=== PATIENT | male | born 1970 | race Caucasian/White ===

== ENCOUNTER 2020-08-01 18:49 | Inpatient (IN) | payer MEDICARE, MEDICAID ==
[~2020-08-01] VITALS: Ht 175.3 cm; Wt 72.1 kg
[2020-08-01 18:50] VITALS: BP 136/90
[2020-08-01 19:57] LABS: BILIRUBIN Negative (Negative); BLOOD 1+ (Negative); CLARITY Clear (Clear); COLOR Yellow (Yellow); GLUCOSE 3+ (Negative); KETONE 1+ (Negative); LEUKO ESTERASE Negative (Negative); NITRITE Negative (Negative); SPECIFIC GRAVITY >= 1.030 (1.001-1.030); UROBILINOGEN 0.2 E.U./dl (0.0-1.0)
[2020-08-01 20:04] LABS: HEMATOCRIT 58.3 % (42.0-52.0); MEAN CELL VOLUME 93.9 fl (80.0-94.0); MEAN CORPUSCULAR HGB 28.3 pg (27.0-31.0); MEAN CORPUSCULAR HGB CONC 30.2 g/dl (33.0-37.0); MEAN PLATELET VOLUME 10.7 fl (9.6-12.3); PLATELET COUNT AUTOMATED 600 10*3/uL (130-400); RED BLOOD COUNT 6.21 10*6/uL (4.50-5.90); RED CELL DISTRI WIDTH 12.7 % (0-14.5); WHITE BLOOD COUNT 27.9 10*3/uL (4.8-10.8)
[2020-08-01 20:06] LABS: URINE AMPHETAMINES < 1000 (1000ng/ml); URINE BARBITURATES < 200 (200ng/ml); URINE BENZODIAZEPINES < 200 (200ng/ml); URINE CANNABINOIDS (THC) < 50 (50ng/ml); URINE COCAINE < 300 (300ng/ml); URINE METHADONE < 300 (300ng/ml); URINE OPIATES < 300 (300ng/ml)
[2020-08-01 20:12] LABS: INTERNATIONAL NORM RATIO 1.1 (2.0-3.5)
[2020-08-01 20:16] LABS: BACTERIA TRACE
[2020-08-01 20:16] LABS: ALKALINE PHOSPHATASE 225 U/L (45-117); BUN 78 mg/dl (7-24); CHLORIDE 113 mmol/L (98-107); CREATININE 2.38 mg/dL (0.70-1.30); POTASSIUM 4.2 mmol/L (3.5-5.1); SGOT/AST 12 IU/L (3-35); SGPT/ALT 22 U/L (12-78); SODIUM 152 mmol/L (136-145); TOTAL PROTEIN 9.5 gm/dL (6.4-8.2)
[2020-08-01 20:19] LABS: TROPONIN I < 0.015 ng/ml (<0.045)
[2020-08-01 20:19] LABS: URINE PHENCYCLIDINE < 25 (25ng/ml)
[2020-08-01 20:22] LABS: ALBUMIN 2.9 gm/dl (3.1-4.5)
[2020-08-01 20:31] LABS: PLATELET SUFFICIENCY HIGH (NORMAL); TOTAL CELLS COUNTED 100 #CELLS
[2020-08-01 21:53] LABS: URINE CHLORIDE, RANDOM < 10 mmol/L
--- NOTE | 2020-08-01 22:00 | NUR ---
Rosalva in to see pt and orders to give pt 250 cc of fluid at this time.
[2020-08-01 22:01] LABS: CREATININE 2.29 mg/dL (0.70-1.30); POTASSIUM 3.8 mmol/L (3.5-5.1)
--- NOTE | 2020-08-01 23:42 | NUR ---
INSULIN ON HOLD PER DR HOLLINGSWORTH. IV POTASSIUM BEING STARTED. WILL CONTINUE TO MONITOR.
[2020-08-02] VITALS (18 sets, daily range): BP systolic 109–150; BP diastolic 38–90
--- NOTE | 2020-08-02 00:05 | NUR ---
THIS RN CONTACTED DR. HOLLINGSWORTH ABOUT KCL RATE. RATE SET AT 10 MEQ/HR PER DR HOLLINGSWORTH REQUEST
[2020-08-02 00:20] LABS: ABG BASE EXCESS -4.2 mmol/L (-2.0-2.0); ARTERIAL BLOOD GAS PH 7.338 (7.35-7.45)
--- NOTE | 2020-08-02 01:03 | NUR ---
PT LAYING ON COT AT THIS TIME. BREATHING TACHY AT 37. HR TACHY AT 138. VISIBLE FROM NURSING STATION. BEDRAILS X2. WILL CONTINUE TO MONITOR.
[2020-08-02 01:37] LABS: CREATININE 2.35 mg/dL (0.70-1.30); POTASSIUM 3.9 mmol/L (3.5-5.1)
--- NOTE | 2020-08-02 02:24 | NUR ---
DR HOLLINGSWORTH MADE AWARE OF PTS RECTAL TEMP OF 102.5 WELL PTS HR AND RESPS. STATES HE WILL PUT IN FOR RECTAL TYLENOL AND WILL COME REASSESS PT SOON.
--- NOTE | 2020-08-02 02:34 | NUR ---
INSULIN DRIP WOULD NOT SCAN. SYBIL REEVES WITNESSED ME ADDING THE 100U OF INSULIN AND ADDING IT TO A 100ML BAG. LYUBOV ROD FROM PHARMACY WAS ALSO EMAILED ABOUT THIS INCIDENCE.
--- NOTE | 2020-08-02 04:12 | NUR ---
BEDSIDE GLUCOSE 582. DR HOLLINGSWORTH AWARE. WILL CONTINUE TO MONITOR.
--- NOTE | 2020-08-02 05:59 | NUR ---
PT LAYING ON COT AT THIS TIME. NO DISTRESS NOTED. LAB AT BEDSIDE. WILL CONTINUE TO MONITOR.
--- NOTE | 2020-08-02 06:15 | NUR ---
THIS RN CONTACTED LOCUST GROVE ABOUT ZOSYN BEING UNVERIFIED. TO CORRECT PROBLEM. WILL CONTINUE TO MONITOR.
--- NOTE | 2020-08-02 06:28 | NUR ---
KUMARSYN STILL PENDING AT THIS TIME.
[2020-08-02 06:39] LABS: CREATININE 2.39 mg/dL (0.70-1.30)
[2020-08-02 06:49] LABS: HEMATOCRIT 59.2 % (42.0-52.0); MEAN CORPUSCULAR HGB 28.2 pg (27.0-31.0); MEAN CORPUSCULAR HGB CONC 31.1 g/dl (33.0-37.0); PLATELET COUNT AUTOMATED 522 10*3/uL (130-400); RED BLOOD COUNT 6.52 10*6/uL (4.50-5.90); RED CELL DISTRI WIDTH 13.3 % (0-14.5); WHITE BLOOD COUNT 26.6 10*3/uL (4.8-10.8)
[2020-08-02 06:54] LABS: MEAN CELL VOLUME 90.8 fl (80.0-94.0)
--- NOTE | 2020-08-02 07:10 | NUR ---
REPORT FROM BAYRON MITCHELL AT THIS TIME. PATIENT RESTING PEACEFULLY AT THIS TIME. APPEARS IN NO DISTRESS. WILL CONTINUE TO MONITOR.
--- NOTE | 2020-08-02 08:30 | NUR ---
HANNA CHILD RN TAKING CARE OF ALL ADMISSION ORDERS FOR PATIENT.
[2020-08-02 08:37] LABS: ATYPICAL LYMPHS 2 % (0-0); PLATELET SUFFICIENCY HIGH (NORMAL); TOTAL CELLS COUNTED 100 #CELLS
[2020-08-02 08:43] LABS: VITAMIN D, 25-HYDROXY 22.5 ng/mL (30-100)
--- NOTE | 2020-08-02 09:10 | NUR ---
PT UNRESPONSIVE AT THIS TIME. UNABLE TO COMPLETE MED REC PER PT CURRENT STATE. THERE IS NOT A CLAIM HISTORY.
--- NOTE | 2020-08-02 09:32 | NUR ---
LEFT MESSAGE FOR ANSWERING SERVICE. REQUESTED CALL BACK.
--- NOTE | 2020-08-02 09:50 | NUR ---
PODIATRY RESIDENT INFORMED OF NEW CONSULT. SAID SHE WAS ROUNDING WITH ATTENDING AND WILL BE DOWN TO ED TO SEE PT SOON.
[2020-08-02 10:12] LABS: CREATININE 2.23 mg/dL (0.70-1.30)
--- NOTE | 2020-08-02 10:16 | NUR ---
NOTIFIED OF CRITICAL SODIUM 166 AND CHLORIDE 135. ORDERS FOR 1/2NS @150CC/HR ORDERED AND TO PAGE AGAIN.
--- NOTE | 2020-08-02 10:19 | NUR ---
ALISON BROOKS PAGED AGAIN PER ORDERS. AWAITING CALL BACK.
--- NOTE | 2020-08-02 10:43 | NUR ---
PODIATRY IN TO SEE PT.
--- NOTE | 2020-08-02 11:18 | NUR ---
NEIGHBOR CALLED IN TO CHECK ON PT. PROVIDED NUMBER FOR PTS BROTHER IN [place]. SEE BULLETIN BOARD.
--- NOTE | 2020-08-02 11:30 | NUR ---
CONCERNS FOR TACHYCARDIA VOICED TO . ASH BROOKS CONSULTED PER ORDERS. CAROLYN IN CARDIO NOTIFIED. SAID SHE WOULD LET HIM KNOW.
--- NOTE | 2020-08-02 12:23 | NUR ---
DR BELLAMY IS IN ROOM WITH PATIENT AT THIS TIME WITH RESIDENTS.
--- NOTE | 2020-08-02 12:41 | NUR ---
Nursing screen received and chart reviewed. Patient was found unresponsive at home and brought to ED with blood glucose> 600. Patient is not responsive and not appropriate for OT at this time. If patient should have a significant decline in ADLs and safety then refer to OT. Thank you. Silvia Hawkins OTR/kerry
--- NOTE | 2020-08-02 12:58 | NUR ---
DVT TO LEFT LEG VEINS PER FR, NOTIFIED.
--- NOTE | 2020-08-02 13:28 | NUR ---
CALLED PHARMACY FOR D5W IT WAS STILL NOT SENT TO ER. STATED NEEDED IT STAT. DELIVERED ABOUT 5 MINUTES AFTER CALLING FOR MED.
--- NOTE | 2020-08-02 14:11 | NUR ---
CALLED PHARMACY FOR NEW INSULIN DRIP TO BE MIXED. PATIENT ON CONTINUOUS INSULIN DRIP AT 7 UNITS/HR.
--- NOTE | 2020-08-02 14:49 | NUR ---
PATIENT BGL AT 65. INSULING DRIP DONE INFUSING. NEW BAG WAS CALLED FOR AT THE PHARMACY. INSULIN DRIP HELD AT THIS TIME.
[2020-08-02 15:07] LABS: CREATININE 2.25 mg/dL (0.70-1.30); POTASSIUM 4.7 mmol/L (3.5-5.1)
--- NOTE | 2020-08-02 15:13 | NUR ---
CRITICAL SODIUM 170 AND CHLORIDE 139 CALLED TO .
--- NOTE | 2020-08-02 15:42 | NUR ---
CALLED DR LASSITER OFFICE REGARDING PATIENT LAB VALUES.
[2020-08-02 15:43] LABS: CSF TOTAL PROTEIN 83.1 mg/dL (15-45)
--- NOTE | 2020-08-02 15:48 | NUR ---
DR CAMILO RETURNED CALL. STATES TO RESTART INSULIN DRIP AT 5 UNITS/HR AND ALSO TO GIVE A BOLUS OF THE D5W OF 250ML THEN TITRATE THE D5W TO 250 ML/HR.
--- NOTE | 2020-08-02 15:59 | NUR ---
DR CAMILO LOST SERVICE AND CALLED THIS NURSE BACK. STATES TO RUN 1000ML OF D5W WIDE OPEN. AFTER THAT BAG IS FINISHED HE WANTS THE INSULIN DRIP RESTARTED AT 5UNITS/HR AND ALSO A BNP ORDERED. STATES TO THEN AFTER THAT START A SECOND BAG OF 1000ML OF D5W AT 250ML/HR. SECOND D5W BAG HAS BEEN ORDERED A TELEPHONE ORDER.
[2020-08-02 16:02] LABS: CSF RBC 1000 /uL; CSF WBC 18 /uL
--- NOTE | 2020-08-02 16:19 | NUR ---
PATIENT PASSCODE IS "CRYSTAL" AND HIS BEST FRIEND IS MARY JANE.
[2020-08-02 16:35] LABS: CSF LYMPHOCYTES 88 % (40-80); CSF MONOCYTES 10 % (15-45)
[2020-08-02 16:38] LABS: CLARITY CLEAR; COLOR COLORLESS
[2020-08-02 18:39] LABS: CREATININE 2.25 mg/dL (0.70-1.30); POTASSIUM 4.9 mmol/L (3.5-5.1)
--- NOTE | 2020-08-02 19:30 | NUR ---
REPORT GIVEN TO BAYRON MITCHELL.
--- NOTE | 2020-08-02 20:15 | NUR ---
[facility] 20 MIN ETA FOR PATIENT. REPORT HAS BEEN GIVEN TO ALTON MITCHELL AT [facility].
--- NOTE | 2020-08-02 20:38 | NUR ---
[facility] AT BEDSIDE AT THIS TIME. KATIE MITCHELL AND THIS RN GAVE BEDSIDE REPORT AT THIS TIME.
--- NOTE | 2020-08-02 20:58 | NUR ---
500 ML NS BAG PULLED FOR STAT AT THIS TIME. WILL ACQUIRE ORDER FROM .
--- NOTE | 2020-08-02 22:54 | NUR ---
ALTON MITCHELL FROM [facility] CALLED AND REQUESTED LAB RESULTS FROM SCAN AT THIS TIME. LABS WERE FAXED TO NUMBER PROVIDED.
--- NOTE | 2020-08-03 09:28 | NUR ---
CHART ACCESSED AFTER CALL FROM [facility] LOOKING FOR NOK INFORMATION
[2020-08-04 16:11] LABS: HSV-2 DNA Negative (Negative)
== END 2020-08-02 21:00 | disposition short-term general hospital (02) | DRG 871 ==
LOC: ED 18:49 → EDHOLD 22:23
PROVIDERS: Emergency Medicine; Internal Medicine; Internal Medicine Nephrology; Student in an Organized Health Care Education/Training Program; ADMIT Student in an Organized Health Care Education/Training Program; ATTEND Student in an Organized Health Care Education/Training Program
PROC: 009U3ZX Drainage of Spinal Canal, Percutaneous Approach, Diagnostic (ICD-10-PCS; principal; 2020-08-02)
DX: A41.9 Sepsis, unspecified organism (principal); E11.00 Type 2 diabetes mellitus with hyperosmolarity without nonketotic hyperglycemic-hyperosmolar coma (NKHHC); J18.9 Pneumonia, unspecified organism; N17.0 Acute kidney failure with tubular necrosis; G93.41 Metabolic encephalopathy; L03.115 Cellulitis of right lower limb; E87.2 Acidosis; E87.0 Hyperosmolality and hypernatremia; I82.402 Acute embolism and thrombosis of unspecified deep veins of left lower extremity; I69.351 Hemiplegia and hemiparesis following cerebral infarction affecting right dominant side; E11.9 Type 2 diabetes mellitus without complications; E11.65 Type 2 diabetes mellitus with hyperglycemia; E87.8 Other disorders of electrolyte and fluid balance, not elsewhere classified; D47.3 Essential (hemorrhagic) thrombocythemia; E83.41 Hypermagnesemia; I48.0 Paroxysmal atrial fibrillation; G30.9 Alzheimer's disease, unspecified; E86.0 Dehydration; D75.1 Secondary polycythemia; R65.20 Severe sepsis without septic shock; Z87.891 Personal history of nicotine dependence

== ENCOUNTER 2020-08-24 19:09 | Emergency (ER) | payer MEDICARE, MEDICAID ==
[~2020-08-24] VITALS: Ht 180.3 cm; Wt 101.6 kg
[2020-08-24 19:33] LABS: HEMATOCRIT 36.5 % (42.0-52.0); MEAN CELL VOLUME 83.7 fl (80.0-94.0); MEAN CORPUSCULAR HGB 27.1 pg (27.0-31.0); MEAN CORPUSCULAR HGB CONC 32.3 g/dl (33.0-37.0); MEAN PLATELET VOLUME 9.2 fl (9.6-12.3); PLATELET COUNT AUTOMATED 461 10*3/uL (130-400); RED BLOOD COUNT 4.36 10*6/uL (4.50-5.90); RED CELL DISTRI WIDTH 12.5 % (0-14.5); WHITE BLOOD COUNT 15.8 10*3/uL (4.8-10.8)
[2020-08-24 19:44] LABS: INTERNATIONAL NORM RATIO 1.4 (2.0-3.5)
[2020-08-24 19:49] LABS: ALBUMIN 2.3 gm/dl (3.1-4.5); ALKALINE PHOSPHATASE 123 U/L (45-117); BUN 20 mg/dl (7-24); CHLORIDE 104 mmol/L (98-107); CREATININE 1.03 mg/dL (0.70-1.30); POTASSIUM 4.4 mmol/L (3.5-5.1); SGOT/AST 15 IU/L (3-35); SGPT/ALT 27 U/L (12-78); SODIUM 135 mmol/L (136-145); TOTAL PROTEIN 7.6 gm/dL (6.4-8.2)
[2020-08-24 20:28] LABS: PLATELET SUFFICIENCY NORMAL (NORMAL); TOTAL CELLS COUNTED 100 #CELLS
== END 2020-08-24 22:35 | disposition short-term general hospital (02) ==
LOC: ED 19:09
PROVIDERS: Internal Medicine
DX: T83.098A Other mechanical complication of other urinary catheter, initial encounter (principal); N48.89 Other specified disorders of penis; Y92.89 Other specified places as the place of occurrence of the external cause

== ENCOUNTER 2020-10-07 22:16 | Emergency (ER) | payer MEDICARE, MEDICAID ==
[~2020-10-07] VITALS: Ht 172.7 cm; Wt 68.5 kg
[2020-10-07 23:37] LABS: BASO % 0.1 % (0.0-1.0); EOS # 0.1 10*3/uL (0.0-0.4); EOS % 0.4 % (1.0-4.0); HEMATOCRIT 37.9 % (42.0-52.0); LYMPH # 2.1 10*3/uL (1.3-4.4); LYMPH % 13.5 % (27.0-41.0); MEAN CELL VOLUME 79.3 fl (80.0-94.0); MEAN CORPUSCULAR HGB 25.3 pg (27.0-31.0); MEAN CORPUSCULAR HGB CONC 31.9 g/dl (33.0-37.0); MONO % 6.6 % (3.0-9.0); NEUT # 12.2 10*3/uL (2.3-7.9); NEUT % 77.8 % (47.0-73.0); PLATELET COUNT AUTOMATED 380 10*3/uL (130-400); RED BLOOD COUNT 4.78 10*6/uL (4.50-5.90); RED CELL DISTRI WIDTH 15.1 % (0-14.5); WHITE BLOOD COUNT 15.7 10*3/uL (4.8-10.8)
[2020-10-07 23:54] LABS: ALBUMIN 2.6 gm/dl (3.1-4.5); ALKALINE PHOSPHATASE 87 U/L (45-117); BUN 24 mg/dl (7-24); CHLORIDE 102 mmol/L (98-107); CREATININE 0.72 mg/dL (0.70-1.30); POTASSIUM 4.5 mmol/L (3.5-5.1); SGOT/AST 5 IU/L (3-35); SGPT/ALT 20 U/L (12-78); SODIUM 132 mmol/L (136-145); TOTAL PROTEIN 6.7 gm/dL (6.4-8.2)
== END 2020-10-08 01:00 | disposition short-term general hospital (02) ==
LOC: ED 22:16
PROVIDERS: Emergency Medicine
DX: N36.0 Urethral fistula (principal); E78.00 Pure hypercholesterolemia, unspecified; Z86.718 Personal history of other venous thrombosis and embolism

== ENCOUNTER → 2021-08-02 | Outpatient (CLI) | payer MEDICARE, MEDICAID ==
[2021-08-02 10:16] LABS: ALBUMIN 3.8 gm/dl (3.1-4.5); ALKALINE PHOSPHATASE 73 U/L (45-117); BUN 13 mg/dl (7-24); CHLORIDE 105 mmol/L (98-107); CREATININE 0.72 mg/dL (0.70-1.30); POTASSIUM 5.1 mmol/L (3.5-5.1); SGOT/AST 20 IU/L (3-35); SGPT/ALT 43 U/L (12-78); SODIUM 138 mmol/L (136-145); TOTAL PROTEIN 7.6 gm/dL (6.4-8.2)
[2021-08-02 10:53] LABS: BASO % 0.4 % (0.0-1.0); EOS # 0.3 10*3/uL (0.0-0.4); EOS % 2.8 % (1.0-4.0); HEMATOCRIT 42.9 % (42.0-52.0); LYMPH % 21.2 % (27.0-41.0); MEAN CELL VOLUME 86.3 fl (80.0-94.0); MEAN CORPUSCULAR HGB 29.4 pg (27.0-31.0); MEAN PLATELET VOLUME 10.1 fl (9.6-12.3); MONO # 0.7 10*3/uL (0.1-1.0); MONO % 7.3 % (3.0-9.0); NEUT # 6.3 10*3/uL (2.3-7.9); PLATELET COUNT AUTOMATED 276 10*3/uL (130-400); RED BLOOD COUNT 4.97 10*6/uL (4.50-5.90); RED CELL DISTRI WIDTH 12.6 % (0-14.5); WHITE BLOOD COUNT 9.3 10*3/uL (4.8-10.8)
[2021-08-02 11:03] LABS: BILIRUBIN Negative (Negative); BLOOD Negative (Negative); CLARITY Clear (Clear); COLOR Yellow (Yellow); GLUCOSE Negative (Negative); KETONE Negative (Negative); LEUKO ESTERASE Negative (Negative); NITRITE Negative (Negative); SPECIFIC GRAVITY >= 1.030 (1.001-1.030); UROBILINOGEN 0.2 E.U./dl (0.0-1.0)
[2021-08-02 11:33] LABS: RBC 0-2 rbc/hpf (0-2); WBC 0-2 wbc/hpf (0-5)
[2021-08-04 07:13] LABS: TESTOSTERONE FREE, (DIRECT) 9.4 pg/mL (7.2-24.0)
== END | disposition home or self-care (01) ==
LOC: LAB 09:29 → CT 10:00
PROVIDERS: ATTEND Urology
DX: Z12.5 Encounter for screening for malignant neoplasm of prostate (principal); R31.9 Hematuria, unspecified; D40.0 Neoplasm of uncertain behavior of prostate

== ENCOUNTER → 2021-08-29 | Outpatient (CLI) | payer MEDICARE, MEDICAID ==
[2021-08-29 11:05] LABS: BASO # 0.1 10*3/uL (0.0-0.1); BASO % 0.7 % (0.0-1.0); EOS % 0.3 % (1.0-4.0); LYMPH # 0.6 10*3/uL (1.3-4.4); MEAN CELL VOLUME 86.7 fl (80.0-94.0); MEAN CORPUSCULAR HGB 29.3 pg (27.0-31.0); MEAN CORPUSCULAR HGB CONC 33.8 g/dl (33.0-37.0); MEAN PLATELET VOLUME 9.6 fl (9.6-12.3); MONO # 0.8 10*3/uL (0.1-1.0); MONO % 7.4 % (3.0-9.0); NEUT % 85.3 % (47.0-73.0); PLATELET COUNT AUTOMATED 240 10*3/uL (130-400); RED BLOOD COUNT 5.19 10*6/uL (4.50-5.90); RED CELL DISTRI WIDTH 12.3 % (0-14.5); WHITE BLOOD COUNT 10.5 10*3/uL (4.8-10.8)
[2021-08-29 11:33] LABS: ALBUMIN 3.8 gm/dl (3.1-4.5); BUN 20 mg/dl (7-24); CHLORIDE 102 mmol/L (98-107); CREATININE 0.83 mg/dL (0.70-1.30); POTASSIUM 4.6 mmol/L (3.5-5.1); PREALBUMIN 22 mg/dl (20-40); SODIUM 135 mmol/L (136-145)
== END | disposition home or self-care (01) ==
LOC: LAB 00:11 → WOUNDCARE 00:11
PROVIDERS: ATTEND Nurse Practitioner Family
DX: E11.621 Type 2 diabetes mellitus with foot ulcer (principal); L97.512 Non-pressure chronic ulcer of other part of right foot with fat layer exposed; L84 Corns and callosities; I10 Essential (primary) hypertension; E78.5 Hyperlipidemia, unspecified; Z71.89 Other specified counseling; Z79.84 Long term (current) use of oral hypoglycemic drugs; Z79.899 Other long term (current) drug therapy

== ENCOUNTER → 2021-09-05 | Outpatient (CLI) | payer MEDICARE, MEDICAID | LOC: WOUNDCARE 03:57 | PROVIDERS: ATTEND Nurse Practitioner Family | DX: E11.621 Type 2 diabetes mellitus with foot ulcer (principal); L97.512 Non-pressure chronic ulcer of other part of right foot with fat layer exposed; L84 Corns and callosities; I10 Essential (primary) hypertension; E78.5 Hyperlipidemia, unspecified; Z71.89 Other specified counseling ==

== ENCOUNTER → 2021-09-12 | Outpatient (CLI) | payer MEDICARE, MEDICAID | LOC: WOUNDCARE 01:25 | PROVIDERS: ATTEND Nurse Practitioner Family | DX: E11.621 Type 2 diabetes mellitus with foot ulcer (principal); L97.512 Non-pressure chronic ulcer of other part of right foot with fat layer exposed; L84 Corns and callosities; I10 Essential (primary) hypertension; E78.5 Hyperlipidemia, unspecified; Z71.89 Other specified counseling ==

== ENCOUNTER → 2021-09-17 | Outpatient (CLI) | payer MEDICARE, MEDICAID | LOC: WOUNDCARE 02:42 | PROVIDERS: ATTEND Nurse Practitioner Family | DX: E11.621 Type 2 diabetes mellitus with foot ulcer (principal); L97.512 Non-pressure chronic ulcer of other part of right foot with fat layer exposed; L84 Corns and callosities; I10 Essential (primary) hypertension; E78.5 Hyperlipidemia, unspecified; Z71.89 Other specified counseling ==

== ENCOUNTER → 2021-09-24 | Outpatient (CLI) | payer MEDICARE, MEDICAID | LOC: WOUNDCARE 01:36 | PROVIDERS: ATTEND Nurse Practitioner Family | DX: E11.621 Type 2 diabetes mellitus with foot ulcer (principal); L97.512 Non-pressure chronic ulcer of other part of right foot with fat layer exposed; L84 Corns and callosities; I10 Essential (primary) hypertension; E78.5 Hyperlipidemia, unspecified; Z71.89 Other specified counseling ==

== ENCOUNTER → 2021-10-03 | Outpatient (CLI) | payer MEDICARE, MEDICAID | LOC: WOUNDCARE 10-01 01:32 | PROVIDERS: ATTEND Nurse Practitioner Family | DX: E11.621 Type 2 diabetes mellitus with foot ulcer (principal); L97.512 Non-pressure chronic ulcer of other part of right foot with fat layer exposed; L84 Corns and callosities; I10 Essential (primary) hypertension; E78.5 Hyperlipidemia, unspecified; Z71.89 Other specified counseling ==

== ENCOUNTER → 2021-10-10 | Outpatient (CLI) | payer MEDICARE, MEDICAID | LOC: WOUNDCARE 10-08 02:28 | PROVIDERS: ATTEND Nurse Practitioner Family | DX: T86.828 Other complications of skin graft (allograft) (autograft) (principal); E11.621 Type 2 diabetes mellitus with foot ulcer; L97.522 Non-pressure chronic ulcer of other part of left foot with fat layer exposed; L84 Corns and callosities; I10 Essential (primary) hypertension; E78.5 Hyperlipidemia, unspecified; Z71.89 Other specified counseling; Y83.2 Surgical operation with anastomosis, bypass or graft as the cause of abnormal reaction of the patient, or of later complication, without mention of misadventure at the time of the procedure; Y92.238 Other place in hospital as the place of occurrence of the external cause ==

== ENCOUNTER → 2021-10-15 | Outpatient (CLI) | payer MEDICARE, MEDICAID | LOC: WOUNDCARE 01:04 | PROVIDERS: ATTEND Nurse Practitioner Family | DX: E11.621 Type 2 diabetes mellitus with foot ulcer (principal); L97.522 Non-pressure chronic ulcer of other part of left foot with fat layer exposed; L84 Corns and callosities; I10 Essential (primary) hypertension; E78.5 Hyperlipidemia, unspecified; Z71.89 Other specified counseling; Y83.2 Surgical operation with anastomosis, bypass or graft as the cause of abnormal reaction of the patient, or of later complication, without mention of misadventure at the time of the procedure ==

== ENCOUNTER → 2021-10-22 | Outpatient (CLI) | payer MEDICARE, MEDICAID | LOC: WOUNDCARE 00:35 | PROVIDERS: ATTEND Nurse Practitioner Family | DX: T86.828 Other complications of skin graft (allograft) (autograft) (principal); E11.621 Type 2 diabetes mellitus with foot ulcer; L97.522 Non-pressure chronic ulcer of other part of left foot with fat layer exposed; L84 Corns and callosities; I10 Essential (primary) hypertension; E78.5 Hyperlipidemia, unspecified; Z71.89 Other specified counseling; Y83.2 Surgical operation with anastomosis, bypass or graft as the cause of abnormal reaction of the patient, or of later complication, without mention of misadventure at the time of the procedure ==

== ENCOUNTER → 2021-10-29 | Outpatient (CLI) | payer MEDICARE, MEDICAID | LOC: WOUNDCARE 01:35 | PROVIDERS: ATTEND Nurse Practitioner Family | DX: T86.828 Other complications of skin graft (allograft) (autograft) (principal); E11.621 Type 2 diabetes mellitus with foot ulcer; L97.522 Non-pressure chronic ulcer of other part of left foot with fat layer exposed; L84 Corns and callosities; I10 Essential (primary) hypertension; E78.5 Hyperlipidemia, unspecified; Z71.89 Other specified counseling; Y83.2 Surgical operation with anastomosis, bypass or graft as the cause of abnormal reaction of the patient, or of later complication, without mention of misadventure at the time of the procedure ==

== ENCOUNTER → 2021-11-05 | Outpatient (CLI) | payer MEDICARE, MEDICAID | LOC: WOUNDCARE 00:48 | PROVIDERS: ATTEND Nurse Practitioner Family | DX: T86.828 Other complications of skin graft (allograft) (autograft) (principal); E11.621 Type 2 diabetes mellitus with foot ulcer; L97.522 Non-pressure chronic ulcer of other part of left foot with fat layer exposed; L84 Corns and callosities; I10 Essential (primary) hypertension; E78.5 Hyperlipidemia, unspecified; Z71.89 Other specified counseling; Y83.2 Surgical operation with anastomosis, bypass or graft as the cause of abnormal reaction of the patient, or of later complication, without mention of misadventure at the time of the procedure ==

== ENCOUNTER → 2021-11-12 | Outpatient (CLI) | payer MEDICARE, MEDICAID | LOC: WOUNDCARE 09:11 | PROVIDERS: ATTEND Nurse Practitioner Family | DX: E11.621 Type 2 diabetes mellitus with foot ulcer (principal); L97.512 Non-pressure chronic ulcer of other part of right foot with fat layer exposed; L84 Corns and callosities; I10 Essential (primary) hypertension; E78.5 Hyperlipidemia, unspecified; Z71.89 Other specified counseling ==

== ENCOUNTER → 2021-11-19 | Outpatient (CLI) | payer MEDICARE, MEDICAID | LOC: WOUNDCARE 00:55 | PROVIDERS: ATTEND Nurse Practitioner Family | DX: E11.621 Type 2 diabetes mellitus with foot ulcer (principal); L97.512 Non-pressure chronic ulcer of other part of right foot with fat layer exposed; L84 Corns and callosities; I10 Essential (primary) hypertension; E78.5 Hyperlipidemia, unspecified; Z71.89 Other specified counseling ==

== ENCOUNTER → 2021-11-26 | Outpatient (CLI) | payer MEDICARE, MEDICAID | LOC: WOUNDCARE 00:36 | PROVIDERS: ATTEND Nurse Practitioner Family | DX: E11.621 Type 2 diabetes mellitus with foot ulcer (principal); L97.512 Non-pressure chronic ulcer of other part of right foot with fat layer exposed; L84 Corns and callosities; I10 Essential (primary) hypertension; E78.5 Hyperlipidemia, unspecified; Z71.89 Other specified counseling ==

== ENCOUNTER → 2021-12-10 | Outpatient (CLI) | payer MEDICARE, MEDICAID | LOC: WOUNDCARE 00:49 | PROVIDERS: ATTEND Nurse Practitioner Family | DX: E11.621 Type 2 diabetes mellitus with foot ulcer (principal); L97.512 Non-pressure chronic ulcer of other part of right foot with fat layer exposed; L84 Corns and callosities; E78.5 Hyperlipidemia, unspecified; I10 Essential (primary) hypertension; Z71.89 Other specified counseling ==

== ENCOUNTER → 2021-12-17 | Outpatient (CLI) | payer MEDICARE, MEDICAID | END | disposition home or self-care (01) | LOC: WOUNDCARE 00:58 | PROVIDERS: ATTEND Nurse Practitioner Family | DX: E11.621 Type 2 diabetes mellitus with foot ulcer (principal); L97.512 Non-pressure chronic ulcer of other part of right foot with fat layer exposed; L84 Corns and callosities; E78.5 Hyperlipidemia, unspecified; I10 Essential (primary) hypertension; Z71.89 Other specified counseling ==

== ENCOUNTER → 2021-12-24 | Outpatient (CLI) | payer MEDICARE, MEDICAID | END | disposition home or self-care (01) | LOC: WOUNDCARE 00:39 | PROVIDERS: ATTEND Nurse Practitioner Family | DX: E11.621 Type 2 diabetes mellitus with foot ulcer (principal); L97.512 Non-pressure chronic ulcer of other part of right foot with fat layer exposed; E78.5 Hyperlipidemia, unspecified; I10 Essential (primary) hypertension; F17.200 Nicotine dependence, unspecified, uncomplicated; Z71.89 Other specified counseling ==

== ENCOUNTER → 2021-12-31 | Outpatient (CLI) | payer MEDICARE, MEDICAID | END | disposition home or self-care (01) | LOC: WOUNDCARE 01:32 | PROVIDERS: ATTEND Nurse Practitioner Family | DX: E11.621 Type 2 diabetes mellitus with foot ulcer (principal); L97.512 Non-pressure chronic ulcer of other part of right foot with fat layer exposed; L84 Corns and callosities; E78.5 Hyperlipidemia, unspecified; I10 Essential (primary) hypertension; F17.200 Nicotine dependence, unspecified, uncomplicated; Z71.89 Other specified counseling ==

== ENCOUNTER → 2022-01-10 | Outpatient (CLI) | payer MEDICARE, MEDICAID | END | disposition home or self-care (01) | LOC: WOUNDCARE 00:21 | PROVIDERS: ATTEND Nurse Practitioner Family | DX: E11.621 Type 2 diabetes mellitus with foot ulcer (principal); L97.512 Non-pressure chronic ulcer of other part of right foot with fat layer exposed; L84 Corns and callosities; E78.5 Hyperlipidemia, unspecified; I10 Essential (primary) hypertension; Z71.89 Other specified counseling ==

== ENCOUNTER → 2022-01-10 | Outpatient (CLI) | payer MEDICARE, MEDICAID | END | disposition home or self-care (01) | LOC: US 08:55 | PROVIDERS: ATTEND Nurse Practitioner Family | DX: E11.621 Type 2 diabetes mellitus with foot ulcer (principal); M79.661 Pain in right lower leg; L97.512 Non-pressure chronic ulcer of other part of right foot with fat layer exposed; L89.896 Pressure-induced deep tissue damage of other site; L97.509 Non-pressure chronic ulcer of other part of unspecified foot with unspecified severity ==

== ENCOUNTER → 2022-01-17 | Outpatient (CLI) | payer MEDICARE, MEDICAID | END | disposition home or self-care (01) | LOC: WOUNDCARE 00:13 | PROVIDERS: ATTEND Nurse Practitioner Family | DX: E11.621 Type 2 diabetes mellitus with foot ulcer (principal); L97.512 Non-pressure chronic ulcer of other part of right foot with fat layer exposed; L84 Corns and callosities; I10 Essential (primary) hypertension; E78.5 Hyperlipidemia, unspecified; Z71.89 Other specified counseling ==

== ENCOUNTER → 2022-02-13 | Outpatient (CLI) | payer OTHER, MEDICAID | END | disposition home or self-care (01) | LOC: WOUNDCARE 01:49 | PROVIDERS: ATTEND Nurse Practitioner Family | DX: E11.621 Type 2 diabetes mellitus with foot ulcer (principal); L97.512 Non-pressure chronic ulcer of other part of right foot with fat layer exposed; L84 Corns and callosities; E78.5 Hyperlipidemia, unspecified; I10 Essential (primary) hypertension; Z71.89 Other specified counseling ==

== ENCOUNTER → 2022-02-28 | Outpatient (CLI) | payer OTHER, MEDICAID | END | disposition home or self-care (01) | LOC: WOUNDCARE 01:50 → Z2ND 15:46 → WOUNDCARE 16:08 | PROVIDERS: ATTEND Nurse Practitioner Family | DX: E11.621 Type 2 diabetes mellitus with foot ulcer (principal); L97.512 Non-pressure chronic ulcer of other part of right foot with fat layer exposed; L84 Corns and callosities; E78.5 Hyperlipidemia, unspecified; I10 Essential (primary) hypertension; Z71.89 Other specified counseling ==

== ENCOUNTER → 2022-03-28 | Outpatient (CLI) | payer OTHER, MEDICAID | END | disposition home or self-care (01) | LOC: WOUNDCARE 10:36 | PROVIDERS: ATTEND Nurse Practitioner Family | DX: E11.621 Type 2 diabetes mellitus with foot ulcer (principal); L97.512 Non-pressure chronic ulcer of other part of right foot with fat layer exposed; L84 Corns and callosities; E78.5 Hyperlipidemia, unspecified; I10 Essential (primary) hypertension; Z71.89 Other specified counseling ==

== ENCOUNTER → 2022-04-18 | Outpatient (CLI) | payer OTHER, MEDICAID | END | disposition home or self-care (01) | LOC: WOUNDCARE 02:23 | PROVIDERS: ATTEND Nurse Practitioner Family | DX: E11.621 Type 2 diabetes mellitus with foot ulcer (principal); L97.512 Non-pressure chronic ulcer of other part of right foot with fat layer exposed; L84 Corns and callosities; E78.5 Hyperlipidemia, unspecified; I10 Essential (primary) hypertension; Z71.89 Other specified counseling ==

== ENCOUNTER → 2022-05-02 | Outpatient (CLI) | payer OTHER, MEDICAID | END | disposition home or self-care (01) | LOC: WOUNDCARE 01:01 | PROVIDERS: ATTEND Nurse Practitioner Family | DX: E11.621 Type 2 diabetes mellitus with foot ulcer (principal); L97.512 Non-pressure chronic ulcer of other part of right foot with fat layer exposed; L84 Corns and callosities; E78.5 Hyperlipidemia, unspecified; I10 Essential (primary) hypertension; Z71.89 Other specified counseling ==

== ENCOUNTER → 2022-05-16 | Outpatient (CLI) | payer OTHER, MEDICAID | END | disposition home or self-care (01) | LOC: WOUNDCARE 00:58 | PROVIDERS: ATTEND Nurse Practitioner Family | DX: E11.621 Type 2 diabetes mellitus with foot ulcer (principal); L97.512 Non-pressure chronic ulcer of other part of right foot with fat layer exposed; L84 Corns and callosities; E78.5 Hyperlipidemia, unspecified; I10 Essential (primary) hypertension; Z71.89 Other specified counseling ==

== ENCOUNTER → 2022-05-22 | Outpatient (CLI) | payer OTHER, MEDICAID | END | disposition home or self-care (01) | LOC: WOUNDCARE 04:47 | PROVIDERS: ATTEND Surgery | DX: E11.621 Type 2 diabetes mellitus with foot ulcer (principal); L97.512 Non-pressure chronic ulcer of other part of right foot with fat layer exposed; L84 Corns and callosities; E78.5 Hyperlipidemia, unspecified; I10 Essential (primary) hypertension; Z71.89 Other specified counseling; Z87.891 Personal history of nicotine dependence ==

== ENCOUNTER → 2022-05-31 | Outpatient (CLI) | payer OTHER, MEDICAID | LOC: WOUNDCARE 00:51 → Z2ND 18:40 | PROVIDERS: ATTEND Nurse Practitioner Family | DX: E11.621 Type 2 diabetes mellitus with foot ulcer (principal); L97.512 Non-pressure chronic ulcer of other part of right foot with fat layer exposed; L84 Corns and callosities; E78.5 Hyperlipidemia, unspecified; I10 Essential (primary) hypertension; Z71.89 Other specified counseling ==

== ENCOUNTER → 2022-06-14 | Outpatient (CLI) | payer OTHER, MEDICAID | END | disposition home or self-care (01) | LOC: WOUNDCARE 01:10 | PROVIDERS: ATTEND Nurse Practitioner Family | DX: E11.621 Type 2 diabetes mellitus with foot ulcer (principal); L97.512 Non-pressure chronic ulcer of other part of right foot with fat layer exposed; Z71.89 Other specified counseling; E78.5 Hyperlipidemia, unspecified; I10 Essential (primary) hypertension; L84 Corns and callosities ==

== ENCOUNTER → 2022-06-28 | Outpatient (CLI) | payer OTHER, MEDICAID | END | disposition home or self-care (01) | LOC: WOUNDCARE 02:16 | PROVIDERS: ATTEND Nurse Practitioner Family | DX: E11.621 Type 2 diabetes mellitus with foot ulcer (principal); L97.512 Non-pressure chronic ulcer of other part of right foot with fat layer exposed; L84 Corns and callosities; E78.5 Hyperlipidemia, unspecified; I10 Essential (primary) hypertension; Z71.89 Other specified counseling ==

== ENCOUNTER → 2022-07-18 | Outpatient (CLI) | payer OTHER, MEDICAID ==
[2022-07-18 10:53] LABS: BUN 28 mg/dl (7-24); CHLORIDE 108 mmol/L (98-107); POTASSIUM 5.4 mmol/L (3.5-5.1); SODIUM 138 mmol/L (136-145)
[2022-07-18 11:02] LABS: ALKALINE PHOSPHATASE 81 U/L (45-117); CHOLESTEROL 124 mg/dL (<200); CREATININE 0.87 mg/dL (0.70-1.30); LDL CHOLESTEROL 56 mg/dL (9-159); SGOT/AST 18 IU/L (3-35); SGPT/ALT 45 U/L (12-78); TOTAL PROTEIN 7.6 gm/dL (6.4-8.2); TRIGLYCERIDES 97 mg/dl (<150)
[2022-07-19 09:07] LABS: CREATININE,URINE 63.1 mg/dL (Not Estab.)
== END | disposition home or self-care (01) ==
LOC: LAB 09:36
PROVIDERS: ATTEND Nurse Practitioner Family
DX: E11.9 Type 2 diabetes mellitus without complications (principal); E78.2 Mixed hyperlipidemia; I10 Essential (primary) hypertension

== ENCOUNTER → 2022-07-24 | Outpatient (CLI) | payer OTHER, MEDICAID | END | disposition home or self-care (01) | LOC: WOUNDCARE 01:21 | PROVIDERS: ATTEND Nurse Practitioner Family | DX: E11.621 Type 2 diabetes mellitus with foot ulcer (principal); L97.512 Non-pressure chronic ulcer of other part of right foot with fat layer exposed; L84 Corns and callosities; E78.5 Hyperlipidemia, unspecified; I10 Essential (primary) hypertension; Z71.89 Other specified counseling ==

== ENCOUNTER → 2022-08-21 | Outpatient (CLI) | payer OTHER, MEDICAID | END | disposition home or self-care (01) | LOC: WOUNDCARE 01:10 | PROVIDERS: ATTEND Nurse Practitioner Family | DX: E11.621 Type 2 diabetes mellitus with foot ulcer (principal); L97.512 Non-pressure chronic ulcer of other part of right foot with fat layer exposed; L84 Corns and callosities; I10 Essential (primary) hypertension; E78.5 Hyperlipidemia, unspecified; Z71.89 Other specified counseling ==

== ENCOUNTER → 2022-09-12 | Outpatient (CLI) | payer OTHER, MEDICAID | END | disposition home or self-care (01) | LOC: WOUNDCARE 00:36 | PROVIDERS: ATTEND Nurse Practitioner Family | DX: E11.621 Type 2 diabetes mellitus with foot ulcer (principal); L97.512 Non-pressure chronic ulcer of other part of right foot with fat layer exposed; L84 Corns and callosities; E78.5 Hyperlipidemia, unspecified; I10 Essential (primary) hypertension; Z71.89 Other specified counseling ==

== ENCOUNTER → 2022-10-03 | Outpatient (CLI) | payer OTHER, MEDICAID | END | disposition home or self-care (01) | LOC: WOUNDCARE 02:39 | PROVIDERS: ATTEND Nurse Practitioner Family | DX: E11.621 Type 2 diabetes mellitus with foot ulcer (principal); L97.512 Non-pressure chronic ulcer of other part of right foot with fat layer exposed; L84 Corns and callosities; E78.5 Hyperlipidemia, unspecified; I10 Essential (primary) hypertension; Z71.89 Other specified counseling ==

== ENCOUNTER → 2022-10-21 | Outpatient (CLI) | payer OTHER, MEDICAID | END | disposition home or self-care (01) | LOC: WOUNDCARE 00:23 | PROVIDERS: ATTEND Podiatrist Foot & Ankle Surgery | DX: E11.621 Type 2 diabetes mellitus with foot ulcer (principal); L97.512 Non-pressure chronic ulcer of other part of right foot with fat layer exposed; L84 Corns and callosities; E78.5 Hyperlipidemia, unspecified; I10 Essential (primary) hypertension; Z71.89 Other specified counseling ==

== ENCOUNTER → 2022-10-24 | Outpatient (CLI) | payer OTHER, MEDICAID ==
[2022-10-24 10:27] LABS: BASO # 0.1 10*3/uL (0.0-0.1); BASO % 0.6 % (0.0-1.0); EOS # 0.3 10*3/uL (0.0-0.4); EOS % 2.7 % (1.0-4.0); HEMATOCRIT 45.8 % (42.0-52.0); LYMPH # 1.9 10*3/uL (1.3-4.4); LYMPH % 17.4 % (27.0-41.0); MEAN CELL VOLUME 86.7 fl (80.0-94.0); MEAN CORPUSCULAR HGB 29.5 pg (27.0-31.0); MEAN CORPUSCULAR HGB CONC 34.1 g/dl (33.0-37.0); MEAN PLATELET VOLUME 9.6 fl (9.6-12.3); MONO # 0.8 10*3/uL (0.1-1.0); MONO % 7.2 % (3.0-9.0); NEUT # 7.8 10*3/uL (2.3-7.9); NEUT % 71.5 % (47.0-73.0); PLATELET COUNT AUTOMATED 265 10*3/uL (130-400); RED BLOOD COUNT 5.28 10*6/uL (4.50-5.90); RED CELL DISTRI WIDTH 12.8 % (0-14.5); WHITE BLOOD COUNT 10.9 10*3/uL (4.8-10.8)
[2022-10-24 11:10] LABS: ALKALINE PHOSPHATASE 78 U/L (46-116); BUN 21 mg/dl (9-23); CHLORIDE 103 mmol/L (98-107); CHOLESTEROL 132 mg/dL (<200); LDL CHOLESTEROL 60 mg/dL (9-159); SGPT/ALT 48 U/L (10-49); TOTAL PROTEIN 7.4 gm/dL (6.0-8.0); TRIGLYCERIDES 108 mg/dl (<150)
[2022-10-25 09:07] LABS: CREATININE,URINE 70.8 mg/dL (Not Estab.)
== END | disposition home or self-care (01) ==
LOC: LAB 09:55
PROVIDERS: ATTEND Nurse Practitioner Family
DX: E11.621 Type 2 diabetes mellitus with foot ulcer (principal); E78.2 Mixed hyperlipidemia; I10 Essential (primary) hypertension

== ENCOUNTER → 2023-01-17 | Outpatient (CLI) | payer OTHER, MEDICAID ==
[2023-01-17 10:11] LABS: BASO # 0.1 10*3/uL (0.0-0.1); BASO % 0.8 % (0.0-1.0); EOS # 0.3 10*3/uL (0.0-0.4); EOS % 3.6 % (1.0-4.0); HEMATOCRIT 42.2 % (42.0-52.0); LYMPH # 2.1 10*3/uL (1.3-4.4); LYMPH % 22.2 % (27.0-41.0); MEAN CELL VOLUME 87.9 fl (80.0-94.0); MEAN CORPUSCULAR HGB 29.6 pg (27.0-31.0); MEAN CORPUSCULAR HGB CONC 33.6 g/dl (33.0-37.0); MEAN PLATELET VOLUME 10.2 fl (9.6-12.3); MONO # 0.7 10*3/uL (0.1-1.0); MONO % 7.5 % (3.0-9.0); NEUT # 6.1 10*3/uL (2.3-7.9); NEUT % 65.6 % (47.0-73.0); PLATELET COUNT AUTOMATED 254 10*3/uL (130-400); RED CELL DISTRI WIDTH 12.9 % (0-14.5); WHITE BLOOD COUNT 9.2 10*3/uL (4.8-10.8)
[2023-01-17 10:36] LABS: ALKALINE PHOSPHATASE 87 U/L (46-116); BUN 19 mg/dl (9-23); CHLORIDE 108 mmol/L (98-107); CHOLESTEROL 115 mg/dL (<200); LDL CHOLESTEROL 57 mg/dL (9-159); POTASSIUM 4.7 mmol/L (3.4-5.1); SGPT/ALT 33 U/L (10-49); TOTAL PROTEIN 6.9 gm/dL (6.0-8.0); TRIGLYCERIDES 101 mg/dl (<150)
== END | disposition home or self-care (01) ==
LOC: LAB 00:38
PROVIDERS: ATTEND Nurse Practitioner Family
DX: E11.621 Type 2 diabetes mellitus with foot ulcer (principal); I10 Essential (primary) hypertension; E78.2 Mixed hyperlipidemia

== ENCOUNTER → 2023-05-21 | Outpatient (CLI) | payer OTHER, MEDICAID ==
[2023-05-21 10:35] LABS: URINE CREATININE RANDOM 151.87 mg/dL
[2023-05-21 11:28] LABS: ALKALINE PHOSPHATASE 103 U/L (46-116); BUN 22 mg/dl (9-23); CHLORIDE 109 mmol/L (98-107); CHOLESTEROL 127 mg/dL (<200); LDL CHOLESTEROL 59 mg/dL (9-159); POTASSIUM 5.5 mmol/L (3.4-5.1); SGPT/ALT 54 U/L (10-49); TOTAL PROTEIN 6.8 gm/dL (6.0-8.0); TRIGLYCERIDES 142 mg/dl (<150)
== END | disposition home or self-care (01) ==
LOC: LAB 09:44
PROVIDERS: ATTEND Nurse Practitioner Family
DX: Z12.5 Encounter for screening for malignant neoplasm of prostate (principal); I10 Essential (primary) hypertension; E11.621 Type 2 diabetes mellitus with foot ulcer; E78.2 Mixed hyperlipidemia

== ENCOUNTER → 2023-08-15 | Outpatient (CLI) | payer OTHER, MEDICAID ==
[2023-08-15 11:23] LABS: URINE CREATININE RANDOM 73.07 mg/dL
[2023-08-15 11:34] LABS: ALKALINE PHOSPHATASE 110 U/L (46-116); BUN 14 mg/dl (9-23); CHLORIDE 108 mmol/L (98-107); CHOLESTEROL 127 mg/dL (<200); LDL CHOLESTEROL 68 mg/dL (9-159); POTASSIUM 4.8 mmol/L (3.4-5.1); SGPT/ALT 64 U/L (5-49); TOTAL PROTEIN 7.5 gm/dL (6.0-8.0); TRIGLYCERIDES 110 mg/dl (<150)
== END | disposition home or self-care (01) ==
LOC: LAB 10:20
PROVIDERS: ATTEND Nurse Practitioner Family
DX: E11.621 Type 2 diabetes mellitus with foot ulcer (principal); I10 Essential (primary) hypertension; E78.2 Mixed hyperlipidemia

== ENCOUNTER 2023-12-14 11:47 | Inpatient (IN) | payer OTHER, MEDICAID ==
[~2023-12-14] VITALS: Ht 172.7 cm; Wt 77.1 kg
[2023-12-14 11:55] VITALS: BP 134/75
[2023-12-14] MEDS ORDERED: Zestril,Prinivi40 MG PO (11:59)
[2023-12-14] MEDS ORDERED: METFORMIN HYD1000 MG PO (11:59)
[2023-12-14] MEDS ORDERED: AMLODIPINE BESYL5 MG PO (12:00)
[2023-12-14] MEDS ORDERED: JARDIANCE10 MG PO (12:00)
[2023-12-14] MEDS ORDERED: ATORVASTATIN CA40 M1 PO (12:00)
[2023-12-14 12:21] LABS: HEMATOCRIT 38.9 % (42.0-52.0); MANUAL DIFF REFLEX YES; MEAN CELL VOLUME 83.5 fl (80.0-94.0); MEAN CORPUSCULAR HGB 26.8 pg (27.0-31.0); MEAN CORPUSCULAR HGB CONC 32.1 g/dl (33.0-37.0); MEAN PLATELET VOLUME 10.3 fl (9.6-12.3); PLATELET COUNT AUTOMATED 250 10*3/uL (130-400); RED BLOOD COUNT 4.66 10*6/uL (4.50-5.90); RED CELL DISTRI WIDTH 14.1 % (0-14.5); WHITE BLOOD COUNT 16.7 10*3/uL (4.8-10.8)
[2023-12-14 12:40] LABS: BUN 46 mg/dl (9-23); CHLORIDE 94 mmol/L (98-107); POTASSIUM 4.6 mmol/L (3.4-5.1)
[2023-12-14 12:41] LABS: BASOPHILS 1 % (0-1); BURR CELLS MODERATE; OVALOCYTES FEW; PLATELET SUFFICIENCY NORMAL (NORMAL); TOTAL CELLS COUNTED 100 #CELLS
[2023-12-14] MEDS ORDERED: SODIUM CHLORIDE 0.9% 1,000 ML IV ONE ×2 (13:15→23:10)
[2023-12-14] MEDS ORDERED: Piperacillin Sodium/Tazobact 50 ML IV ONE (13:15)
[2023-12-14] MEDS ORDERED: INSULIN REGULAR, HUMAN 1 UNIT/0.01 ML IV ONE (13:50)
[2023-12-14 13:58] VITALS: BP 158/85
[2023-12-14 15:00] VITALS: BP 165/85
[2023-12-14] MEDS ORDERED: BISACODYL 5 MG TAB PO PRN (15:40)
[2023-12-14] MEDS ORDERED: Acetaminophen/Hydrocodone 5 MG/325 MG TABLET PO PRN (15:40)
[2023-12-14] MEDS ORDERED: MORPHINE Sulfate 2 MG/ML SYR IV PRN (15:40)
[2023-12-14] MEDS ORDERED: TEMAZEPAM 15 MG CAP PO PRN (15:40)
[2023-12-14 16:00] VITALS: BP 145/85
[2023-12-14] MEDS ORDERED: Vancomycin Hydrochloride 1,000 MG in SODIUM CHLORIDE 0.9% 250 ML IV SCH (16:00)
[2023-12-14] MEDS ORDERED: BARIUM SULFATE 2% 450 ML BOT PO SCH (16:00)
[2023-12-14] MEDS ORDERED: SODIUM CHLORIDE 0.9% 1,000 ML IV SCH (16:15)
[2023-12-14] MEDS ORDERED: DEXTROSE 10 % IN WATER 250 ML IV PRN (17:10)
[2023-12-14] MEDS ORDERED: ATORVASTATIN CALCIUM 40 MG TABLET PO SCH (18:00)
[2023-12-14] MEDS ORDERED: Cefepime Hydrochloride 2 GM in SODIUM CHLORIDE 0.9% 50 ML IV SCH ×2 (18:00→21:00)
[2023-12-14 20:00] VITALS: BP 108/53
[2023-12-14 21:51] LABS: CHLORIDE 101 mmol/L (98-107)
[2023-12-14 21:59] LABS: BUN 33 mg/dl (9-23)
[2023-12-14] MEDS ORDERED: NYSTATIN 15 GM BOT T SCH (22:00)
[2023-12-14] MEDS ORDERED: INSULIN LISPRO 1 UNIT/0.01 ML SQ SCH (22:00)
[2023-12-14 23:50] VITALS: BP 136/69
[2023-12-15] VITALS (8 sets, daily range): BP systolic 132–173; BP diastolic 70–90
[2023-12-15] MEDS ORDERED: ACETAMINOPHEN 325 MG TAB PO PRN (00:05)
[2023-12-15] MEDS ORDERED: ACETAMINOPHEN 650 MG SUPP R PRN (00:05)
[2023-12-15 00:10] LABS: BILIRUBIN Negative (Negative); BLOOD 2+ (Negative); CLARITY Cloudy (Clear); COLOR Yellow (Yellow); GLUCOSE 3+ (Negative); KETONE Trace (Negative); LEUKO ESTERASE Negative (Negative); NITRITE Negative (Negative); SPECIFIC GRAVITY 1.025 (1.001-1.030)
[2023-12-15] MEDS ORDERED: SODIUM CHLORIDE 0.9% 100 ML BAG IV ONE (00:10)
[2023-12-15] MEDS ORDERED: IOHEXOL 350 MG/ML 100 ML VIAL IV ONE (00:10)
[2023-12-15 00:11] LABS: URINE AMPHETAMINES Negative (1000ng/ml); URINE BARBITURATES Negative (200ng/ml); URINE BENZODIAZEPINES Negative (200ng/ml); URINE CANNABINOIDS (THC) Negative (50ng/ml); URINE COCAINE Negative (300ng/ml); URINE METHADONE Negative (300ng/ml); URINE OPIATES Negative (300ng/ml); URINE PHENCYCLIDINE Negative (25ng/ml)
[2023-12-15 00:17] LABS: BACTERIA 1+; RBC 16-20 rbc/hpf (0-2)
[2023-12-15] MEDS ORDERED: Pantoprazole Sodium 40 MG TAB PO SCH (06:00)
[2023-12-15 06:34] LABS: ACT PARTIAL THROMBO TIME 37.2 SECONDS (20.0-32.1); BASO % 0.3 % (0.0-1.0); EOS # 0.1 10*3/uL (0.0-0.4); EOS % 0.4 % (1.0-4.0); HEMATOCRIT 35.2 % (42.0-52.0); LYMPH # 0.9 10*3/uL (1.3-4.4); LYMPH % 6.8 % (27.0-41.0); MEAN CELL VOLUME 83.8 fl (80.0-94.0); MEAN CORPUSCULAR HGB 27.1 pg (27.0-31.0); MEAN CORPUSCULAR HGB CONC 32.4 g/dl (33.0-37.0); MEAN PLATELET VOLUME 10.7 fl (9.6-12.3); MONO # 1.3 10*3/uL (0.1-1.0); MONO % 9.7 % (3.0-9.0); NEUT # 11.2 10*3/uL (2.3-7.9); NEUT % 81.1 % (47.0-73.0); PLATELET COUNT AUTOMATED 261 10*3/uL (130-400); RED CELL DISTRI WIDTH 14.5 % (0-14.5); WHITE BLOOD COUNT 13.7 10*3/uL (4.8-10.8)
[2023-12-15 07:01] LABS: ALKALINE PHOSPHATASE 111 U/L (46-116); BUN 26 mg/dl (9-23); CHLORIDE 102 mmol/L (98-107); CHOLESTEROL 98 mg/dL (<200); FREE T4 1.06 ng/dl (0.89-1.76); POTASSIUM 4.2 mmol/L (3.4-5.1); SGPT/ALT 69 U/L (5-49); TOTAL PROTEIN 6.3 gm/dL (6.0-8.0); TRIGLYCERIDES 284 mg/dl (<150)
[2023-12-15 07:36] LABS: LDL CHOLESTEROL 36 mg/dL (9-159)
[2023-12-15] MEDS ORDERED: LISINOPRIL 40 MG TAB PO SCH (10:00)
[2023-12-15] MEDS ORDERED: amLODIPine besylate 5 MG TAB PO SCH (10:00)
[2023-12-15] MEDS ORDERED: Enoxaparin Sodium 40 MG/0.4 ML SYR SC SCH (10:00)
[2023-12-15] MEDS ORDERED: SODIUM CHLORIDE 0.9% 1,000 ML IV ONE ×2 (12:40→12:49)
[2023-12-15] MEDS ORDERED: Vancomycin Hydrochloride 1,000 MG VIAL T ONE (14:45)
[2023-12-15] MEDS ORDERED: PROPOFOL 200 MG/20 ML VIAL IV ONE (17:30)
[2023-12-15] MEDS ORDERED: Midazolam Hydrochloride 2 MG/2 ML VIAL IV ONE (17:30)
[2023-12-15] MEDS ORDERED: MUPIROCIN 15 GM TUBE T SCH (22:00)
[2023-12-16] VITALS: BP 144/76
[2023-12-16] MEDS ORDERED: FOAM BANDAGE 5X5 T ONE (01:49)
[2023-12-16] MEDS ORDERED: CHAIR CUSHION DEVICE ONE (01:49)
[2023-12-16 06:47] LABS: HEMATOCRIT 31.5 % (42.0-52.0); MEAN CELL VOLUME 82.9 fl (80.0-94.0); MEAN CORPUSCULAR HGB 27.4 pg (27.0-31.0); MEAN PLATELET VOLUME 10.8 fl (9.6-12.3); PLATELET COUNT AUTOMATED 261 10*3/uL (130-400); RED CELL DISTRI WIDTH 14.6 % (0-14.5); WHITE BLOOD COUNT 11.1 10*3/uL (4.8-10.8)
[2023-12-16 06:55] LABS: MANUAL DIFF REFLEX YES
[2023-12-16 07:07] LABS: ALKALINE PHOSPHATASE 120 U/L (46-116); BUN 17 mg/dl (9-23); CHLORIDE 104 mmol/L (98-107); POTASSIUM 3.5 mmol/L (3.4-5.1); SGPT/ALT 67 U/L (5-49); TOTAL PROTEIN 5.6 gm/dL (6.0-8.0)
[2023-12-16 07:47] LABS: PLATELET SUFFICIENCY NORMAL (NORMAL); POLYCHROMASIA SLIGHT; TOTAL CELLS COUNTED 100 #CELLS
[2023-12-16 08:00] VITALS: BP 153/82
[2023-12-16] MEDS ORDERED: FOAM BANDAGE 6X6 T ONE (11:04)
[2023-12-16 12:00] VITALS: BP 134/63
[2023-12-16 13:06] LABS: ACID FAST SPEC PROCESSING Tissue Grinding (.)
[2023-12-16 13:06] LABS: ACID FAST SPEC PROCESSING Tissue Grinding (.)
[2023-12-16 16:00] VITALS: BP 141/82
[2023-12-16 20:00] VITALS: BP 154/77
[2023-12-17] VITALS (9 sets, daily range): BP systolic 151–172; BP diastolic 80–93
[2023-12-17 06:40] LABS: ALKALINE PHOSPHATASE 125 U/L (46-116); BASO # 0.1 10*3/uL (0.0-0.1); BASO % 0.4 % (0.0-1.0); BUN 17 mg/dl (9-23); CHLORIDE 104 mmol/L (98-107); EOS # 0.4 10*3/uL (0.0-0.4); EOS % 3.2 % (1.0-4.0); HEMATOCRIT 32.5 % (42.0-52.0); LYMPH # 1.4 10*3/uL (1.3-4.4); MEAN CELL VOLUME 81.7 fl (80.0-94.0); MEAN CORPUSCULAR HGB 26.9 pg (27.0-31.0); MEAN CORPUSCULAR HGB CONC 32.9 g/dl (33.0-37.0); MEAN PLATELET VOLUME 10.7 fl (9.6-12.3); MONO # 1.1 10*3/uL (0.1-1.0); MONO % 8.8 % (3.0-9.0); NEUT # 9.4 10*3/uL (2.3-7.9); NEUT % 75.2 % (47.0-73.0); POTASSIUM 3.4 mmol/L (3.4-5.1); RED BLOOD COUNT 3.98 10*6/uL (4.50-5.90); RED CELL DISTRI WIDTH 14.6 % (0-14.5); SGPT/ALT 58 U/L (5-49); TOTAL PROTEIN 5.9 gm/dL (6.0-8.0); WHITE BLOOD COUNT 12.5 10*3/uL (4.8-10.8)
[2023-12-17 06:44] LABS: PLATELET COUNT AUTOMATED 342 10*3/uL (130-400)
[2023-12-17] MEDS ORDERED: SODIUM CHLORIDE 0.9% 1,000 ML IV ONE (11:32)
[2023-12-17] MEDS ORDERED: Midazolam Hydrochloride 2 MG/2 ML VIAL IV ONE (18:04)
[2023-12-17] MEDS ORDERED: PROPOFOL 200 MG/20 ML VIAL IV ONE (18:04)
[2023-12-17] MEDS ORDERED: Lidocaine Hydrochloride 2% 10 ML AMP IM ONE (18:04)
[2023-12-17] MEDS ORDERED: Ketamine Hydrochloride 50 MG/5 ML SYRINGE IV ONE (18:04)
[2023-12-18] VITALS: BP 154/78
[2023-12-18 06:40] LABS: HEMATOCRIT 31.2 % (42.0-52.0); MEAN CORPUSCULAR HGB 26.6 pg (27.0-31.0); MEAN CORPUSCULAR HGB CONC 32.1 g/dl (33.0-37.0); MEAN PLATELET VOLUME 10.4 fl (9.6-12.3); PLATELET COUNT AUTOMATED 357 10*3/uL (130-400); RED BLOOD COUNT 3.76 10*6/uL (4.50-5.90); RED CELL DISTRI WIDTH 14.7 % (0-14.5); WHITE BLOOD COUNT 11.5 10*3/uL (4.8-10.8)
[2023-12-18 06:42] LABS: MANUAL DIFF REFLEX YES
[2023-12-18 06:52] LABS: ALKALINE PHOSPHATASE 104 U/L (46-116); CHLORIDE 105 mmol/L (98-107); POTASSIUM 3.4 mmol/L (3.4-5.1); SGPT/ALT 44 U/L (5-49); TOTAL PROTEIN 5.6 gm/dL (6.0-8.0)
[2023-12-18 07:00] LABS: BUN 30 mg/dl (9-23)
[2023-12-18 07:34] LABS: ATYPICAL LYMPHS 1 % (0-0); PLASMA CELL 1 % (0-0); POLYCHROMASIA SLIGHT; TOTAL CELLS COUNTED 100 #CELLS; TOXIC GRANULATION SLIGHT
[2023-12-18 07:35] LABS: BURR CELLS MODERATE; DOHLE BODIES FEW; OVALOCYTES FEW; PLATELET SUFFICIENCY NORMAL (NORMAL); ROULEAUX SLIGHT; SCHISTOCYTES FEW; TARGET CELLS FEW
[2023-12-18 08:00] VITALS: BP 185/94
[2023-12-18] MEDS ORDERED: SODIUM CHLORIDE 0.9% 1,000 ML IV ONE (08:00)
[2023-12-18] MEDS ORDERED: FOAM BANDAGE 6X6 T ONE (10:02)
[2023-12-18 12:00] VITALS: BP 167/86
[2023-12-18 16:00] VITALS: BP 159/85
[2023-12-18 20:00] VITALS: BP 159/65
[2023-12-19] VITALS (8 sets, daily range): BP systolic 149–166; BP diastolic 62–87
[2023-12-19 06:14] LABS: HEMATOCRIT 30.4 % (42.0-52.0); MEAN CELL VOLUME 82.8 fl (80.0-94.0); MEAN CORPUSCULAR HGB 26.7 pg (27.0-31.0); MEAN CORPUSCULAR HGB CONC 32.2 g/dl (33.0-37.0); PLATELET COUNT AUTOMATED 383 10*3/uL (130-400); RED BLOOD COUNT 3.67 10*6/uL (4.50-5.90); RED CELL DISTRI WIDTH 14.5 % (0-14.5); WHITE BLOOD COUNT 12.2 10*3/uL (4.8-10.8)
[2023-12-19 06:27] LABS: MANUAL DIFF REFLEX YES
[2023-12-19 06:29] LABS: POTASSIUM 3.3 mmol/L (3.4-5.1); TOTAL PROTEIN 5.7 gm/dL (6.0-8.0)
[2023-12-19 07:39] LABS: TOTAL CELLS COUNTED 100 #CELLS
[2023-12-19 07:40] LABS: BURR CELLS FEW; OVALOCYTES FEW; PLATELET SUFFICIENCY NORMAL (NORMAL); POLYCHROMASIA SLIGHT; ROULEAUX SLIGHT
[2023-12-19] MEDS ORDERED: SODIUM CHLORIDE 0.9% 1,000 ML IV ONE (11:09)
[2023-12-19] MEDS ORDERED: SODIUM BICARBONATE 4.2% 5 ML VIAL ONE (11:09)
[2023-12-19] MEDS ORDERED: VANCOMYCIN IV ONE (12:32)
[2023-12-19] MEDS ORDERED: Vancomycin Hydrochloride 1,000 MG in SODIUM CHLORIDE 0.9% 250 ML IV SCH (16:15)
[2023-12-19] MEDS ORDERED: PROPOFOL 200 MG/20 ML VIAL IV ONE (17:46)
[2023-12-20] VITALS: BP 141/77
[2023-12-20 06:16] LABS: POTASSIUM 3.8 mmol/L (3.4-5.1)
[2023-12-20 06:18] LABS: HEMATOCRIT 32.7 % (42.0-52.0); MEAN CELL VOLUME 84.3 fl (80.0-94.0); MEAN CORPUSCULAR HGB 26.3 pg (27.0-31.0); MEAN CORPUSCULAR HGB CONC 31.2 g/dl (33.0-37.0); PLATELET COUNT AUTOMATED 371 10*3/uL (130-400); RED BLOOD COUNT 3.88 10*6/uL (4.50-5.90); RED CELL DISTRI WIDTH 14.6 % (0-14.5); WHITE BLOOD COUNT 13.3 10*3/uL (4.8-10.8)
[2023-12-20 06:21] LABS: MANUAL DIFF REFLEX YES
[2023-12-20 06:47] LABS: PLATELET SUFFICIENCY NORMAL (NORMAL); TOTAL CELLS COUNTED 100 #CELLS
[2023-12-20 06:48] LABS: BURR CELLS FEW; POLYCHROMASIA SLIGHT; ROULEAUX SLIGHT
[2023-12-20 08:00] VITALS: BP 162/88
[2023-12-20 09:07] LABS: ACID FAST SPEC PROCESSING Tissue Grinding (.)
[2023-12-20 09:07] LABS: ACID FAST SPEC PROCESSING Tissue Grinding (.)
[2023-12-20 12:00] VITALS: BP 141/77
[2023-12-20 16:00] VITALS: BP 142/74
[2023-12-20] MEDS ORDERED: CEFEPIME1 GM/50 ML IV (17:12)
[2023-12-20 20:00] VITALS: BP 151/74
[2023-12-21] VITALS: BP 146/73
[2023-12-21 06:06] LABS: HEMATOCRIT 31.7 % (42.0-52.0); MEAN CELL VOLUME 84.3 fl (80.0-94.0); MEAN CORPUSCULAR HGB 26.6 pg (27.0-31.0); MEAN CORPUSCULAR HGB CONC 31.5 g/dl (33.0-37.0); MEAN PLATELET VOLUME 9.7 fl (9.6-12.3); PLATELET COUNT AUTOMATED 372 10*3/uL (130-400); RED BLOOD COUNT 3.76 10*6/uL (4.50-5.90); RED CELL DISTRI WIDTH 14.6 % (0-14.5); WHITE BLOOD COUNT 14.1 10*3/uL (4.8-10.8)
[2023-12-21 06:13] LABS: MANUAL DIFF REFLEX YES
[2023-12-21 07:23] LABS: TOTAL CELLS COUNTED 100 #CELLS
[2023-12-21 07:24] LABS: ACANTHOCYTES FEW; BURR CELLS MODERATE; PLATELET SUFFICIENCY NORMAL (NORMAL); POLYCHROMASIA SLIGHT; SCHISTOCYTES FEW
[2023-12-21 07:25] LABS: OVALOCYTES FEW
[2023-12-21 08:00] VITALS: BP 157/72
[2023-12-21 12:00] VITALS: BP 153/77
[2023-12-21] MEDS ORDERED: SODIUM BICARBONATE 150 MEQ in DEXTROSE 5% 1,000 ML IV SCH (14:45)
[2023-12-21 15:47] LABS: BILIRUBIN 1+ (Negative); BLOOD 3+ (Negative); CLARITY Turbid (Clear); COLOR Dark Yellow (Yellow); GLUCOSE 1+ (Negative); KETONE Trace (Negative); LEUKO ESTERASE Trace (Negative); NITRITE Negative (Negative); SPECIFIC GRAVITY >= 1.030 (1.001-1.030); UROBILINOGEN 0.2 E.U./dl (0.0-1.0)
[2023-12-21 16:00] VITALS: BP 156/74
[2023-12-21 16:02] LABS: BACTERIA 2+
[2023-12-21 16:17] LABS: URINE CREATININE RANDOM 188.22 mg/dL
[2023-12-21 20:00] VITALS: BP 158/85
[2023-12-22] VITALS: BP 160/82
[2023-12-22 06:38] LABS: MANUAL DIFF REFLEX YES
[2023-12-22 06:41] LABS: BASO % 0.3 % (0.0-1.0); EOS # 0.3 10*3/uL (0.0-0.4); EOS % 1.7 % (1.0-4.0); LYMPH % 6.2 % (27.0-41.0); MEAN CELL VOLUME 81.5 fl (80.0-94.0); MEAN CORPUSCULAR HGB 26.9 pg (27.0-31.0); MEAN PLATELET VOLUME 9.9 fl (9.6-12.3); MONO # 0.9 10*3/uL (0.1-1.0); MONO % 5.8 % (3.0-9.0); NEUT # 12.9 10*3/uL (2.3-7.9); NEUT % 82.8 % (47.0-73.0); PLATELET COUNT AUTOMATED 366 10*3/uL (130-400); RED BLOOD COUNT 3.68 10*6/uL (4.50-5.90); RED CELL DISTRI WIDTH 14.3 % (0-14.5); WHITE BLOOD COUNT 15.6 10*3/uL (4.8-10.8)
[2023-12-22 08:00] VITALS: BP 184/82
[2023-12-22 08:18] LABS: TOTAL CELLS COUNTED 100 #CELLS
[2023-12-22 08:19] LABS: PLATELET SUFFICIENCY NORMAL (NORMAL)
[2023-12-22] MEDS ORDERED: Enoxaparin Sodium 30 MG/0.3 ML SYR SC SCH (10:00)
[2023-12-22] MEDS ORDERED: Cefepime Hydrochloride 2 GM in SODIUM CHLORIDE 0.9% 50 ML IV SCH (11:00)
[2023-12-22] MEDS ORDERED: CEFEPIME1 GM/50 ML IV (11:04)
[2023-12-22 12:00] VITALS: BP 153/75
[2023-12-22] MEDS ORDERED: FOAM BANDAGE 6X6 T ONE (15:02)
[2023-12-22 16:00] VITALS: BP 150/72
[2023-12-22 20:00] VITALS: BP 150/74
[2023-12-23] VITALS: BP 140/76
[2023-12-23 07:07] LABS: HEPATITIS B SURFACE AG Negative (Negative)
[2023-12-23 07:53] LABS: HEMATOCRIT 27.9 % (42.0-52.0); MEAN CELL VOLUME 80.6 fl (80.0-94.0); MEAN CORPUSCULAR HGB 26.6 pg (27.0-31.0); MEAN PLATELET VOLUME 9.4 fl (9.6-12.3); PLATELET COUNT AUTOMATED 371 10*3/uL (130-400); RED BLOOD COUNT 3.46 10*6/uL (4.50-5.90); RED CELL DISTRI WIDTH 14.5 % (0-14.5); WHITE BLOOD COUNT 15.1 10*3/uL (4.8-10.8)
[2023-12-23 07:57] LABS: MANUAL DIFF REFLEX YES
[2023-12-23 08:00] VITALS: BP 160/78
[2023-12-23 08:18] LABS: POTASSIUM 3.7 mmol/L (3.4-5.1)
[2023-12-23 08:30] LABS: ATYPICAL LYMPHS 1 % (0-0); BASOPHILS 2 % (0-1); BURR CELLS FEW; MICROCYTOSIS SLIGHT; TOTAL CELLS COUNTED 100 #CELLS
[2023-12-23 08:31] LABS: PLATELET SUFFICIENCY NORMAL (NORMAL)
[2023-12-23] MEDS ORDERED: amLODIPine besylate 10 MG TAB PO SCH (10:00)
[2023-12-23] MEDS ORDERED: INSULIN LISPRO 1 UNIT/0.01 ML SQ SCH ×2 (11:55→16:30)
[2023-12-23 12:00] VITALS: BP 179/83
[2023-12-23 14:10] VITALS: BP 140/73
[2023-12-23 20:00] VITALS: BP 103/67; BP 142/72
[2023-12-24] VITALS: BP 142/74
[2023-12-24 06:30] LABS: POTASSIUM 3.7 mmol/L (3.4-5.1)
[2023-12-24 06:44] LABS: HEMATOCRIT 27.6 % (42.0-52.0); MEAN CELL VOLUME 80.5 fl (80.0-94.0); MEAN CORPUSCULAR HGB 27.7 pg (27.0-31.0); MEAN CORPUSCULAR HGB CONC 34.4 g/dl (33.0-37.0); MEAN PLATELET VOLUME 10.2 fl (9.6-12.3); PLATELET COUNT AUTOMATED 394 10*3/uL (130-400); RED BLOOD COUNT 3.43 10*6/uL (4.50-5.90); RED CELL DISTRI WIDTH 14.4 % (0-14.5)
[2023-12-24 06:46] LABS: MANUAL DIFF REFLEX YES
[2023-12-24 07:25] LABS: BASOPHILS 1 % (0-1); BURR CELLS FEW; PLATELET SUFFICIENCY NORMAL (NORMAL); POLYCHROMASIA SLIGHT; ROULEAUX SLIGHT; SCHISTOCYTES FEW; TOTAL CELLS COUNTED 100 #CELLS
[2023-12-24 08:00] VITALS: BP 147/75
[2023-12-24] MEDS ORDERED: Cefepime Hydrochloride 2 GM in SODIUM CHLORIDE 0.9% 50 ML IV SCH (10:00)
[2023-12-24 12:00] VITALS: BP 165/72
[2023-12-24 16:00] VITALS: BP 150/80
[2023-12-24] MEDS ORDERED: SODIUM BICARBONATE 650 MG TAB PO SCH (18:00)
[2023-12-24 20:00] VITALS: BP 158/82
[2023-12-25] VITALS: BP 165/78
[2023-12-25] MEDS ORDERED: FOAM BANDAGE 6X6 T ONE (01:42)
[2023-12-25] MEDS ORDERED: MUPIROCIN 15 GM TUBE T SCH (06:00)
[2023-12-25 06:28] LABS: BASO # 0.1 10*3/uL (0.0-0.1); BASO % 0.3 % (0.0-1.0); EOS # 0.3 10*3/uL (0.0-0.4); EOS % 1.6 % (1.0-4.0); HEMATOCRIT 27.3 % (42.0-52.0); LYMPH # 1.2 10*3/uL (1.3-4.4); LYMPH % 7.3 % (27.0-41.0); MEAN CELL VOLUME 80.8 fl (80.0-94.0); MEAN CORPUSCULAR HGB 26.6 pg (27.0-31.0); MEAN PLATELET VOLUME 9.8 fl (9.6-12.3); MONO # 0.9 10*3/uL (0.1-1.0); MONO % 5.7 % (3.0-9.0); NEUT # 13.9 10*3/uL (2.3-7.9); NEUT % 83.8 % (47.0-73.0); PLATELET COUNT AUTOMATED 418 10*3/uL (130-400); RED BLOOD COUNT 3.38 10*6/uL (4.50-5.90); RED CELL DISTRI WIDTH 14.3 % (0-14.5); WHITE BLOOD COUNT 16.5 10*3/uL (4.8-10.8)
[2023-12-25 07:18] LABS: POTASSIUM 3.9 mmol/L (3.4-5.1)
[2023-12-25 07:49] VITALS: BP 149/80
[2023-12-25] MEDS ORDERED: NYSTATIN 15 GM BOT T SCH (10:00)
[2023-12-25] MEDS ORDERED: Ondansetron Hydrochloride 4 MG/2 ML VIAL IV ONE (11:20)
[2023-12-25 12:00] VITALS: BP 155/76
[2023-12-25 13:30] LABS: BASO # 0.1 10*3/uL (0.0-0.1); BASO % 0.4 % (0.0-1.0); EOS # 0.3 10*3/uL (0.0-0.4); EOS % 1.7 % (1.0-4.0); HEMATOCRIT 28.4 % (42.0-52.0); LYMPH # 1.2 10*3/uL (1.3-4.4); LYMPH % 7.4 % (27.0-41.0); MEAN CELL VOLUME 80.9 fl (80.0-94.0); MEAN CORPUSCULAR HGB 26.5 pg (27.0-31.0); MEAN CORPUSCULAR HGB CONC 32.7 g/dl (33.0-37.0); MEAN PLATELET VOLUME 9.6 fl (9.6-12.3); MONO # 0.8 10*3/uL (0.1-1.0); MONO % 5.1 % (3.0-9.0); NEUT # 13.3 10*3/uL (2.3-7.9); NEUT % 84.2 % (47.0-73.0); PLATELET COUNT AUTOMATED 413 10*3/uL (130-400); RED BLOOD COUNT 3.51 10*6/uL (4.50-5.90); RED CELL DISTRI WIDTH 14.4 % (0-14.5); WHITE BLOOD COUNT 15.8 10*3/uL (4.8-10.8)
[2023-12-25 14:03] LABS: POTASSIUM 4.4 mmol/L (3.4-5.1); TOTAL PROTEIN 5.8 gm/dL (6.0-8.0)
[2023-12-25 16:00] VITALS: BP 131/71
[2023-12-25 20:00] VITALS: BP 143/78
[2023-12-26] VITALS: BP 125/74
[2023-12-26 06:39] LABS: BILIRUBIN Negative (Negative); BLOOD 3+ (Negative); CLARITY Turbid (Clear); COLOR Yellow (Yellow); GLUCOSE Trace (Negative); KETONE Trace (Negative); LEUKO ESTERASE 1+ (Negative); NITRITE Negative (Negative); UROBILINOGEN 0.2 E.U./dl (0.0-1.0)
[2023-12-26 06:40] LABS: BASO # 0.1 10*3/uL (0.0-0.1); BASO % 0.4 % (0.0-1.0); EOS # 0.3 10*3/uL (0.0-0.4); EOS % 2.2 % (1.0-4.0); HEMATOCRIT 28.5 % (42.0-52.0); LYMPH # 1.3 10*3/uL (1.3-4.4); LYMPH % 9.4 % (27.0-41.0); MEAN CELL VOLUME 82.4 fl (80.0-94.0); MEAN CORPUSCULAR HGB 26.3 pg (27.0-31.0); MEAN CORPUSCULAR HGB CONC 31.9 g/dl (33.0-37.0); MEAN PLATELET VOLUME 9.7 fl (9.6-12.3); MONO # 0.9 10*3/uL (0.1-1.0); MONO % 6.5 % (3.0-9.0); NEUT # 10.8 10*3/uL (2.3-7.9); NEUT % 80.2 % (47.0-73.0); PLATELET COUNT AUTOMATED 425 10*3/uL (130-400); RED BLOOD COUNT 3.46 10*6/uL (4.50-5.90); RED CELL DISTRI WIDTH 14.2 % (0-14.5); WHITE BLOOD COUNT 13.5 10*3/uL (4.8-10.8)
[2023-12-26 06:57] LABS: POTASSIUM 4.2 mmol/L (3.4-5.1)
[2023-12-26 08:00] VITALS: BP 142/67
[2023-12-26 08:22] LABS: BACTERIA 4+; RBC TNTC rbc/hpf (0-2); WBC 41-50 wbc/hpf (0-5)
[2023-12-26] MEDS ORDERED: HEPARIN SODIUM 5,000 UNIT/ML VIAL SC SCH (10:00)
[2023-12-26 12:00] VITALS: BP 146/73
[2023-12-26 16:00] VITALS: BP 120/100
[2023-12-26 16:20] LABS: BILIRUBIN Negative (Negative); BLOOD 3+ (Negative); CLARITY Cloudy (Clear); COLOR Yellow (Yellow); GLUCOSE Negative (Negative); KETONE Trace (Negative); LEUKO ESTERASE Negative (Negative); NITRITE Negative (Negative); PH 5.5 (4.5-8.0); UROBILINOGEN 0.2 E.U./dl (0.0-1.0)
[2023-12-26 16:30] LABS: BACTERIA 4+; RBC TNTC rbc/hpf (0-2); WBC 21-30 wbc/hpf (0-5)
[2023-12-26 16:31] LABS: EPITHELIAL CELLS 0-2
[2023-12-26 20:00] VITALS: BP 146/71
[2023-12-27] VITALS: BP 134/72
[2023-12-27 06:16] LABS: POTASSIUM 4.4 mmol/L (3.4-5.1)
[2023-12-27 06:35] LABS: BASO # 0.1 10*3/uL (0.0-0.1); BASO % 0.5 % (0.0-1.0); EOS # 0.3 10*3/uL (0.0-0.4); EOS % 2.3 % (1.0-4.0); HEMATOCRIT 27.6 % (42.0-52.0); LYMPH # 1.4 10*3/uL (1.3-4.4); LYMPH % 11.3 % (27.0-41.0); MEAN CELL VOLUME 81.7 fl (80.0-94.0); MEAN CORPUSCULAR HGB 26.3 pg (27.0-31.0); MEAN CORPUSCULAR HGB CONC 32.2 g/dl (33.0-37.0); MONO # 0.8 10*3/uL (0.1-1.0); MONO % 6.3 % (3.0-9.0); NEUT # 9.9 10*3/uL (2.3-7.9); NEUT % 78.6 % (47.0-73.0); PLATELET COUNT AUTOMATED 445 10*3/uL (130-400); RED BLOOD COUNT 3.38 10*6/uL (4.50-5.90); RED CELL DISTRI WIDTH 14.3 % (0-14.5); WHITE BLOOD COUNT 12.5 10*3/uL (4.8-10.8)
[2023-12-27 08:00] VITALS: BP 142/73
[2023-12-27] MEDS ORDERED: METOPROLOL SUCCINATE XR 25 MG TAB PO SCH (10:00)
[2023-12-27 12:00] VITALS: BP 145/66
[2023-12-27] MEDS ORDERED: Acetaminophen/Hydrocodone 5 MG/325 MG TABLET PO PRN (12:05)
[2023-12-27 16:00] VITALS: BP 142/62
[2023-12-27 20:00] VITALS: BP 130/68
[2023-12-28] VITALS: BP 127/68
[2023-12-28 07:18] LABS: BASO # 0.1 10*3/uL (0.0-0.1); BASO % 0.5 % (0.0-1.0); EOS # 0.3 10*3/uL (0.0-0.4); EOS % 2.1 % (1.0-4.0); HEMATOCRIT 28.5 % (42.0-52.0); LYMPH # 1.2 10*3/uL (1.3-4.4); LYMPH % 9.8 % (27.0-41.0); MEAN CELL VOLUME 81.7 fl (80.0-94.0); MEAN CORPUSCULAR HGB 26.6 pg (27.0-31.0); MEAN CORPUSCULAR HGB CONC 32.6 g/dl (33.0-37.0); MEAN PLATELET VOLUME 9.8 fl (9.6-12.3); MONO # 0.8 10*3/uL (0.1-1.0); MONO % 6.4 % (3.0-9.0); NEUT # 9.8 10*3/uL (2.3-7.9); NEUT % 80.4 % (47.0-73.0); PLATELET COUNT AUTOMATED 443 10*3/uL (130-400); RED BLOOD COUNT 3.49 10*6/uL (4.50-5.90); RED CELL DISTRI WIDTH 14.4 % (0-14.5); WHITE BLOOD COUNT 12.2 10*3/uL (4.8-10.8)
[2023-12-28 07:37] LABS: POTASSIUM 4.7 mmol/L (3.4-5.1)
[2023-12-28 08:00] VITALS: BP 144/67
[2023-12-28 12:00] VITALS: BP 141/75
[2023-12-28] MEDS ORDERED: FOAM BANDAGE 1 EACH BANDAGE T ONE (13:59)
[2023-12-28] MEDS ORDERED: FOAM BANDAGE 6X6 T ONE (13:59)
[2023-12-28 16:00] VITALS: BP 133/62
[2023-12-28 20:00] VITALS: BP 135/76
[2023-12-29] VITALS: BP 120/66
[2023-12-29 06:41] LABS: BASO # 0.1 10*3/uL (0.0-0.1); BASO % 0.5 % (0.0-1.0); EOS # 0.3 10*3/uL (0.0-0.4); EOS % 2.8 % (1.0-4.0); HEMATOCRIT 27.7 % (42.0-52.0); LYMPH # 1.3 10*3/uL (1.3-4.4); LYMPH % 11.6 % (27.0-41.0); MEAN CELL VOLUME 82.2 fl (80.0-94.0); MEAN CORPUSCULAR HGB 26.7 pg (27.0-31.0); MEAN CORPUSCULAR HGB CONC 32.5 g/dl (33.0-37.0); MONO # 0.6 10*3/uL (0.1-1.0); MONO % 5.7 % (3.0-9.0); NEUT # 8.8 10*3/uL (2.3-7.9); NEUT % 78.9 % (47.0-73.0); PLATELET COUNT AUTOMATED 403 10*3/uL (130-400); RED BLOOD COUNT 3.37 10*6/uL (4.50-5.90); RED CELL DISTRI WIDTH 14.2 % (0-14.5); WHITE BLOOD COUNT 11.2 10*3/uL (4.8-10.8)
[2023-12-29 07:00] LABS: POTASSIUM 4.8 mmol/L (3.4-5.1)
[2023-12-29 08:00] VITALS: BP 138/62
[2023-12-29 12:00] VITALS: BP 123/63
[2023-12-29 16:00] VITALS: BP 137/75
[2023-12-29 20:00] VITALS: BP 127/69
[2023-12-30] VITALS: BP 124/66
[2023-12-30 07:34] LABS: POTASSIUM 4.8 mmol/L (3.4-5.1)
[2023-12-30 07:56] LABS: ACT PARTIAL THROMBO TIME 39.6 SECONDS (20.0-32.1)
[2023-12-30 08:00] VITALS: BP 113/87
[2023-12-30] MEDS ORDERED: Ertapenem Sodium 1 GM in SODIUM CHLORIDE 0.9% 50 ML IV SCH (10:00)
[2023-12-30 12:00] VITALS: BP 132/68
[2023-12-30] MEDS ORDERED: Lidocaine Hydrochloride 5 ML AMP ONE (12:43)
[2023-12-30] MEDS ORDERED: SODIUM BICARBONATE 4.2% 5 ML VIAL ONE (12:44)
[2023-12-30 16:00] VITALS: BP 127/68
[2023-12-30 20:00] VITALS: BP 129/60
[2023-12-31] VITALS (12 sets, daily range): BP systolic 118–145; BP diastolic 63–87
[2023-12-31 06:41] LABS: POTASSIUM 4.4 mmol/L (3.4-5.1)
[2023-12-31 06:54] LABS: BASO # 0.1 10*3/uL (0.0-0.1); EOS # 0.2 10*3/uL (0.0-0.4); EOS % 2.5 % (1.0-4.0); HEMATOCRIT 30.8 % (42.0-52.0); LYMPH # 1.4 10*3/uL (1.3-4.4); LYMPH % 14.9 % (27.0-41.0); MEAN CELL VOLUME 83.5 fl (80.0-94.0); MEAN CORPUSCULAR HGB 26.3 pg (27.0-31.0); MEAN CORPUSCULAR HGB CONC 31.5 g/dl (33.0-37.0); MEAN PLATELET VOLUME 9.9 fl (9.6-12.3); MONO # 0.6 10*3/uL (0.1-1.0); MONO % 6.6 % (3.0-9.0); NEUT # 6.9 10*3/uL (2.3-7.9); NEUT % 74.5 % (47.0-73.0); PLATELET COUNT AUTOMATED 475 10*3/uL (130-400); RED BLOOD COUNT 3.69 10*6/uL (4.50-5.90); RED CELL DISTRI WIDTH 14.1 % (0-14.5); WHITE BLOOD COUNT 9.2 10*3/uL (4.8-10.8)
[2023-12-31] MEDS ORDERED: Sevelamer Hydrochloride 800 MG TAB PO SCH (12:00)
[2023-12-31] MEDS ORDERED: SODIUM BICARBONATE 50 MEQ/50 ML VIAL IV ONE (14:03)
[2023-12-31] MEDS ORDERED: HEPARIN SODIUM 500 UNIT/5 ML SYR IV ONE (14:03)
[2023-12-31] MEDS ORDERED: IOHEXOL 300 MG/ML 100 ML VIAL ONE (14:06)
[2023-12-31] MEDS ORDERED: Lidocaine Hydrochloride 30 ML VIAL ONE (14:07)
[2023-12-31] MEDS ORDERED: SODIUM CHLORIDE 0.9% 100 ML IV ONE (14:07)
[2023-12-31] MEDS ORDERED: Midazolam Hydrochloride 2 MG/2 ML VIAL ONE (14:09)
[2023-12-31] MEDS ORDERED: SODIUM BICARBONATE 4.2% 5 ML VIAL ONE (14:29)
[2024-01-01] VITALS: BP 111/66
[2024-01-01 07:23] LABS: BASO % 0.5 % (0.0-1.0); EOS # 0.2 10*3/uL (0.0-0.4); EOS % 2.8 % (1.0-4.0); HEMATOCRIT 27.6 % (42.0-52.0); LYMPH # 1.1 10*3/uL (1.3-4.4); LYMPH % 12.6 % (27.0-41.0); MEAN CELL VOLUME 82.6 fl (80.0-94.0); MEAN CORPUSCULAR HGB 26.6 pg (27.0-31.0); MEAN CORPUSCULAR HGB CONC 32.2 g/dl (33.0-37.0); MEAN PLATELET VOLUME 9.3 fl (9.6-12.3); MONO # 0.7 10*3/uL (0.1-1.0); MONO % 7.5 % (3.0-9.0); NEUT # 6.6 10*3/uL (2.3-7.9); NEUT % 76.3 % (47.0-73.0); PLATELET COUNT AUTOMATED 357 10*3/uL (130-400); RED BLOOD COUNT 3.34 10*6/uL (4.50-5.90); RED CELL DISTRI WIDTH 14.3 % (0-14.5); WHITE BLOOD COUNT 8.6 10*3/uL (4.8-10.8)
[2024-01-01 07:41] LABS: POTASSIUM 4.4 mmol/L (3.4-5.1)
[2024-01-01 08:00] VITALS: BP 141/74
[2024-01-01 12:00] VITALS: BP 133/72
[2024-01-01] MEDS ORDERED: Ertapenem Sodium 1 GM in SODIUM CHLORIDE 0.9% 50 ML IV SCH (12:00)
[2024-01-01] MEDS ORDERED: Cefepime Hydrochloride 2 GM in SODIUM CHLORIDE 0.9% 50 ML IV SCH (12:00)
[2024-01-01 16:00] VITALS: BP 108/73; BP 129/71
[2024-01-01 20:00] VITALS: BP 129/70
[2024-01-02] VITALS: BP 118/62
[2024-01-02] MEDS ORDERED: LEPTOSPERMUM HONEY 0.5 OZ TUBE T ONE (05:04)
[2024-01-02 06:28] LABS: POTASSIUM 4.1 mmol/L (3.4-5.1)
[2024-01-02 06:40] LABS: BASO # 0.1 10*3/uL (0.0-0.1); BASO % 0.6 % (0.0-1.0); EOS # 0.3 10*3/uL (0.0-0.4); EOS % 3.8 % (1.0-4.0); LYMPH # 1.7 10*3/uL (1.3-4.4); MEAN CELL VOLUME 83.1 fl (80.0-94.0); MEAN CORPUSCULAR HGB 26.7 pg (27.0-31.0); MEAN CORPUSCULAR HGB CONC 32.1 g/dl (33.0-37.0); MEAN PLATELET VOLUME 9.7 fl (9.6-12.3); MONO # 0.8 10*3/uL (0.1-1.0); MONO % 9.5 % (3.0-9.0); NEUT # 5.5 10*3/uL (2.3-7.9); NEUT % 65.7 % (47.0-73.0); PLATELET COUNT AUTOMATED 360 10*3/uL (130-400); RED BLOOD COUNT 3.37 10*6/uL (4.50-5.90); RED CELL DISTRI WIDTH 14.4 % (0-14.5); WHITE BLOOD COUNT 8.4 10*3/uL (4.8-10.8)
[2024-01-02 08:00] VITALS: BP 124/82
[2024-01-02 12:00] VITALS: BP 120/80
[2024-01-02] MEDS ORDERED: ERTAPENEM1 GM IV (12:31)
[2024-01-02 16:00] VITALS: BP 128/65
[2024-01-02 20:00] VITALS: BP 120/62
[2024-01-03] VITALS: BP 125/68
[2024-01-03] MEDS ORDERED: FOAM BANDAGE 1 EACH BANDAGE T ONE (02:11)
[2024-01-03] MEDS ORDERED: FOAM BANDAGE 4X4 T ONE (02:12)
[2024-01-03 06:10] LABS: BASO # 0.1 10*3/uL (0.0-0.1); BASO % 0.5 % (0.0-1.0); EOS # 0.5 10*3/uL (0.0-0.4); EOS % 4.7 % (1.0-4.0); HEMATOCRIT 29.2 % (42.0-52.0); LYMPH # 1.8 10*3/uL (1.3-4.4); LYMPH % 16.7 % (27.0-41.0); MEAN CELL VOLUME 83.7 fl (80.0-94.0); MEAN CORPUSCULAR HGB 26.1 pg (27.0-31.0); MEAN CORPUSCULAR HGB CONC 31.2 g/dl (33.0-37.0); MONO # 0.8 10*3/uL (0.1-1.0); MONO % 7.4 % (3.0-9.0); NEUT # 7.5 10*3/uL (2.3-7.9); NEUT % 70.2 % (47.0-73.0); PLATELET COUNT AUTOMATED 402 10*3/uL (130-400); RED BLOOD COUNT 3.49 10*6/uL (4.50-5.90); RED CELL DISTRI WIDTH 14.5 % (0-14.5); WHITE BLOOD COUNT 10.7 10*3/uL (4.8-10.8)
[2024-01-03 06:12] LABS: POTASSIUM 4.2 mmol/L (3.4-5.1)
[2024-01-03 08:00] VITALS: BP 109/55
[2024-01-03 11:59] VITALS: BP 144/76
[2024-01-03] MEDS ORDERED: Sevelamer Hydrochloride 800 MG TAB PO SCH (12:00)
[2024-01-03 16:00] VITALS: BP 164/72
[2024-01-03 20:25] VITALS: BP 138/75
[2024-01-04] VITALS: BP 115/61
[2024-01-04 06:18] LABS: BASO # 0.1 10*3/uL (0.0-0.1); BASO % 0.6 % (0.0-1.0); EOS # 0.6 10*3/uL (0.0-0.4); EOS % 6.5 % (1.0-4.0); HEMATOCRIT 28.8 % (42.0-52.0); LYMPH # 1.5 10*3/uL (1.3-4.4); LYMPH % 16.4 % (27.0-41.0); MEAN CELL VOLUME 84.7 fl (80.0-94.0); MEAN CORPUSCULAR HGB 26.5 pg (27.0-31.0); MEAN CORPUSCULAR HGB CONC 31.3 g/dl (33.0-37.0); MEAN PLATELET VOLUME 10.5 fl (9.6-12.3); MONO # 0.7 10*3/uL (0.1-1.0); MONO % 8.2 % (3.0-9.0); NEUT # 6.1 10*3/uL (2.3-7.9); PLATELET COUNT AUTOMATED 356 10*3/uL (130-400); RED CELL DISTRI WIDTH 14.5 % (0-14.5)
[2024-01-04 08:00] VITALS: BP 144/68
[2024-01-04 08:21] LABS: POTASSIUM 4.2 mmol/L (3.4-5.1); TOTAL PROTEIN 7.1 gm/dL (6.0-8.0)
[2024-01-04 11:56] VITALS: BP 150/71
[2024-01-04 16:00] VITALS: BP 137/86
[2024-01-04 20:00] VITALS: BP 120/72
[2024-01-05] VITALS: BP 112/56
[2024-01-05 08:00] VITALS: BP 133/62
[2024-01-05 10:51] LABS: POTASSIUM 4.1 mmol/L (3.4-5.1)
[2024-01-05 12:00] VITALS: BP 142/84
[2024-01-05 16:00] VITALS: BP 139/76
[2024-01-05 20:00] VITALS: BP 126/68
[2024-01-05] MEDS ORDERED: AMMONIUM LACTATE 12% LOTION T SCH (22:00)
[2024-01-05] MEDS ORDERED: NYSTATIN 15 GM BOT T SCH (22:00)
[2024-01-06] VITALS: BP 122/57
[2024-01-06 06:53] LABS: POTASSIUM 3.8 mmol/L (3.4-5.1)
[2024-01-06 08:00] VITALS: BP 106/59
[2024-01-06] MEDS ORDERED: ERTAPENEM1 GM IV (11:10)
[2024-01-06] MEDS ORDERED: SEVELAMER HCL800 MG PO (11:10)
[2024-01-06] MEDS ORDERED: JARDIANCE10 MG PO (11:10)
[2024-01-06] MEDS ORDERED: AMLODIPINE BESY10 MG PO (11:10)
[2024-01-06] MEDS ORDERED: Humalog SQ (11:11)
[2024-01-06] MEDS ORDERED: SODIUM BICARBO650 MG PO (11:11)
[2024-01-06] MEDS ORDERED: METOPROLOL SUCC25 M2 PO (11:13)
[2024-01-06 12:00] VITALS: BP 137/74
== END 2024-01-06 14:33 | DRG 853 ==
LOC: ED 11:47 → EDHOLD 13:55 → 4E 13:55
PROVIDERS: Family Medicine; Internal Medicine; Internal Medicine Infectious Disease; Internal Medicine Nephrology; Nurse Practitioner Family; Podiatrist; Registered Nurse; Student in an Organized Health Care Education/Training Program; ADMIT Internal Medicine; ATTEND Internal Medicine
PROC: 0QBJ0ZX Excision of Right Fibula, Open Approach, Diagnostic (ICD-10-PCS; principal; 2023-12-15)
PROC: 0HRMXK3 Replacement of Right Foot Skin with Nonautologous Tissue Substitute, Full Thickness, External Approach (ICD-10-PCS; 2023-12-15)
PROC: 0QBL0ZX Excision of Right Tarsal, Open Approach, Diagnostic (ICD-10-PCS; 2023-12-15)
PROC: 2W1SX6Z Compression of Right Foot using Pressure Dressing (ICD-10-PCS; 2023-12-15)
PROC: 0QBN0ZX Excision of Right Metatarsal, Open Approach, Diagnostic (ICD-10-PCS; 2023-12-15)
PROC: 0HRMXK3 Replacement of Right Foot Skin with Nonautologous Tissue Substitute, Full Thickness, External Approach (ICD-10-PCS; 2023-12-15)
PROC: 2W3SX1Z Immobilization of Right Foot using Splint (ICD-10-PCS; 2023-12-15)
PROC: 0Q9L0ZZ Drainage of Right Tarsal, Open Approach (ICD-10-PCS; 2023-12-15)
PROC: 0Q9N0ZZ Drainage of Right Metatarsal, Open Approach (ICD-10-PCS; 2023-12-15)
PROC: B24BZZ4 Ultrasonography of Heart with Aorta, Transesophageal (ICD-10-PCS; 2023-12-17)
PROC: 2W1SX6Z Compression of Right Foot using Pressure Dressing (ICD-10-PCS; 2023-12-19)
PROC: 2W3SX1Z Immobilization of Right Foot using Splint (ICD-10-PCS; 2023-12-19)
PROC: 02HV33Z Insertion of Infusion Device into Superior Vena Cava, Percutaneous Approach (ICD-10-PCS; 2023-12-19)
PROC: B548ZZA Ultrasonography of Superior Vena Cava, Guidance (ICD-10-PCS; 2023-12-19)
DX: A41.9 Sepsis, unspecified organism (principal); G93.41 Metabolic encephalopathy; N17.0 Acute kidney failure with tubular necrosis; L97.518 Non-pressure chronic ulcer of other part of right foot with other specified severity; E87.1 Hypo-osmolality and hyponatremia; M86.171 Other acute osteomyelitis, right ankle and foot; L02.415 Cutaneous abscess of right lower limb; N39.0 Urinary tract infection, site not specified; R65.20 Severe sepsis without septic shock; W18.39XA Other fall on same level, initial encounter; E11.40 Type 2 diabetes mellitus with diabetic neuropathy, unspecified; E11.621 Type 2 diabetes mellitus with foot ulcer; I77.6 Arteritis, unspecified; E83.39 Other disorders of phosphorus metabolism; F43.21 Adjustment disorder with depressed mood; E11.65 Type 2 diabetes mellitus with hyperglycemia; D64.9 Anemia, unspecified; I10 Essential (primary) hypertension; N50.82 Scrotal pain; E11.628 Type 2 diabetes mellitus with other skin complications; E11.69 Type 2 diabetes mellitus with other specified complication; Z79.84 Long term (current) use of oral hypoglycemic drugs; Z79.899 Other long term (current) drug therapy; Y93.89 Activity, other specified; Y92.89 Other specified places as the place of occurrence of the external cause; Y99.8 Other external cause status

== ENCOUNTER 2024-01-13 12:03 | Emergency (ER) | payer OTHER, MEDICAID ==
[~2024-01-13] VITALS: Ht 172.7 cm; Wt 87.1 kg
[~2024-01-13 12:03] MED LIST: AMLODIPINE BESY10 MG PO; AMLODIPINE BESYL5 MG PO; ATORVASTATIN CA40 M1 PO; CEFEPIME1 GM/50 ML IV; ERTAPENEM1 GM IV; Humalog SQ; JARDIANCE10 MG PO; METFORMIN HYD1000 MG PO; METOPROLOL SUCC25 M2 PO; SEVELAMER HCL800 MG PO; SODIUM BICARBO650 MG PO; Zestril,Prinivi40 MG PO
[2024-01-13] MEDS ORDERED: MILK OF MA400 MG/53 PO (12:23)
[2024-01-13] MEDS ORDERED: BISACODYL10 MG/30 M R (12:24)
[2024-01-13] MEDS ORDERED: FLEET ENEMA 13133 ML R (12:25)
[2024-01-13 12:41] LABS: BASO % 0.5 % (0.0-1.0); EOS # 0.4 10*3/uL (0.0-0.4); EOS % 4.5 % (1.0-4.0); HEMATOCRIT 24.2 % (42.0-52.0); LYMPH % 13.2 % (27.0-41.0); MEAN CELL VOLUME 85.2 fl (80.0-94.0); MEAN CORPUSCULAR HGB 26.8 pg (27.0-31.0); MEAN CORPUSCULAR HGB CONC 31.4 g/dl (33.0-37.0); MEAN PLATELET VOLUME 9.1 fl (9.6-12.3); MONO # 0.8 10*3/uL (0.1-1.0); MONO % 10.8 % (3.0-9.0); NEUT # 5.5 10*3/uL (2.3-7.9); NEUT % 70.7 % (47.0-73.0); PLATELET COUNT AUTOMATED 261 10*3/uL (130-400); RED BLOOD COUNT 2.84 10*6/uL (4.50-5.90); RED CELL DISTRI WIDTH 14.5 % (0-14.5); WHITE BLOOD COUNT 7.8 10*3/uL (4.8-10.8)
[2024-01-13 13:11] LABS: ALKALINE PHOSPHATASE 105 U/L (46-116); BUN 44 mg/dl (9-23); CHLORIDE 107 mmol/L (98-107); POTASSIUM 3.8 mmol/L (3.4-5.1); TOTAL PROTEIN 6.4 gm/dL (6.0-8.0)
[2024-01-13 13:16] LABS: SGPT/ALT < 7 U/L (5-49)
[2024-01-13 13:22] LABS: BILIRUBIN Negative (Negative); BLOOD 2+ (Negative); CLARITY Clear (Clear); COLOR Yellow (Yellow); GLUCOSE 3+ (Negative); KETONE Negative (Negative); LEUKO ESTERASE Negative (Negative); NITRITE Negative (Negative); UROBILINOGEN 0.2 E.U./dl (0.0-1.0)
[2024-01-13 13:30] LABS: BACTERIA 2+; RBC 31-40 rbc/hpf (0-2)
[2024-01-13 13:31] LABS: EPITHELIAL CELLS 0-2
== END 2024-01-13 16:02 ==
LOC: ED 12:03
PROVIDERS: Physician Assistant Medical
DX: J18.9 Pneumonia, unspecified organism (principal); M86.9 Osteomyelitis, unspecified; R53.1 Weakness; R41.0 Disorientation, unspecified; E11.9 Type 2 diabetes mellitus without complications; Z98.890 Other specified postprocedural states

== ENCOUNTER 2024-01-17 19:05 | Emergency (ER) | payer OTHER, MEDICAID ==
[~2024-01-17 19:05] MED LIST changes: +BISACODYL10 MG/30 M R; +FLEET ENEMA 13133 ML R; +MILK OF MA400 MG/53 PO
[2024-01-17 19:48] LABS: HEMATOCRIT 24.5 % (42.0-52.0); MEAN CORPUSCULAR HGB 26.3 pg (27.0-31.0); MEAN CORPUSCULAR HGB CONC 30.6 g/dl (33.0-37.0); PLATELET COUNT AUTOMATED 323 10*3/uL (130-400); RED BLOOD COUNT 2.85 10*6/uL (4.50-5.90); RED CELL DISTRI WIDTH 14.4 % (0-14.5); WHITE BLOOD COUNT 18.9 10*3/uL (4.8-10.8)
[2024-01-17 19:51] LABS: MANUAL DIFF REFLEX YES
[2024-01-17 20:14] LABS: BASOPHILS 1 % (0-1); PLATELET SUFFICIENCY NORMAL (NORMAL); TOTAL CELLS COUNTED 100 #CELLS
[2024-01-17 20:23] LABS: ALKALINE PHOSPHATASE 100 U/L (46-116); BUN 28 mg/dl (9-23); CHLORIDE 103 mmol/L (98-107); POTASSIUM 4.9 mmol/L (3.4-5.1); TOTAL PROTEIN 6.5 gm/dL (6.0-8.0)
[2024-01-17 20:24] LABS: SGPT/ALT < 7 U/L (5-49)
[2024-01-17 20:28] LABS: BILIRUBIN Negative (Negative); BLOOD 2+ (Negative); CLARITY Clear (Clear); COLOR Yellow (Yellow); GLUCOSE 1+ (Negative); KETONE Negative (Negative); LEUKO ESTERASE Negative (Negative); NITRITE Negative (Negative); PH 7.5 (4.5-8.0); UROBILINOGEN 0.2 E.U./dl (0.0-1.0)
[2024-01-17 20:46] LABS: BACTERIA 1+; MUCOUS 1+; RBC 41-50 rbc/hpf (0-2)
[2024-01-19] MEDS ORDERED: CEFEPIME HYDROCH2 GM IV (13:32)
[2024-01-19] MEDS ORDERED: HUMALOG100 UNIT/2 SQ (13:33)
[2024-01-19] MEDS ORDERED: LEVOFLOXACIN750 M2 PO (13:34)
== END 2024-01-18 00:10 | disposition short-term general hospital (02) ==
LOC: ED 19:05
PROVIDERS: Physician Assistant Medical
DX: R41.82 Altered mental status, unspecified (principal); D72.829 Elevated white blood cell count, unspecified; E11.9 Type 2 diabetes mellitus without complications; Z98.890 Other specified postprocedural states

== ENCOUNTER 2024-01-19 13:24 | Inpatient (IN) | payer OTHER, MEDICAID ==
[~2024-01-19] VITALS: Ht 173 cm; Wt 96.8 kg
[2024-01-19 13:28] VITALS: BP 123/58
[2024-01-19] MEDS ORDERED: CEFEPIME HYDROCH2 GM IV (13:32)
[2024-01-19] MEDS ORDERED: HUMALOG100 UNIT/2 SQ (13:33)
[2024-01-19] MEDS ORDERED: LEVOFLOXACIN750 M2 PO (13:34)
[2024-01-19 13:53] LABS: BASO % 0.3 % (0.0-1.0); EOS # 0.2 10*3/uL (0.0-0.4); EOS % 1.4 % (1.0-4.0); HEMATOCRIT 22.2 % (42.0-52.0); LYMPH # 0.9 10*3/uL (1.3-4.4); LYMPH % 8.3 % (27.0-41.0); MEAN CELL VOLUME 84.4 fl (80.0-94.0); MEAN CORPUSCULAR HGB 26.6 pg (27.0-31.0); MEAN CORPUSCULAR HGB CONC 31.5 g/dl (33.0-37.0); MEAN PLATELET VOLUME 9.3 fl (9.6-12.3); MONO # 1.4 10*3/uL (0.1-1.0); NEUT % 76.2 % (47.0-73.0); PLATELET COUNT AUTOMATED 279 10*3/uL (130-400); RED BLOOD COUNT 2.63 10*6/uL (4.50-5.90); RED CELL DISTRI WIDTH 14.4 % (0-14.5); WHITE BLOOD COUNT 10.5 10*3/uL (4.8-10.8)
[2024-01-19 14:05] LABS: ACT PARTIAL THROMBO TIME 38.4 SECONDS (20.0-32.1)
[2024-01-19 14:09] LABS: ALKALINE PHOSPHATASE 91 U/L (46-116); BUN 29 mg/dl (9-23); CHLORIDE 105 mmol/L (98-107); LIPASE 28 U/L (12-53); POTASSIUM 4.2 mmol/L (3.4-5.1); TOTAL PROTEIN 5.9 gm/dL (6.0-8.0)
[2024-01-19 14:16] LABS: SGPT/ALT < 7 U/L (5-49)
[2024-01-19] MEDS ORDERED: Ceftriaxone Sodium 1 GM/10 ML SYR IV ONE (14:30)
[2024-01-19] MEDS ORDERED: SODIUM CHLORIDE 0.9% 1,000 ML IV ONE (14:30)
[2024-01-19] MEDS ORDERED: MAGNESIUM SULFATE 100 ML IV ONE (14:30)
[2024-01-19] MEDS ORDERED: AZITHROMYCIN 250 ML IV ONE (14:30)
[2024-01-19] MEDS ORDERED: ACETAMINOPHEN 325 MG TAB PO PRN (15:50)
[2024-01-19] MEDS ORDERED: Magnesium Hydroxide 30 ML UDC PO PRN (15:50)
[2024-01-19] MEDS ORDERED: ACETAMINOPHEN 650 MG SUPP R PRN (15:50)
[2024-01-19] MEDS ORDERED: Acetaminophen/Hydrocodone 5 MG/325 MG TABLET PO PRN (15:50)
[2024-01-19] MEDS ORDERED: BISACODYL 5 MG TAB PO PRN (15:50)
[2024-01-19] MEDS ORDERED: BISACODYL 10 MG SUPP R PRN (15:50)
[2024-01-19] MEDS ORDERED: Ondansetron Hydrochloride 4 MG/2 ML VIAL IV PRN (15:50)
[2024-01-19 16:00] VITALS: BP 151/87
[2024-01-19] MEDS ORDERED: DEXTROSE 10 % IN WATER 250 ML IV PRN (17:50)
[2024-01-19] MEDS ORDERED: FUROSEMIDE 40 MG/4 ML VIAL IV SCH (18:00)
[2024-01-19 18:30] VITALS: BP 151/87
[2024-01-19 20:00] VITALS: BP 132/70
[2024-01-19] MEDS ORDERED: Meropenem 1 GM in SODIUM CHLORIDE 0.9% 100 ML IV SCH (20:00)
[2024-01-19] MEDS ORDERED: INSULIN LISPRO 1 UNIT/0.01 ML SQ SCH (22:00)
[2024-01-19] MEDS ORDERED: Midazolam Hydrochloride 2 MG/2 ML VIAL IV ONE (23:55)
[2024-01-20] VITALS (10 sets, daily range): BP systolic 113–154; BP diastolic 60–136
[2024-01-20 01:21] LABS: BILIRUBIN Negative (Negative); BLOOD 3+ (Negative); CLARITY Clear (Clear); COLOR Yellow (Yellow); GLUCOSE Negative (Negative); KETONE Trace (Negative); LEUKO ESTERASE Trace (Negative); NITRITE Negative (Negative); PH 5.5 (4.5-8.0); UROBILINOGEN 0.2 E.U./dl (0.0-1.0)
[2024-01-20 01:28] LABS: BACTERIA 2+; MUCOUS 1+; RBC 41-50 rbc/hpf (0-2); YEAST 1+
[2024-01-20 06:01] LABS: HEMATOCRIT 22.4 % (42.0-52.0); MEAN CELL VOLUME 85.2 fl (80.0-94.0); MEAN CORPUSCULAR HGB 26.2 pg (27.0-31.0); MEAN CORPUSCULAR HGB CONC 30.8 g/dl (33.0-37.0); MEAN PLATELET VOLUME 9.7 fl (9.6-12.3); PLATELET COUNT AUTOMATED 297 10*3/uL (130-400); RED BLOOD COUNT 2.63 10*6/uL (4.50-5.90); RED CELL DISTRI WIDTH 14.4 % (0-14.5)
[2024-01-20 06:16] LABS: MANUAL DIFF REFLEX YES
[2024-01-20] MEDS ORDERED: HEEL PROTECTOR DEVICE ONE (06:30)
[2024-01-20] MEDS ORDERED: CHAIR CUSHION DEVICE ONE (06:30)
[2024-01-20 06:31] LABS: ALKALINE PHOSPHATASE 88 U/L (46-116); BUN 27 mg/dl (9-23); CHLORIDE 108 mmol/L (98-107); FREE T4 1.43 ng/dl (0.89-1.76); POTASSIUM 3.9 mmol/L (3.4-5.1); SGPT/ALT < 7 U/L (5-49); TOTAL PROTEIN 5.9 gm/dL (6.0-8.0)
[2024-01-20 07:06] LABS: BASOPHILS 1 % (0-1); TOTAL CELLS COUNTED 100 #CELLS
[2024-01-20 07:07] LABS: MICROCYTOSIS SLIGHT; OVALOCYTES FEW; PLATELET SUFFICIENCY NORMAL (NORMAL)
[2024-01-20] MEDS ORDERED: Sevelamer Hydrochloride 800 MG TAB PO SCH (08:00)
[2024-01-20] MEDS ORDERED: Vancomycin Hydrochloride 1,000 MG in SODIUM CHLORIDE 0.9% 250 ML IV SCH (08:50)
[2024-01-20] MEDS ORDERED: MUPIROCIN 15 GM TUBE T SCH (09:05)
[2024-01-20] MEDS ORDERED: SODIUM CHLORIDE 0.9% 250 ML IV SCH (09:10)
[2024-01-20] MEDS ORDERED: VANCOMYCIN/WATER FOR INJ (PEG) 300 ML IV SCH (10:00)
[2024-01-20] MEDS ORDERED: METOPROLOL SUCCINATE XR 25 MG TAB PO SCH (10:00)
[2024-01-20] MEDS ORDERED: amLODIPine besylate 10 MG TAB PO SCH (10:00)
[2024-01-20] MEDS ORDERED: Enoxaparin Sodium 40 MG/0.4 ML SYR SC SCH (10:00)
[2024-01-20] MEDS ORDERED: Menthol/Zinc Oxide 4 GM THIN T PRN (11:10)
[2024-01-20] MEDS ORDERED: Lidocaine Hydrochloride 2% 5 ML SDV ONE (15:24)
[2024-01-20 15:44] LABS: BASO % 0.4 % (0.0-1.0); EOS # 0.3 10*3/uL (0.0-0.4); EOS % 3.6 % (1.0-4.0); HEMATOCRIT 25.3 % (42.0-52.0); LYMPH # 0.9 10*3/uL (1.3-4.4); MEAN CELL VOLUME 85.5 fl (80.0-94.0); MEAN CORPUSCULAR HGB 26.7 pg (27.0-31.0); MEAN CORPUSCULAR HGB CONC 31.2 g/dl (33.0-37.0); MEAN PLATELET VOLUME 9.4 fl (9.6-12.3); MONO # 1.4 10*3/uL (0.1-1.0); MONO % 17.1 % (3.0-9.0); NEUT # 5.4 10*3/uL (2.3-7.9); NEUT % 67.3 % (47.0-73.0); PLATELET COUNT AUTOMATED 282 10*3/uL (130-400); RED BLOOD COUNT 2.96 10*6/uL (4.50-5.90); RED CELL DISTRI WIDTH 14.1 % (0-14.5)
[2024-01-20] MEDS ORDERED: Doxycycline Hyclate 100 MG in SODIUM CHLORIDE 0.9% 250 ML IV SCH (16:00)
[2024-01-20] MEDS ORDERED: ATORVASTATIN CALCIUM 40 MG TABLET PO SCH (18:00)
[2024-01-20] MEDS ORDERED: Nicotine 21 MG PATCH T SCH (20:00)
[2024-01-20] MEDS ORDERED: Menthol/Zinc Oxide 4 GM THIN T SCH (22:00)
[2024-01-21] VITALS: BP 99/66
[2024-01-21 05:53] VITALS: BP 132/76
[2024-01-21 06:06] LABS: BASO % 0.4 % (0.0-1.0); EOS # 0.3 10*3/uL (0.0-0.4); HEMATOCRIT 24.6 % (42.0-52.0); LYMPH # 0.9 10*3/uL (1.3-4.4); LYMPH % 11.3 % (27.0-41.0); MEAN CELL VOLUME 85.1 fl (80.0-94.0); MEAN CORPUSCULAR HGB 26.6 pg (27.0-31.0); MEAN CORPUSCULAR HGB CONC 31.3 g/dl (33.0-37.0); MEAN PLATELET VOLUME 9.8 fl (9.6-12.3); MONO # 1.4 10*3/uL (0.1-1.0); MONO % 18.4 % (3.0-9.0); NEUT # 4.9 10*3/uL (2.3-7.9); PLATELET COUNT AUTOMATED 280 10*3/uL (130-400); RED BLOOD COUNT 2.89 10*6/uL (4.50-5.90); RED CELL DISTRI WIDTH 14.1 % (0-14.5); WHITE BLOOD COUNT 7.5 10*3/uL (4.8-10.8)
[2024-01-21 06:23] LABS: POTASSIUM 3.8 mmol/L (3.4-5.1)
[2024-01-21 08:00] VITALS: BP 125/78
[2024-01-21] MEDS ORDERED: Nicotine 21 MG PATCH T SCH (10:00)
[2024-01-21] MEDS ORDERED: Ceftriaxone Sodium 1 GM in SYRINGE INFUSION 10 ML IV SCH (10:00)
[2024-01-21 12:00] VITALS: BP 144/78
[2024-01-21 16:00] VITALS: BP 141/75
[2024-01-21 20:00] VITALS: BP 143/68
[2024-01-21] MEDS ORDERED: Ceftriaxone Sodium 2 GM in SYRINGE INFUSION 20 ML IV SCH (22:00)
[2024-01-21] MEDS ORDERED: LORazepam 1 MG TAB PO ONE (22:35)
[2024-01-22] VITALS: BP 141/68; BP 141/8
[2024-01-22 06:34] LABS: BASO # 0.1 10*3/uL (0.0-0.1); BASO % 0.6 % (0.0-1.0); EOS # 0.4 10*3/uL (0.0-0.4); EOS % 4.8 % (1.0-4.0); HEMATOCRIT 27.5 % (42.0-52.0); LYMPH # 1.3 10*3/uL (1.3-4.4); LYMPH % 14.2 % (27.0-41.0); MEAN CELL VOLUME 86.2 fl (80.0-94.0); MEAN CORPUSCULAR HGB 26.3 pg (27.0-31.0); MEAN CORPUSCULAR HGB CONC 30.5 g/dl (33.0-37.0); MEAN PLATELET VOLUME 9.7 fl (9.6-12.3); MONO # 1.4 10*3/uL (0.1-1.0); MONO % 16.1 % (3.0-9.0); NEUT # 5.7 10*3/uL (2.3-7.9); PLATELET COUNT AUTOMATED 348 10*3/uL (130-400); RED BLOOD COUNT 3.19 10*6/uL (4.50-5.90); RED CELL DISTRI WIDTH 14.3 % (0-14.5)
[2024-01-22 06:50] LABS: POTASSIUM 3.6 mmol/L (3.4-5.1)
[2024-01-22 08:00] VITALS: BP 102/83
[2024-01-22] MEDS ORDERED: METOPROLOL SUCCINATE XR 50 MG TAB PO SCH (10:00)
[2024-01-22 12:00] VITALS: BP 136/75
[2024-01-22] MEDS ORDERED: REMEDY CALAZIME4 GM T (13:36)
[2024-01-22] MEDS ORDERED: NICODERM T (13:36)
[2024-01-22] MEDS ORDERED: METOPROLOL SUCC50 M1 PO (13:36)
[2024-01-22] MEDS ORDERED: Bactroban Oint22 GM T (13:36)
[2024-01-22] MEDS ORDERED: CEFTRIAXON2 GM/50 ML IV (13:36)
[2024-01-22 16:00] VITALS: BP 125/71
[2024-02-23] MEDS ORDERED: TYLENOL325 M1 PO (18:20)
[2024-02-23] MEDS ORDERED: NORVASC10 MG PO (18:21)
[2024-02-23] MEDS ORDERED: LIPITOR40 MG PO (18:22)
[2024-02-23] MEDS ORDERED: BISACODYL10 MG R (18:24)
[2024-02-23] MEDS ORDERED: PROBIOTIC250 MG PO (18:28)
[2024-02-23] MEDS ORDERED: VITAMIN D31250 MC2 PO (18:33)
== END 2024-01-22 18:25 | DRG 193 ==
LOC: ED 13:24 → 4E 14:55 → EDHOLD 14:55 → 4E 15:45
PROVIDERS: Internal Medicine; Student in an Organized Health Care Education/Training Program; ADMIT Family Medicine; ATTEND Family Medicine
PROC: 30233N1 Transfusion of Nonautologous Red Blood Cells into Peripheral Vein, Percutaneous Approach (ICD-10-PCS; principal; 2024-01-20)
DX: J18.9 Pneumonia, unspecified organism (principal); E43 Unspecified severe protein-calorie malnutrition; N17.0 Acute kidney failure with tubular necrosis; G92.8 Other toxic encephalopathy; J81.0 Acute pulmonary edema; M86.8X7 Other osteomyelitis, ankle and foot; L03.115 Cellulitis of right lower limb; N39.0 Urinary tract infection, site not specified; L97.518 Non-pressure chronic ulcer of other part of right foot with other specified severity; Z16.21 Resistance to vancomycin; J91.8 Pleural effusion in other conditions classified elsewhere; D64.9 Anemia, unspecified; E11.40 Type 2 diabetes mellitus with diabetic neuropathy, unspecified; E11.69 Type 2 diabetes mellitus with other specified complication; E11.621 Type 2 diabetes mellitus with foot ulcer; B96.89 Other specified bacterial agents as the cause of diseases classified elsewhere; I95.9 Hypotension, unspecified; L89.150 Pressure ulcer of sacral region, unstageable; R33.9 Retention of urine, unspecified; T36.8X5A Adverse effect of other systemic antibiotics, initial encounter; E83.42 Hypomagnesemia; E87.8 Other disorders of electrolyte and fluid balance, not elsewhere classified; R31.9 Hematuria, unspecified; I10 Essential (primary) hypertension; E78.5 Hyperlipidemia, unspecified; Z79.4 Long term (current) use of insulin; Z86.718 Personal history of other venous thrombosis and embolism; Y92.89 Other specified places as the place of occurrence of the external cause; Z79.899 Other long term (current) drug therapy; Z68.32 Body mass index [BMI] 32.0-32.9, adult

== ENCOUNTER 2024-02-02 05:07 | Emergency (ER) | payer OTHER, MEDICAID ==
[~2024-02-02] VITALS: Ht 172.7 cm; Wt 77.1 kg
[~2024-02-02 05:07] MED LIST changes: +Bactroban Oint22 GM T; +CEFEPIME HYDROCH2 GM IV; +CEFTRIAXON2 GM/50 ML IV; +HUMALOG100 UNIT/2 SQ; +LEVOFLOXACIN750 M2 PO; +METOPROLOL SUCC50 M1 PO; +NICODERM T; +REMEDY CALAZIME4 GM T
[2024-02-02] MEDS ORDERED: Ketorolac Tromethamine 30 MG/ML VIAL IV ONE (05:15)
[2024-02-02] MEDS ORDERED: Ondansetron Hydrochloride 4 MG/2 ML VIAL IV ONE (05:15)
[2024-02-02] MEDS ORDERED: SODIUM CHLORIDE 0.9% 1,000 ML IV ONE (05:15)
[2024-02-02] MEDS ORDERED: diphenhydrAMINE hydrochloride 50 MG/ML VIAL IV ONE (05:15)
== END 2024-02-02 09:06 | disposition home or self-care (01) ==
LOC: ED 05:07
DX: R51.9 Headache, unspecified (principal); E11.9 Type 2 diabetes mellitus without complications; I10 Essential (primary) hypertension; Z98.890 Other specified postprocedural states

== ENCOUNTER → 2024-03-11 | Outpatient (CLI) | payer OTHER ==
[~2024-03-11] MED LIST changes: +APRESOLINE25 MG PO; +BISACODYL10 MG R; +FUROSEMIDE20 M1 PO; +LASIX40 MG PO; +LIPITOR40 MG PO; +Magnesium Oxid400 MG PO; +NORVASC10 MG PO; +POTASSIUM CHLO20 ME4 PO; +PROBIOTIC250 MG PO; +TYLENOL325 M1 PO; +VITAMIN D31250 MC2 PO
== END | disposition home or self-care (01) ==
LOC: WOUNDCARE 01:31
PROVIDERS: ATTEND Nurse Practitioner Family
DX: E11.621 Type 2 diabetes mellitus with foot ulcer (principal); L97.514 Non-pressure chronic ulcer of other part of right foot with necrosis of bone; E11.51 Type 2 diabetes mellitus with diabetic peripheral angiopathy without gangrene; E11.69 Type 2 diabetes mellitus with other specified complication; M86.9 Osteomyelitis, unspecified; E11.22 Type 2 diabetes mellitus with diabetic chronic kidney disease; I12.9 Hypertensive chronic kidney disease with stage 1 through stage 4 chronic kidney disease, or unspecified chronic kidney disease; N18.9 Chronic kidney disease, unspecified; E78.5 Hyperlipidemia, unspecified; F17.290 Nicotine dependence, other tobacco product, uncomplicated; Z99.2 Dependence on renal dialysis; Z79.84 Long term (current) use of oral hypoglycemic drugs; Z79.899 Other long term (current) drug therapy

== ENCOUNTER 2024-03-12 15:48 | Emergency (ER) | payer OTHER ==
[~2024-03-12] VITALS: Ht 172.7 cm; Wt 107.5 kg
[~2024-03-12 15:48] MED LIST changes: -FUROSEMIDE20 M1 PO; -LASIX40 MG PO; -Magnesium Oxid400 MG PO; -POTASSIUM CHLO20 ME4 PO
[2024-03-12 16:56] LABS: BASO # 0.1 10*3/uL (0.0-0.1); BASO % 0.6 % (0.0-1.0); EOS # 0.3 10*3/uL (0.0-0.4); EOS % 4.3 % (1.0-4.0); HEMATOCRIT 28.6 % (42.0-52.0); LYMPH # 1.3 10*3/uL (1.3-4.4); LYMPH % 16.4 % (27.0-41.0); MEAN CELL VOLUME 89.4 fl (80.0-94.0); MEAN CORPUSCULAR HGB 27.2 pg (27.0-31.0); MEAN CORPUSCULAR HGB CONC 30.4 g/dl (33.0-37.0); MEAN PLATELET VOLUME 8.8 fl (9.6-12.3); MONO # 0.6 10*3/uL (0.1-1.0); MONO % 7.5 % (3.0-9.0); NEUT # 5.6 10*3/uL (2.3-7.9); NEUT % 71.1 % (47.0-73.0); PLATELET COUNT AUTOMATED 318 10*3/uL (130-400); RED CELL DISTRI WIDTH 15.7 % (0-14.5); WHITE BLOOD COUNT 7.9 10*3/uL (4.8-10.8)
[2024-03-12 17:27] LABS: ALKALINE PHOSPHATASE 88 U/L (46-116); BUN 12 mg/dl (9-23); CHLORIDE 115 mmol/L (98-107); POTASSIUM 3.9 mmol/L (3.4-5.1); SGPT/ALT 9 U/L (5-49); TOTAL PROTEIN 4.7 gm/dL (6.0-8.0)
[2024-03-12] MEDS ORDERED: FUROSEMIDE20 M1 PO (17:30)
[2024-03-12] MEDS ORDERED: Magnesium Oxid400 MG PO (17:31)
[2024-03-12] MEDS ORDERED: ALBUMIN 25% 100 ML IV ONE (17:35)
[2024-03-12] MEDS ORDERED: FUROSEMIDE 40 MG/4 ML VIAL IV ONE (17:35)
[2024-03-12] MEDS ORDERED: POTASSIUM CHLO20 ME4 PO (17:45)
[2024-03-12] MEDS ORDERED: LASIX40 MG PO (18:25)
== END 2024-03-12 18:57 | disposition home or self-care (01) ==
LOC: ED 15:48
PROVIDERS: Emergency Medicine
DX: R60.1 Generalized edema (principal); I11.0 Hypertensive heart disease with heart failure; I50.9 Heart failure, unspecified; E11.9 Type 2 diabetes mellitus without complications; E88.09 Other disorders of plasma-protein metabolism, not elsewhere classified; Z88.8 Allergy status to other drugs, medicaments and biological substances; Z98.890 Other specified postprocedural states

== ENCOUNTER → 2024-04-13 | Outpatient (CLI) | payer OTHER ==
[~2024-04-13] MED LIST changes: +ALDACTONE25 MG PO; +FUROSEMIDE20 M1 PO; +HYDR12.5C PO; +LASIX40 MG PO; +MASON NATURAL325 MG PO; +Magnesium Oxid400 MG PO; +NORMODYNE,TRAN100 MG PO; +POTASSIUM CHLO20 ME4 PO; +VIBRAMYCIN HYC100 MG PO; +VITAMIN D31250 MC1 PO
== END | disposition home or self-care (01) ==
LOC: WOUNDCARE 02:27
PROVIDERS: ATTEND Nurse Practitioner Family
DX: E11.621 Type 2 diabetes mellitus with foot ulcer (principal); L97.514 Non-pressure chronic ulcer of other part of right foot with necrosis of bone; E11.51 Type 2 diabetes mellitus with diabetic peripheral angiopathy without gangrene; E11.69 Type 2 diabetes mellitus with other specified complication; M86.9 Osteomyelitis, unspecified; E11.22 Type 2 diabetes mellitus with diabetic chronic kidney disease; I12.9 Hypertensive chronic kidney disease with stage 1 through stage 4 chronic kidney disease, or unspecified chronic kidney disease; N18.9 Chronic kidney disease, unspecified; E78.5 Hyperlipidemia, unspecified; F17.290 Nicotine dependence, other tobacco product, uncomplicated; Z99.2 Dependence on renal dialysis; Z79.84 Long term (current) use of oral hypoglycemic drugs; Z79.899 Other long term (current) drug therapy

== ENCOUNTER → 2024-04-20 | Outpatient (CLI) | payer OTHER | END | disposition home or self-care (01) | LOC: WOUNDCARE 00:05 | PROVIDERS: ATTEND Nurse Practitioner Family | DX: E11.621 Type 2 diabetes mellitus with foot ulcer (principal); L97.514 Non-pressure chronic ulcer of other part of right foot with necrosis of bone; E11.51 Type 2 diabetes mellitus with diabetic peripheral angiopathy without gangrene; E11.69 Type 2 diabetes mellitus with other specified complication; M86.9 Osteomyelitis, unspecified; E11.22 Type 2 diabetes mellitus with diabetic chronic kidney disease; I12.9 Hypertensive chronic kidney disease with stage 1 through stage 4 chronic kidney disease, or unspecified chronic kidney disease; N18.9 Chronic kidney disease, unspecified; E78.5 Hyperlipidemia, unspecified; F17.290 Nicotine dependence, other tobacco product, uncomplicated; Z99.2 Dependence on renal dialysis; Z79.84 Long term (current) use of oral hypoglycemic drugs; Z79.899 Other long term (current) drug therapy ==

== ENCOUNTER 2024-04-23 13:37 | Inpatient (IN) | payer OTHER ==
[~2024-04-23] VITALS: Ht 172.7 cm; Wt 98.6 kg
[2024-04-23] VITALS (11 sets, daily range): BP systolic 156–226; BP diastolic 80–119
[2024-04-23] MEDS ORDERED: FUROSEMIDE40 MG PO (13:48)
[2024-04-23] MEDS ORDERED: LABETALOL HCL300 MG PO (13:48)
[2024-04-23] MEDS ORDERED: HYDROCHLOROTHIA25 M1 PO (13:48)
[2024-04-23] MEDS ORDERED: Labetalol Hydrochloride 20 MG/4 ML SYR IV ONE ×3 (14:15→16:50)
[2024-04-23 15:12] LABS: BUN 15 mg/dl (9-23); CHLORIDE 112 mmol/L (98-107); POTASSIUM 4.3 mmol/L (3.4-5.1)
[2024-04-23 15:32] LABS: BASO # 0.1 10*3/uL (0.0-0.1); BASO % 0.7 % (0.0-1.0); EOS # 0.2 10*3/uL (0.0-0.4); EOS % 2.3 % (1.0-4.0); HEMATOCRIT 33.5 % (42.0-52.0); LYMPH # 1.7 10*3/uL (1.3-4.4); LYMPH % 19.4 % (27.0-41.0); MEAN CORPUSCULAR HGB 26.6 pg (27.0-31.0); MEAN CORPUSCULAR HGB CONC 31.3 g/dl (33.0-37.0); MEAN PLATELET VOLUME 9.4 fl (9.6-12.3); MONO # 0.5 10*3/uL (0.1-1.0); MONO % 6.3 % (3.0-9.0); NEUT # 6.1 10*3/uL (2.3-7.9); NEUT % 71.1 % (47.0-73.0); PLATELET COUNT AUTOMATED 380 10*3/uL (130-400); RED BLOOD COUNT 3.94 10*6/uL (4.50-5.90); RED CELL DISTRI WIDTH 14.8 % (0-14.5); WHITE BLOOD COUNT 8.6 10*3/uL (4.8-10.8)
[2024-04-23 15:45] LABS: ACT PARTIAL THROMBO TIME 26.2 SECONDS (20.0-32.1)
[2024-04-23] MEDS ORDERED: FUROSEMIDE 40 MG/4 ML VIAL IV ONE (16:10)
[2024-04-23] MEDS ORDERED: NITROGLYCERIN 1 IN PACKET T ONE (18:05)
[2024-04-23] MEDS ORDERED: BISACODYL 5 MG TAB PO PRN (19:25)
[2024-04-23] MEDS ORDERED: Acetaminophen/Hydrocodone 5 MG/325 MG TABLET PO PRN (19:25)
[2024-04-23] MEDS ORDERED: ACETAMINOPHEN 325 MG TAB PO PRN (19:25)
[2024-04-23] MEDS ORDERED: Ondansetron Hydrochloride 4 MG/2 ML VIAL IV PRN (19:25)
[2024-04-23] MEDS ORDERED: MORPHINE Sulfate 2 MG/ML SYR IV PRN (19:25)
[2024-04-23] MEDS ORDERED: TEMAZEPAM 15 MG CAP PO PRN (19:25)
[2024-04-23] MEDS ORDERED: Magnesium Hydroxide 30 ML UDC PO PRN (19:25)
[2024-04-23] MEDS ORDERED: ACETAMINOPHEN 650 MG SUPP R PRN (19:25)
[2024-04-23] MEDS ORDERED: BISACODYL 10 MG SUPP R PRN (19:25)
[2024-04-23] MEDS ORDERED: cloNIDine Hydrochloride 0.1 MG TAB PO ONE (19:30)
[2024-04-24] VITALS (11 sets, daily range): BP systolic 135–205; BP diastolic 63–120
[2024-04-24 05:27] LABS: ACT PARTIAL THROMBO TIME 28.8 SECONDS (20.0-32.1)
[2024-04-24 05:35] LABS: ALKALINE PHOSPHATASE 100 U/L (46-116); BUN 19 mg/dl (9-23); CHLORIDE 114 mmol/L (98-107); CHOLESTEROL 231 mg/dL (<200); FREE T4 0.96 ng/dl (0.89-1.76); LDL CHOLESTEROL 150 mg/dL (9-159); POTASSIUM 3.8 mmol/L (3.4-5.1); SGPT/ALT 9 U/L (5-49); TOTAL PROTEIN 4.7 gm/dL (6.0-8.0); TRIGLYCERIDES 130 mg/dl (<150)
[2024-04-24] MEDS ORDERED: Labetalol Hydrochloride 100 MG TAB PO SCH (06:00)
[2024-04-24 06:07] LABS: BASO # 0.1 10*3/uL (0.0-0.1); BASO % 0.8 % (0.0-1.0); EOS # 0.2 10*3/uL (0.0-0.4); EOS % 2.6 % (1.0-4.0); HEMATOCRIT 31.2 % (42.0-52.0); LYMPH # 1.4 10*3/uL (1.3-4.4); LYMPH % 19.7 % (27.0-41.0); MEAN CELL VOLUME 83.2 fl (80.0-94.0); MEAN CORPUSCULAR HGB 27.2 pg (27.0-31.0); MEAN CORPUSCULAR HGB CONC 32.7 g/dl (33.0-37.0); MEAN PLATELET VOLUME 9.9 fl (9.6-12.3); MONO # 0.5 10*3/uL (0.1-1.0); MONO % 6.5 % (3.0-9.0); NEUT # 5.1 10*3/uL (2.3-7.9); NEUT % 70.1 % (47.0-73.0); PLATELET COUNT AUTOMATED 373 10*3/uL (130-400); RED BLOOD COUNT 3.75 10*6/uL (4.50-5.90); RED CELL DISTRI WIDTH 14.7 % (0-14.5); WHITE BLOOD COUNT 7.2 10*3/uL (4.8-10.8)
[2024-04-24 08:52] LABS: VITAMIN D, 25-HYDROXY 17.2 ng/mL (30-100)
[2024-04-24] MEDS ORDERED: HYDROCHLOROTHIAZIDE 25 MG TAB PO SCH (10:00)
[2024-04-24] MEDS ORDERED: Enoxaparin Sodium 40 MG/0.4 ML SYR SC SCH (10:00)
[2024-04-24] MEDS ORDERED: amLODIPine besylate 5 MG TAB PO SCH ×2 (10:00)
[2024-04-24] MEDS ORDERED: NIFEdipine 10 MG CAP PO SCH (10:00)
[2024-04-24] MEDS ORDERED: FUROSEMIDE 40 MG TAB PO SCH (10:00)
[2024-04-24] MEDS ORDERED: SPIRONOLACTONE 25 MG TAB PO SCH (10:00)
[2024-04-24] MEDS ORDERED: ATORVASTATIN CALCIUM 40 MG TABLET PO SCH (22:00)
[2024-04-25] VITALS: BP 176/94
[2024-04-25 01:36] VITALS: BP 183/100
[2024-04-25 05:02] VITALS: BP 152/84
[2024-04-25 05:55] LABS: BUN 21 mg/dl (9-23); CHLORIDE 110 mmol/L (98-107); POTASSIUM 3.5 mmol/L (3.4-5.1)
[2024-04-25 06:11] LABS: BASO # 0.1 10*3/uL (0.0-0.1); BASO % 0.7 % (0.0-1.0); EOS # 0.3 10*3/uL (0.0-0.4); EOS % 3.8 % (1.0-4.0); HEMATOCRIT 30.2 % (42.0-52.0); LYMPH # 1.6 10*3/uL (1.3-4.4); LYMPH % 21.3 % (27.0-41.0); MEAN CELL VOLUME 84.1 fl (80.0-94.0); MEAN CORPUSCULAR HGB 26.7 pg (27.0-31.0); MEAN CORPUSCULAR HGB CONC 31.8 g/dl (33.0-37.0); MEAN PLATELET VOLUME 9.3 fl (9.6-12.3); MONO # 0.5 10*3/uL (0.1-1.0); MONO % 6.7 % (3.0-9.0); NEUT # 5.1 10*3/uL (2.3-7.9); NEUT % 67.2 % (47.0-73.0); PLATELET COUNT AUTOMATED 341 10*3/uL (130-400); RED BLOOD COUNT 3.59 10*6/uL (4.50-5.90); RED CELL DISTRI WIDTH 14.6 % (0-14.5); WHITE BLOOD COUNT 7.6 10*3/uL (4.8-10.8)
[2024-04-25] MEDS ORDERED: SODIUM CHLORIDE 0.9% 1,000 ML IV ONE (07:30)
[2024-04-25 08:00] VITALS: BP 164/82
[2024-04-25 12:00] VITALS: BP 160/92
[2024-04-25] MEDS ORDERED: ADALAT10 MG PO (12:27)
== END 2024-04-25 16:44 | disposition home health service (06) | DRG 291 ==
LOC: ED 13:37 → EDHOLD 19:21 → ICCU 21:37
PROVIDERS: Nurse Practitioner; Student in an Organized Health Care Education/Training Program; ADMIT Internal Medicine; ATTEND Internal Medicine
DX: I13.0 Hypertensive heart and chronic kidney disease with heart failure and stage 1 through stage 4 chronic kidney disease, or unspecified chronic kidney disease (principal); E43 Unspecified severe protein-calorie malnutrition; I50.33 Acute on chronic diastolic (congestive) heart failure; N17.0 Acute kidney failure with tubular necrosis; I16.1 Hypertensive emergency; N18.31 Chronic kidney disease, stage 3a; E78.2 Mixed hyperlipidemia; E11.22 Type 2 diabetes mellitus with diabetic chronic kidney disease; D64.9 Anemia, unspecified; E87.8 Other disorders of electrolyte and fluid balance, not elsewhere classified; Z91.09 Other allergy status, other than to drugs and biological substances; Z79.899 Other long term (current) drug therapy; Z79.4 Long term (current) use of insulin; Z79.01 Long term (current) use of anticoagulants; Z79.2 Long term (current) use of antibiotics; Z68.33 Body mass index [BMI] 33.0-33.9, adult

== ENCOUNTER 2024-04-27 19:27 | Emergency (ER) | payer OTHER ==
[~2024-04-27] VITALS: Ht 172.7 cm; Wt 100.2 kg
[2024-04-27] MEDS ORDERED: OXYCODONE HCL (IR) 5 MG TAB PO ONE (20:35)
[2024-04-27 20:50] LABS: BASO % 0.4 % (0.0-1.0); EOS # 0.2 10*3/uL (0.0-0.4); EOS % 1.7 % (1.0-4.0); HEMATOCRIT 29.6 % (42.0-52.0); LYMPH # 1.5 10*3/uL (1.3-4.4); LYMPH % 14.6 % (27.0-41.0); MEAN CELL VOLUME 83.4 fl (80.0-94.0); MEAN CORPUSCULAR HGB 26.5 pg (27.0-31.0); MEAN CORPUSCULAR HGB CONC 31.8 g/dl (33.0-37.0); MONO # 0.7 10*3/uL (0.1-1.0); MONO % 6.8 % (3.0-9.0); NEUT # 7.9 10*3/uL (2.3-7.9); NEUT % 76.3 % (47.0-73.0); PLATELET COUNT AUTOMATED 297 10*3/uL (130-400); RED BLOOD COUNT 3.55 10*6/uL (4.50-5.90); RED CELL DISTRI WIDTH 14.4 % (0-14.5); WHITE BLOOD COUNT 10.3 10*3/uL (4.8-10.8)
[2024-04-27 21:05] LABS: POTASSIUM 3.8 mmol/L (3.4-5.1)
[2024-04-27] MEDS ORDERED: Metoclopramide Hydrochloride 10 MG/2 ML AMP IV ONE (21:35)
[2024-04-27] MEDS ORDERED: SODIUM CHLORIDE 0.9% 500 ML IV ONE (21:35)
== END 2024-04-27 23:18 | disposition home or self-care (01) ==
LOC: ED 19:27
PROVIDERS: Emergency Medicine
DX: R51.9 Headache, unspecified (principal); M54.2 Cervicalgia; E78.00 Pure hypercholesterolemia, unspecified; D64.9 Anemia, unspecified; Z86.718 Personal history of other venous thrombosis and embolism; E78.5 Hyperlipidemia, unspecified; E11.22 Type 2 diabetes mellitus with diabetic chronic kidney disease; I13.0 Hypertensive heart and chronic kidney disease with heart failure and stage 1 through stage 4 chronic kidney disease, or unspecified chronic kidney disease; N18.31 Chronic kidney disease, stage 3a; Z79.4 Long term (current) use of insulin; E11.65 Type 2 diabetes mellitus with hyperglycemia; Z88.8 Allergy status to other drugs, medicaments and biological substances; Z98.890 Other specified postprocedural states

== ENCOUNTER → 2024-04-27 | Outpatient (CLI) | payer OTHER ==
[~2024-04-27] MED LIST changes: +ADALAT10 MG PO; +FUROSEMIDE40 MG PO; +HYDROCHLOROTHIA25 M1 PO; +LABETALOL HCL300 MG PO
[2024-04-27 11:06] LABS: POTASSIUM 3.8 mmol/L (3.4-5.1)
== END | disposition home or self-care (01) ==
LOC: LAB 02:37 → WOUNDCARE 02:37
PROVIDERS: Internal Medicine Cardiovascular Disease; ATTEND Nurse Practitioner Family
DX: E11.621 Type 2 diabetes mellitus with foot ulcer (principal); L97.514 Non-pressure chronic ulcer of other part of right foot with necrosis of bone; E11.51 Type 2 diabetes mellitus with diabetic peripheral angiopathy without gangrene; E11.69 Type 2 diabetes mellitus with other specified complication; M86.9 Osteomyelitis, unspecified; E11.22 Type 2 diabetes mellitus with diabetic chronic kidney disease; I12.9 Hypertensive chronic kidney disease with stage 1 through stage 4 chronic kidney disease, or unspecified chronic kidney disease; N18.9 Chronic kidney disease, unspecified; E78.5 Hyperlipidemia, unspecified

== ENCOUNTER → 2024-05-04 | Outpatient (CLI) | payer OTHER | END | disposition home or self-care (01) | LOC: WOUNDCARE 01:49 | PROVIDERS: ATTEND Nurse Practitioner Family | DX: E11.621 Type 2 diabetes mellitus with foot ulcer (principal); L97.514 Non-pressure chronic ulcer of other part of right foot with necrosis of bone; E11.51 Type 2 diabetes mellitus with diabetic peripheral angiopathy without gangrene; E11.69 Type 2 diabetes mellitus with other specified complication; M86.9 Osteomyelitis, unspecified; E11.22 Type 2 diabetes mellitus with diabetic chronic kidney disease; I12.9 Hypertensive chronic kidney disease with stage 1 through stage 4 chronic kidney disease, or unspecified chronic kidney disease; N18.9 Chronic kidney disease, unspecified; E78.5 Hyperlipidemia, unspecified; F17.290 Nicotine dependence, other tobacco product, uncomplicated; Z99.2 Dependence on renal dialysis; Z79.84 Long term (current) use of oral hypoglycemic drugs; Z79.899 Other long term (current) drug therapy ==

== ENCOUNTER → 2024-05-11 | Outpatient (CLI) | payer OTHER ==
[2024-05-11 12:27] LABS: POTASSIUM 4.8 mmol/L (3.4-5.1)
== END | disposition home or self-care (01) ==
LOC: WOUNDCARE 02:11
PROVIDERS: ATTEND Nurse Practitioner Family
DX: E11.621 Type 2 diabetes mellitus with foot ulcer (principal); L97.514 Non-pressure chronic ulcer of other part of right foot with necrosis of bone; E11.51 Type 2 diabetes mellitus with diabetic peripheral angiopathy without gangrene; E78.5 Hyperlipidemia, unspecified; E11.69 Type 2 diabetes mellitus with other specified complication; M86.9 Osteomyelitis, unspecified; E11.22 Type 2 diabetes mellitus with diabetic chronic kidney disease; I12.9 Hypertensive chronic kidney disease with stage 1 through stage 4 chronic kidney disease, or unspecified chronic kidney disease; N18.9 Chronic kidney disease, unspecified; Z99.2 Dependence on renal dialysis

== ENCOUNTER 2024-05-18 12:11 | Inpatient (IN) | payer OTHER ==
[2024-05-18] VITALS (7 sets, daily range): BP systolic 118–129; BP diastolic 60–74
[~2024-05-18] VITALS: Ht 172.7 cm; Wt 99.5 kg
[2024-05-18] MEDS ORDERED: NIFEDIPINE ER90 M1 PO (12:31)
[2024-05-18 12:58] LABS: BASO # 0.1 10*3/uL (0.0-0.1); BASO % 0.9 % (0.0-1.0); EOS # 0.3 10*3/uL (0.0-0.4); HEMATOCRIT 26.8 % (42.0-52.0); LYMPH % 19.3 % (27.0-41.0); MEAN CELL VOLUME 82.2 fl (80.0-94.0); MEAN CORPUSCULAR HGB 26.1 pg (27.0-31.0); MEAN CORPUSCULAR HGB CONC 31.7 g/dl (33.0-37.0); MEAN PLATELET VOLUME 9.6 fl (9.6-12.3); MONO # 0.4 10*3/uL (0.1-1.0); MONO % 7.5 % (3.0-9.0); NEUT # 3.6 10*3/uL (2.3-7.9); NEUT % 67.1 % (47.0-73.0); PLATELET COUNT AUTOMATED 349 10*3/uL (130-400); RED BLOOD COUNT 3.26 10*6/uL (4.50-5.90); RED CELL DISTRI WIDTH 13.5 % (0-14.5); WHITE BLOOD COUNT 5.4 10*3/uL (4.8-10.8)
[2024-05-18 13:20] LABS: ACT PARTIAL THROMBO TIME 35.6 SECONDS (20.0-32.1)
[2024-05-18 13:21] LABS: POTASSIUM 4.8 mmol/L (3.4-5.1); TOTAL PROTEIN 5.8 gm/dL (6.0-8.0)
[2024-05-18] MEDS ORDERED: FUROSEMIDE 40 MG/4 ML VIAL IV ONE (14:10)
[2024-05-18] MEDS ORDERED: ACETAMINOPHEN 650 MG SUPP R PRN (14:50)
[2024-05-18] MEDS ORDERED: Magnesium Hydroxide 30 ML UDC PO PRN (14:50)
[2024-05-18] MEDS ORDERED: MORPHINE Sulfate 2 MG/ML SYR IV PRN (14:50)
[2024-05-18] MEDS ORDERED: ACETAMINOPHEN 325 MG TAB PO PRN (14:50)
[2024-05-18] MEDS ORDERED: Ondansetron Hydrochloride 4 MG/2 ML VIAL IV PRN (14:50)
[2024-05-18] MEDS ORDERED: BISACODYL 5 MG TAB PO PRN (14:50)
[2024-05-18] MEDS ORDERED: BISACODYL 10 MG SUPP R PRN (14:50)
[2024-05-19 03:08] VITALS: BP 132/70
[2024-05-19 06:24] LABS: BASO % 0.7 % (0.0-1.0); EOS # 0.2 10*3/uL (0.0-0.4); EOS % 3.7 % (1.0-4.0); HEMATOCRIT 28.2 % (42.0-52.0); LYMPH # 1.1 10*3/uL (1.3-4.4); LYMPH % 19.2 % (27.0-41.0); MEAN CELL VOLUME 81.5 fl (80.0-94.0); MEAN CORPUSCULAR HGB 26.3 pg (27.0-31.0); MEAN CORPUSCULAR HGB CONC 32.3 g/dl (33.0-37.0); MEAN PLATELET VOLUME 9.8 fl (9.6-12.3); MONO # 0.5 10*3/uL (0.1-1.0); MONO % 8.5 % (3.0-9.0); NEUT # 3.8 10*3/uL (2.3-7.9); NEUT % 67.7 % (47.0-73.0); PLATELET COUNT AUTOMATED 387 10*3/uL (130-400); RED BLOOD COUNT 3.46 10*6/uL (4.50-5.90); RED CELL DISTRI WIDTH 13.6 % (0-14.5); WHITE BLOOD COUNT 5.6 10*3/uL (4.8-10.8)
[2024-05-19 06:43] LABS: ACT PARTIAL THROMBO TIME 24.8 SECONDS (20.0-32.1)
[2024-05-19 06:58] VITALS: BP 128/63
[2024-05-19 07:05] LABS: FREE T4 1.03 ng/dl (0.89-1.76); POTASSIUM 4.9 mmol/L (3.4-5.1); TOTAL PROTEIN 5.9 gm/dL (6.0-8.0)
[2024-05-19 08:35] LABS: VITAMIN D, 25-HYDROXY 26.3 ng/mL (30-100)
[2024-05-19] MEDS ORDERED: Labetalol Hydrochloride 100 MG TAB PO SCH ×2 (08:41→10:00)
[2024-05-19 09:19] VITALS: BP 134/64
[2024-05-19] MEDS ORDERED: FUROSEMIDE 40 MG/4 ML VIAL IV SCH (10:00)
[2024-05-19] MEDS ORDERED: SPIRONOLACTONE 25 MG TAB PO SCH (10:00)
[2024-05-19] MEDS ORDERED: MAGNESIUM OXIDE 400 MG TAB PO SCH (10:00)
[2024-05-19] MEDS ORDERED: Vitamin D 1,000 IU TAB (25 MCG) PO SCH (10:00)
[2024-05-19] MEDS ORDERED: Enoxaparin Sodium 40 MG/0.4 ML SYR SC SCH (10:00)
[2024-05-19] MEDS ORDERED: FERROUS SULFATE 325 MG TAB PO SCH (10:00)
[2024-05-19 13:00] LABS: URINE CREATININE RANDOM 93.38 mg/dL
[2024-05-19 17:30] VITALS: BP 135/72
[2024-05-19] MEDS ORDERED: ATORVASTATIN CALCIUM 40 MG TABLET PO SCH (22:00)
[2024-05-20] VITALS: BP 142/74
[2024-05-20 07:00] LABS: BASO % 0.7 % (0.0-1.0); EOS # 0.2 10*3/uL (0.0-0.4); EOS % 5.2 % (1.0-4.0); HEMATOCRIT 27.9 % (42.0-52.0); LYMPH # 0.9 10*3/uL (1.3-4.4); LYMPH % 19.5 % (27.0-41.0); MEAN CELL VOLUME 84.3 fl (80.0-94.0); MEAN CORPUSCULAR HGB 26.3 pg (27.0-31.0); MEAN CORPUSCULAR HGB CONC 31.2 g/dl (33.0-37.0); MONO # 0.4 10*3/uL (0.1-1.0); MONO % 8.3 % (3.0-9.0); NEUT % 66.1 % (47.0-73.0); PLATELET COUNT AUTOMATED 372 10*3/uL (130-400); RED BLOOD COUNT 3.31 10*6/uL (4.50-5.90); RED CELL DISTRI WIDTH 13.7 % (0-14.5); WHITE BLOOD COUNT 4.5 10*3/uL (4.8-10.8)
[2024-05-20 08:00] VITALS: BP 144/79
[2024-05-20] MEDS ORDERED: AMMONIUM LACTATE 12% LOTION T SCH (10:00)
[2024-05-20 11:20] VITALS: BP 150/69
[2024-05-20 16:00] VITALS: BP 140/72
[2024-05-20] MEDS ORDERED: SODIUM BICARBONATE 650 MG TAB PO SCH (18:00)
[2024-05-20 20:00] VITALS: BP 168/73
[2024-05-21] VITALS: BP 174/80
[2024-05-21 06:04] LABS: BASO % 0.4 % (0.0-1.0); EOS # 0.2 10*3/uL (0.0-0.4); EOS % 4.4 % (1.0-4.0); HEMATOCRIT 26.8 % (42.0-52.0); LYMPH # 1.1 10*3/uL (1.3-4.4); LYMPH % 22.9 % (27.0-41.0); MEAN CELL VOLUME 84.5 fl (80.0-94.0); MEAN CORPUSCULAR HGB 26.2 pg (27.0-31.0); MEAN PLATELET VOLUME 9.8 fl (9.6-12.3); MONO # 0.6 10*3/uL (0.1-1.0); MONO % 12.5 % (3.0-9.0); NEUT % 59.8 % (47.0-73.0); PLATELET COUNT AUTOMATED 332 10*3/uL (130-400); RED BLOOD COUNT 3.17 10*6/uL (4.50-5.90); RED CELL DISTRI WIDTH 13.9 % (0-14.5)
[2024-05-21 07:02] LABS: POTASSIUM 4.7 mmol/L (3.4-5.1)
[2024-05-21 08:00] VITALS: BP 172/86
[2024-05-21 11:47] VITALS: BP 160/72
[2024-05-21] MEDS ORDERED: LEPTOSPERMUM HONEY 0.5 OZ TUBE T ONE (11:57)
[2024-05-21] MEDS ORDERED: PERFLUTREN PROTEIN-A MICROSPHR 3 ML VIAL IV ONE (14:23)
[2024-05-21 16:04] VITALS: BP 174/76
[2024-05-21 20:11] VITALS: BP 187/84
[2024-05-21] MEDS ORDERED: hydrALAZINE hydrochloride 25 MG TAB PO SCH (22:00)
[2024-05-22] VITALS: BP 178/70
[2024-05-22 06:20] LABS: POTASSIUM 4.4 mmol/L (3.4-5.1)
[2024-05-22 06:21] LABS: BASO % 0.7 % (0.0-1.0); EOS # 0.2 10*3/uL (0.0-0.4); EOS % 4.9 % (1.0-4.0); HEMATOCRIT 27.3 % (42.0-52.0); LYMPH # 1.2 10*3/uL (1.3-4.4); LYMPH % 27.8 % (27.0-41.0); MEAN CELL VOLUME 85.3 fl (80.0-94.0); MEAN CORPUSCULAR HGB 25.6 pg (27.0-31.0); MEAN PLATELET VOLUME 9.8 fl (9.6-12.3); MONO # 0.6 10*3/uL (0.1-1.0); MONO % 13.5 % (3.0-9.0); NEUT # 2.4 10*3/uL (2.3-7.9); NEUT % 52.9 % (47.0-73.0); PLATELET COUNT AUTOMATED 327 10*3/uL (130-400); WHITE BLOOD COUNT 4.5 10*3/uL (4.8-10.8)
[2024-05-22 08:00] VITALS: BP 170/64
[2024-05-22 11:57] VITALS: BP 151/69
[2024-05-22 16:00] VITALS: BP 161/78; BP 162/78
[2024-05-22 20:00] VITALS: BP 191/79
[2024-05-23] VITALS: BP 160/68; BP 180/80
[2024-05-23 06:23] LABS: BASO % 0.4 % (0.0-1.0); EOS # 0.3 10*3/uL (0.0-0.4); EOS % 5.5 % (1.0-4.0); HEMATOCRIT 27.3 % (42.0-52.0); LYMPH # 1.3 10*3/uL (1.3-4.4); LYMPH % 26.3 % (27.0-41.0); MEAN CORPUSCULAR HGB 25.9 pg (27.0-31.0); MEAN CORPUSCULAR HGB CONC 30.4 g/dl (33.0-37.0); MEAN PLATELET VOLUME 10.1 fl (9.6-12.3); MONO # 0.6 10*3/uL (0.1-1.0); MONO % 11.3 % (3.0-9.0); NEUT # 2.8 10*3/uL (2.3-7.9); NEUT % 56.1 % (47.0-73.0); PLATELET COUNT AUTOMATED 316 10*3/uL (130-400); RED BLOOD COUNT 3.21 10*6/uL (4.50-5.90)
[2024-05-23 06:53] LABS: POTASSIUM 4.1 mmol/L (3.4-5.1)
[2024-05-23 08:00] VITALS: BP 165/71; BP 185/77
[2024-05-23 11:55] VITALS: BP 166/68
[2024-05-23 16:00] VITALS: BP 152/98
[2024-05-23 20:00] VITALS: BP 182/76
[2024-05-24] VITALS: BP 152/63
[2024-05-24 06:14] LABS: POTASSIUM 4.1 mmol/L (3.4-5.1)
[2024-05-24 06:17] LABS: BASO % 0.5 % (0.0-1.0); EOS # 0.4 10*3/uL (0.0-0.4); EOS % 6.5 % (1.0-4.0); HEMATOCRIT 26.1 % (42.0-52.0); LYMPH # 1.2 10*3/uL (1.3-4.4); LYMPH % 20.7 % (27.0-41.0); MEAN CELL VOLUME 82.3 fl (80.0-94.0); MEAN CORPUSCULAR HGB 25.9 pg (27.0-31.0); MEAN CORPUSCULAR HGB CONC 31.4 g/dl (33.0-37.0); MEAN PLATELET VOLUME 9.6 fl (9.6-12.3); MONO # 0.6 10*3/uL (0.1-1.0); MONO % 10.2 % (3.0-9.0); NEUT # 3.6 10*3/uL (2.3-7.9); NEUT % 61.9 % (47.0-73.0); PLATELET COUNT AUTOMATED 315 10*3/uL (130-400); RED BLOOD COUNT 3.17 10*6/uL (4.50-5.90); WHITE BLOOD COUNT 5.9 10*3/uL (4.8-10.8)
[2024-05-24 08:00] VITALS: BP 164/68
[2024-05-24] MEDS ORDERED: NIFEdipine 30 MG TAB PO SCH (10:00)
[2024-05-24 12:00] VITALS: BP 151/70
[2024-05-24 16:00] VITALS: BP 119/60
[2024-05-24 20:00] VITALS: BP 113/59
[2024-05-25 00:05] VITALS: BP 115/60
[2024-05-25 06:53] LABS: BASO % 0.7 % (0.0-1.0); EOS # 0.3 10*3/uL (0.0-0.4); EOS % 5.8 % (1.0-4.0); HEMATOCRIT 27.7 % (42.0-52.0); LYMPH # 1.4 10*3/uL (1.3-4.4); LYMPH % 24.2 % (27.0-41.0); MEAN CELL VOLUME 82.2 fl (80.0-94.0); MEAN CORPUSCULAR HGB 26.1 pg (27.0-31.0); MEAN CORPUSCULAR HGB CONC 31.8 g/dl (33.0-37.0); MONO # 0.5 10*3/uL (0.1-1.0); MONO % 9.1 % (3.0-9.0); NEUT # 3.5 10*3/uL (2.3-7.9); PLATELET COUNT AUTOMATED 349 10*3/uL (130-400); RED BLOOD COUNT 3.37 10*6/uL (4.50-5.90); WHITE BLOOD COUNT 5.8 10*3/uL (4.8-10.8)
[2024-05-25 07:21] LABS: POTASSIUM 4.2 mmol/L (3.4-5.1)
[2024-05-25 08:00] VITALS: BP 120/56
[2024-05-25 12:00] VITALS: BP 106/48
[2024-05-25 16:00] VITALS: BP 121/54
[2024-05-25 20:00] VITALS: BP 121/60
[2024-05-25 23:23] LABS: BILIRUBIN Negative (Negative); BLOOD Negative (Negative); CLARITY Cloudy (Clear); COLOR Yellow (Yellow); GLUCOSE 2+ (Negative); KETONE Trace (Negative); LEUKO ESTERASE Negative (Negative); NITRITE Negative (Negative); PH 5.5 (4.5-8.0); SPECIFIC GRAVITY 1.025 (1.001-1.030); UROBILINOGEN 0.2 E.U./dl (0.0-1.0)
[2024-05-25 23:43] LABS: URINE CREATININE RANDOM 148.26 mg/dL
[2024-05-25 23:51] LABS: BACTERIA TRACE
[2024-05-26 00:06] VITALS: BP 118/55
[2024-05-26 07:19] LABS: POTASSIUM 4.4 mmol/L (3.4-5.1)
[2024-05-26 08:00] VITALS: BP 122/54
[2024-05-26] MEDS ORDERED: LISINOPRIL 20 MG TAB PO SCH (10:00)
[2024-05-26] MEDS ORDERED: FUROSEMIDE 20 MG TAB PO SCH (10:00)
[2024-05-26 12:00] VITALS: BP 139/61
[2024-05-26 16:00] VITALS: BP 128/58
[2024-05-26 20:00] VITALS: BP 148/63
[2024-05-27] VITALS: BP 154/63
[2024-05-27 05:07] LABS: HBSAG Negative (Negative); HEP B CORE AB, IGM Negative (Negative); HEPATITIS C ANTIBODY Non Reactive (Non Reactive)
[2024-05-27 07:28] LABS: POTASSIUM 4.5 mmol/L (3.4-5.1)
[2024-05-27 08:00] VITALS: BP 165/66
[2024-05-27 12:00] VITALS: BP 174/73
[2024-05-27] MEDS ORDERED: LISINOPRIL 20 MG TAB PO ONE (13:05)
[2024-05-27] MEDS ORDERED: LISINOPRIL40 MG PO (14:15)
[2024-05-27 15:07] LABS: FREE KAPPA LIGHT CHAINS 59.6 mg/L (3.3-19.4); FREE LAMBDA LIGHT CHAINS 43.4 mg/L (5.7-26.3); KAPPA/LAMBDA RATIO 1.37 (0.26-1.65)
[2024-05-28] MEDS ORDERED: LISINOPRIL 40 MG TAB PO SCH (10:00)
[2024-05-28 11:09] LABS: ALBUMIN 2.4 g/dL (2.9-4.4); ALPHA-1-GLOBULIN 0.3 g/dL (0.0-0.4); ALPHA-2-GLOBULIN 0.9 g/dL (0.4-1.0); BETA GLOBULIN 0.9 g/dL (0.7-1.3); GAMMA GLOBULIN 0.4 g/dL (0.4-1.8); GLOBULIN, TOTAL 2.5 g/dL (2.2-3.9); TOTAL PROTEIN, SERUM 4.9 g/dL (6.0-8.5)
[2024-05-28 14:09] LABS: ALBUMIN, URINE RANDOM 59.6 % (.); ALPHA-1-GLOBULIN, URINE 3.6 % (.); ALPHA-2-GLOBULIN, URINE 10.6 % (.); GAMMA GLOBULIN, URINE 9.1 % (.); M-SPIKE % Comment: % (Not Observed)
[2024-05-28 14:12] LABS: PROTEIN,TOTAL - URINE RANDOM 1453.9 mg/dL (Not Estab.)
[2024-06-04] MEDS ORDERED: LASIX40 MG PO (11:32)
[2024-06-04] MEDS ORDERED: LISINOPRIL10 M1 PO (11:32)
[2024-06-04] MEDS ORDERED: APRESOLINE25 MG PO (11:32)
== END 2024-05-27 16:24 | disposition home health service (06) | DRG 682 ==
LOC: ED 12:11 → 4E 14:10 → EDHOLD 14:10 → ED 14:12 → EDHOLD 14:13 → 4E 15:00
PROVIDERS: Emergency Medicine; Internal Medicine; Internal Medicine Nephrology; Nurse Practitioner Family; Student in an Organized Health Care Education/Training Program; ADMIT Internal Medicine; ATTEND Internal Medicine
PROC: 0HBMXZZ Excision of Right Foot Skin, External Approach (ICD-10-PCS; 2024-05-21)
PROC: 0HBMXZZ Excision of Right Foot Skin, External Approach (ICD-10-PCS; principal; 2024-05-25)
DX: N17.0 Acute kidney failure with tubular necrosis (principal); E43 Unspecified severe protein-calorie malnutrition; I50.33 Acute on chronic diastolic (congestive) heart failure; E87.1 Hypo-osmolality and hyponatremia; I13.0 Hypertensive heart and chronic kidney disease with heart failure and stage 1 through stage 4 chronic kidney disease, or unspecified chronic kidney disease; J90 Pleural effusion, not elsewhere classified; J98.11 Atelectasis; N18.31 Chronic kidney disease, stage 3a; E11.65 Type 2 diabetes mellitus with hyperglycemia; N18.9 Chronic kidney disease, unspecified; D64.9 Anemia, unspecified; E11.22 Type 2 diabetes mellitus with diabetic chronic kidney disease; Z79.4 Long term (current) use of insulin; I27.20 Pulmonary hypertension, unspecified; F17.200 Nicotine dependence, unspecified, uncomplicated; L89.899 Pressure ulcer of other site, unspecified stage; I08.1 Rheumatic disorders of both mitral and tricuspid valves; Z88.8 Allergy status to other drugs, medicaments and biological substances; Z79.899 Other long term (current) drug therapy; Z68.33 Body mass index [BMI] 33.0-33.9, adult

== ENCOUNTER → 2024-06-08 | Outpatient (CLI) | payer OTHER, MEDICAID ==
[2024-06-08] VITALS (11 sets, daily range): BP systolic 189–227; BP diastolic 92–114
[~2024-06-08] MED LIST changes: +LISINOPRIL10 M1 PO; +LISINOPRIL40 MG PO; +Lidocaine Hydrochloride 5 ML AMP ONE; +NIFEDIPINE ER90 M1 PO; +SODIUM BICARBONATE 4.2% 5 ML VIAL ONE
[2024-06-08 13:29] LABS: BASO # 0.1 10*3/uL (0.0-0.1); BASO % 0.8 % (0.0-1.0); EOS # 0.5 10*3/uL (0.0-0.4); EOS % 6.4 % (1.0-4.0); HEMATOCRIT 28.5 % (42.0-52.0); LYMPH # 0.9 10*3/uL (1.3-4.4); LYMPH % 12.3 % (27.0-41.0); MEAN CELL VOLUME 83.8 fl (80.0-94.0); MEAN CORPUSCULAR HGB 25.6 pg (27.0-31.0); MEAN CORPUSCULAR HGB CONC 30.5 g/dl (33.0-37.0); MEAN PLATELET VOLUME 9.8 fl (9.6-12.3); MONO # 0.8 10*3/uL (0.1-1.0); MONO % 11.1 % (3.0-9.0); NEUT # 4.9 10*3/uL (2.3-7.9); NEUT % 69.1 % (47.0-73.0); PLATELET COUNT AUTOMATED 360 10*3/uL (130-400); RED CELL DISTRI WIDTH 13.8 % (0-14.5); WHITE BLOOD COUNT 7.1 10*3/uL (4.8-10.8)
[2024-06-08 15:42] LABS: BASO # 0.1 10*3/uL (0.0-0.1); BASO % 0.7 % (0.0-1.0); EOS # 0.5 10*3/uL (0.0-0.4); EOS % 6.2 % (1.0-4.0); HEMATOCRIT 31.2 % (42.0-52.0); LYMPH # 1.1 10*3/uL (1.3-4.4); MEAN CELL VOLUME 83.4 fl (80.0-94.0); MEAN CORPUSCULAR HGB 25.4 pg (27.0-31.0); MEAN CORPUSCULAR HGB CONC 30.4 g/dl (33.0-37.0); MEAN PLATELET VOLUME 9.3 fl (9.6-12.3); MONO # 0.8 10*3/uL (0.1-1.0); MONO % 9.2 % (3.0-9.0); NEUT # 5.8 10*3/uL (2.3-7.9); NEUT % 70.8 % (47.0-73.0); PLATELET COUNT AUTOMATED 377 10*3/uL (130-400); RED BLOOD COUNT 3.74 10*6/uL (4.50-5.90); RED CELL DISTRI WIDTH 13.9 % (0-14.5); WHITE BLOOD COUNT 8.1 10*3/uL (4.8-10.8)
== END | disposition home or self-care (01) ==
LOC: CT 00:26
PROVIDERS: Radiology Diagnostic Radiology; ATTEND Internal Medicine Nephrology
DX: R80.8 Other proteinuria (principal); I11.0 Hypertensive heart disease with heart failure; I50.9 Heart failure, unspecified; E11.9 Type 2 diabetes mellitus without complications; N17.9 Acute kidney failure, unspecified; Z98.890 Other specified postprocedural states

== ENCOUNTER → 2024-06-15 | Outpatient (CLI) | payer OTHER, MEDICAID ==
[~2024-06-15] MED LIST changes: -Lidocaine Hydrochloride 5 ML AMP ONE; -SODIUM BICARBONATE 4.2% 5 ML VIAL ONE
[2024-06-15 17:41] LABS: BASO # 0.1 10*3/uL (0.0-0.1); BASO % 0.9 % (0.0-1.0); EOS # 0.5 10*3/uL (0.0-0.4); HEMATOCRIT 28.1 % (42.0-52.0); LYMPH # 1.2 10*3/uL (1.3-4.4); LYMPH % 14.9 % (27.0-41.0); MEAN CELL VOLUME 81.7 fl (80.0-94.0); MEAN CORPUSCULAR HGB CONC 30.6 g/dl (33.0-37.0); MEAN PLATELET VOLUME 9.6 fl (9.6-12.3); MONO # 0.7 10*3/uL (0.1-1.0); MONO % 8.5 % (3.0-9.0); NEUT # 5.5 10*3/uL (2.3-7.9); NEUT % 69.3 % (47.0-73.0); PLATELET COUNT AUTOMATED 383 10*3/uL (130-400); RED BLOOD COUNT 3.44 10*6/uL (4.50-5.90); RED CELL DISTRI WIDTH 13.8 % (0-14.5)
[2024-06-15 18:01] LABS: POTASSIUM 4.5 mmol/L (3.4-5.1)
== END | disposition home or self-care (01) ==
LOC: WOUNDCARE 01:54 → LAB 02:33 → WOUNDCARE 02:33
PROVIDERS: ATTEND Nurse Practitioner Family
DX: E11.621 Type 2 diabetes mellitus with foot ulcer (principal); L97.514 Non-pressure chronic ulcer of other part of right foot with necrosis of bone; S80.822A Blister (nonthermal), left lower leg, initial encounter; S80.821A Blister (nonthermal), right lower leg, initial encounter; E11.51 Type 2 diabetes mellitus with diabetic peripheral angiopathy without gangrene; E11.69 Type 2 diabetes mellitus with other specified complication; M86.9 Osteomyelitis, unspecified; E11.22 Type 2 diabetes mellitus with diabetic chronic kidney disease; I12.9 Hypertensive chronic kidney disease with stage 1 through stage 4 chronic kidney disease, or unspecified chronic kidney disease; N18.9 Chronic kidney disease, unspecified; E78.5 Hyperlipidemia, unspecified; F17.200 Nicotine dependence, unspecified, uncomplicated; Z99.2 Dependence on renal dialysis; Z79.84 Long term (current) use of oral hypoglycemic drugs; Z79.899 Other long term (current) drug therapy; X58.XXXA Exposure to other specified factors, initial encounter; Y93.89 Activity, other specified; Y92.89 Other specified places as the place of occurrence of the external cause; Y99.8 Other external cause status

== ENCOUNTER → 2024-06-22 | Outpatient (CLI) | payer OTHER, MEDICAID | END | disposition home or self-care (01) | LOC: WOUNDCARE 00:51 | PROVIDERS: ATTEND Nurse Practitioner Family | DX: E11.621 Type 2 diabetes mellitus with foot ulcer (principal); L97.514 Non-pressure chronic ulcer of other part of right foot with necrosis of bone; S80.822D Blister (nonthermal), left lower leg, subsequent encounter; S80.821D Blister (nonthermal), right lower leg, subsequent encounter; E11.51 Type 2 diabetes mellitus with diabetic peripheral angiopathy without gangrene; E11.69 Type 2 diabetes mellitus with other specified complication; M86.9 Osteomyelitis, unspecified; E11.22 Type 2 diabetes mellitus with diabetic chronic kidney disease; I12.9 Hypertensive chronic kidney disease with stage 1 through stage 4 chronic kidney disease, or unspecified chronic kidney disease; N18.9 Chronic kidney disease, unspecified; L60.2 Onychogryphosis; B35.1 Tinea unguium; E78.5 Hyperlipidemia, unspecified; F17.200 Nicotine dependence, unspecified, uncomplicated; Z99.2 Dependence on renal dialysis; Z79.84 Long term (current) use of oral hypoglycemic drugs; Z79.899 Other long term (current) drug therapy; X58.XXXD Exposure to other specified factors, subsequent encounter ==

== ENCOUNTER → 2024-06-29 | Outpatient (CLI) | payer OTHER, MEDICAID | END | disposition home or self-care (01) | LOC: WOUNDCARE 01:23 | PROVIDERS: ATTEND Nurse Practitioner Family | DX: E11.621 Type 2 diabetes mellitus with foot ulcer (principal); L97.514 Non-pressure chronic ulcer of other part of right foot with necrosis of bone; S80.822D Blister (nonthermal), left lower leg, subsequent encounter; S80.821D Blister (nonthermal), right lower leg, subsequent encounter; E11.51 Type 2 diabetes mellitus with diabetic peripheral angiopathy without gangrene; E11.69 Type 2 diabetes mellitus with other specified complication; M86.9 Osteomyelitis, unspecified; E11.22 Type 2 diabetes mellitus with diabetic chronic kidney disease; I12.9 Hypertensive chronic kidney disease with stage 1 through stage 4 chronic kidney disease, or unspecified chronic kidney disease; N18.9 Chronic kidney disease, unspecified; L60.2 Onychogryphosis; B35.1 Tinea unguium; E78.5 Hyperlipidemia, unspecified; F17.200 Nicotine dependence, unspecified, uncomplicated; Z99.2 Dependence on renal dialysis; Z79.84 Long term (current) use of oral hypoglycemic drugs; Z79.899 Other long term (current) drug therapy; X58.XXXD Exposure to other specified factors, subsequent encounter ==

== ENCOUNTER → 2024-07-06 | Outpatient (CLI) | payer OTHER, MEDICAID | END | disposition home or self-care (01) | LOC: WOUNDCARE 02:27 | PROVIDERS: ATTEND Nurse Practitioner Family | DX: E11.621 Type 2 diabetes mellitus with foot ulcer (principal); L97.514 Non-pressure chronic ulcer of other part of right foot with necrosis of bone; S80.822D Blister (nonthermal), left lower leg, subsequent encounter; S80.821D Blister (nonthermal), right lower leg, subsequent encounter; E11.51 Type 2 diabetes mellitus with diabetic peripheral angiopathy without gangrene; E78.5 Hyperlipidemia, unspecified; L60.2 Onychogryphosis; B35.1 Tinea unguium; E11.69 Type 2 diabetes mellitus with other specified complication; M86.9 Osteomyelitis, unspecified; E11.22 Type 2 diabetes mellitus with diabetic chronic kidney disease; I12.9 Hypertensive chronic kidney disease with stage 1 through stage 4 chronic kidney disease, or unspecified chronic kidney disease; N18.9 Chronic kidney disease, unspecified; Z99.2 Dependence on renal dialysis; X58.XXXD Exposure to other specified factors, subsequent encounter ==

== ENCOUNTER → 2024-07-13 | Outpatient (CLI) | payer OTHER, MEDICAID | END | disposition home or self-care (01) | LOC: WOUNDCARE 01:04 | PROVIDERS: ATTEND Nurse Practitioner Family | DX: E11.621 Type 2 diabetes mellitus with foot ulcer (principal); L97.514 Non-pressure chronic ulcer of other part of right foot with necrosis of bone; S80.822D Blister (nonthermal), left lower leg, subsequent encounter; S80.821D Blister (nonthermal), right lower leg, subsequent encounter; E11.51 Type 2 diabetes mellitus with diabetic peripheral angiopathy without gangrene; E11.69 Type 2 diabetes mellitus with other specified complication; M86.9 Osteomyelitis, unspecified; E11.22 Type 2 diabetes mellitus with diabetic chronic kidney disease; I12.9 Hypertensive chronic kidney disease with stage 1 through stage 4 chronic kidney disease, or unspecified chronic kidney disease; N18.9 Chronic kidney disease, unspecified; B35.1 Tinea unguium; L60.2 Onychogryphosis; E78.5 Hyperlipidemia, unspecified; F17.200 Nicotine dependence, unspecified, uncomplicated; Z99.2 Dependence on renal dialysis; Z79.84 Long term (current) use of oral hypoglycemic drugs; Z79.899 Other long term (current) drug therapy; X58.XXXD Exposure to other specified factors, subsequent encounter ==

== ENCOUNTER → 2024-07-20 | Outpatient (CLI) | payer OTHER, MEDICAID | END | disposition home or self-care (01) | LOC: WOUNDCARE 04:56 | PROVIDERS: ATTEND Nurse Practitioner Family | DX: E11.621 Type 2 diabetes mellitus with foot ulcer (principal); L97.514 Non-pressure chronic ulcer of other part of right foot with necrosis of bone; S80.822D Blister (nonthermal), left lower leg, subsequent encounter; S80.821D Blister (nonthermal), right lower leg, subsequent encounter; L60.2 Onychogryphosis; B35.1 Tinea unguium; E11.51 Type 2 diabetes mellitus with diabetic peripheral angiopathy without gangrene; E78.5 Hyperlipidemia, unspecified; E11.69 Type 2 diabetes mellitus with other specified complication; M86.9 Osteomyelitis, unspecified; E11.22 Type 2 diabetes mellitus with diabetic chronic kidney disease; I12.9 Hypertensive chronic kidney disease with stage 1 through stage 4 chronic kidney disease, or unspecified chronic kidney disease; N18.9 Chronic kidney disease, unspecified; X58.XXXD Exposure to other specified factors, subsequent encounter ==

== ENCOUNTER → 2024-07-27 | Outpatient (CLI) | payer OTHER, MEDICAID | END | disposition home or self-care (01) | LOC: WOUNDCARE 01:07 | PROVIDERS: ATTEND Nurse Practitioner Family | DX: E11.621 Type 2 diabetes mellitus with foot ulcer (principal); L97.514 Non-pressure chronic ulcer of other part of right foot with necrosis of bone; S80.822D Blister (nonthermal), left lower leg, subsequent encounter; S80.821D Blister (nonthermal), right lower leg, subsequent encounter; E11.51 Type 2 diabetes mellitus with diabetic peripheral angiopathy without gangrene; E11.69 Type 2 diabetes mellitus with other specified complication; M86.9 Osteomyelitis, unspecified; E11.22 Type 2 diabetes mellitus with diabetic chronic kidney disease; I12.9 Hypertensive chronic kidney disease with stage 1 through stage 4 chronic kidney disease, or unspecified chronic kidney disease; N18.9 Chronic kidney disease, unspecified; L60.2 Onychogryphosis; B35.1 Tinea unguium; E78.5 Hyperlipidemia, unspecified; F17.200 Nicotine dependence, unspecified, uncomplicated; Z99.2 Dependence on renal dialysis; Z79.84 Long term (current) use of oral hypoglycemic drugs; Z79.899 Other long term (current) drug therapy; X58.XXXD Exposure to other specified factors, subsequent encounter ==

== ENCOUNTER → 2024-08-03 | Outpatient (CLI) | payer OTHER, MEDICAID | END | disposition home or self-care (01) | LOC: WOUNDCARE 01:33 | PROVIDERS: ATTEND Nurse Practitioner Family | DX: E11.621 Type 2 diabetes mellitus with foot ulcer (principal); L97.514 Non-pressure chronic ulcer of other part of right foot with necrosis of bone; S80.822D Blister (nonthermal), left lower leg, subsequent encounter; S80.821D Blister (nonthermal), right lower leg, subsequent encounter; E11.51 Type 2 diabetes mellitus with diabetic peripheral angiopathy without gangrene; E11.69 Type 2 diabetes mellitus with other specified complication; M86.9 Osteomyelitis, unspecified; E11.22 Type 2 diabetes mellitus with diabetic chronic kidney disease; I12.9 Hypertensive chronic kidney disease with stage 1 through stage 4 chronic kidney disease, or unspecified chronic kidney disease; N18.9 Chronic kidney disease, unspecified; L60.2 Onychogryphosis; B35.1 Tinea unguium; E78.5 Hyperlipidemia, unspecified; F17.200 Nicotine dependence, unspecified, uncomplicated; Z99.2 Dependence on renal dialysis; Z79.84 Long term (current) use of oral hypoglycemic drugs; Z79.899 Other long term (current) drug therapy; X58.XXXD Exposure to other specified factors, subsequent encounter ==

== ENCOUNTER → 2024-08-10 | Outpatient (CLI) | payer OTHER, MEDICAID | END | disposition home or self-care (01) | LOC: WOUNDCARE 02:13 | PROVIDERS: ATTEND Nurse Practitioner Family | DX: E11.621 Type 2 diabetes mellitus with foot ulcer (principal); L97.514 Non-pressure chronic ulcer of other part of right foot with necrosis of bone; E11.51 Type 2 diabetes mellitus with diabetic peripheral angiopathy without gangrene; E11.69 Type 2 diabetes mellitus with other specified complication; M86.9 Osteomyelitis, unspecified; E11.22 Type 2 diabetes mellitus with diabetic chronic kidney disease; I12.9 Hypertensive chronic kidney disease with stage 1 through stage 4 chronic kidney disease, or unspecified chronic kidney disease; N18.9 Chronic kidney disease, unspecified; L60.2 Onychogryphosis; B35.1 Tinea unguium; E78.5 Hyperlipidemia, unspecified; F17.200 Nicotine dependence, unspecified, uncomplicated; Z99.2 Dependence on renal dialysis; Z79.84 Long term (current) use of oral hypoglycemic drugs; Z79.899 Other long term (current) drug therapy ==

== ENCOUNTER → 2024-08-24 | Outpatient (CLI) | payer OTHER, MEDICAID ==
[2024-08-24 13:35] LABS: BASO # 0.1 10*3/uL (0.0-0.1); BASO % 0.7 % (0.0-1.0); EOS # 0.6 10*3/uL (0.0-0.4); EOS % 9.1 % (1.0-4.0); MEAN CORPUSCULAR HGB 24.9 pg (27.0-31.0); MEAN PLATELET VOLUME 9.4 fl (9.6-12.3); MONO # 0.6 10*3/uL (0.1-1.0); MONO % 9.4 % (3.0-9.0); NEUT # 4.2 10*3/uL (2.3-7.9); NEUT % 60.8 % (47.0-73.0); PLATELET COUNT AUTOMATED 308 10*3/uL (130-400); RED BLOOD COUNT 2.89 10*6/uL (4.50-5.90); RED CELL DISTRI WIDTH 17.2 % (0-14.5); WHITE BLOOD COUNT 6.8 10*3/uL (4.8-10.8)
[2024-08-24 13:38] LABS: BILIRUBIN Negative (Negative); BLOOD Negative (Negative); CLARITY Clear (Clear); COLOR Yellow (Yellow); GLUCOSE Trace (Negative); KETONE Negative (Negative); LEUKO ESTERASE Negative (Negative); NITRITE Negative (Negative); PH 5.5 (4.5-8.0); UROBILINOGEN 0.2 E.U./dl (0.0-1.0)
[2024-08-24 14:02] LABS: BACTERIA 1+; MUCOUS 1+; RBC 0-2 rbc/hpf (0-2)
[2024-08-24 14:02] LABS: VITAMIN D, 25-HYDROXY 27.5 ng/mL (30-100)
[2024-08-24 14:06] LABS: POTASSIUM 6.2 mmol/L (3.4-5.1)
== END | disposition home or self-care (01) ==
LOC: LAB 12:56
PROVIDERS: Internal Medicine Nephrology; ATTEND Nurse Practitioner Family
DX: E11.22 Type 2 diabetes mellitus with diabetic chronic kidney disease (principal); N18.9 Chronic kidney disease, unspecified; N17.9 Acute kidney failure, unspecified; N25.81 Secondary hyperparathyroidism of renal origin; D63.1 Anemia in chronic kidney disease

== ENCOUNTER → 2024-10-08 | Outpatient (CLI) | payer OTHER, MEDICAID ==
[2024-10-08 13:29] LABS: POTASSIUM 4.7 mmol/L (3.4-5.1)
== END | disposition home or self-care (01) ==
LOC: LAB 12:41
PROVIDERS: ATTEND Nurse Practitioner Family
DX: N17.9 Acute kidney failure, unspecified (principal)

== ENCOUNTER 2025-01-11 17:05 | Emergency (ER) | payer OTHER ==
[~2025-01-11] VITALS: Ht 172.7 cm; Wt 83.9 kg
== END 2025-01-11 17:43 | disposition home or self-care (01) ==
LOC: ED 17:05
DX: I13.0 Hypertensive heart and chronic kidney disease with heart failure and stage 1 through stage 4 chronic kidney disease, or unspecified chronic kidney disease (principal); E11.22 Type 2 diabetes mellitus with diabetic chronic kidney disease; N18.9 Chronic kidney disease, unspecified; I50.9 Heart failure, unspecified; Z88.2 Allergy status to sulfonamides; Z79.899 Other long term (current) drug therapy; Z98.890 Other specified postprocedural states

== ENCOUNTER → 2025-01-11 | Outpatient (CLI) | payer OTHER | END | disposition home or self-care (01) | LOC: RAD 14:49 | PROVIDERS: ATTEND Nurse Practitioner Primary Care | DX: M54.9 Dorsalgia, unspecified (principal) ==

== ENCOUNTER → 2025-01-26 | Outpatient (CLI) | payer OTHER ==
[2025-01-26 13:52] LABS: BASO % 0.2 % (0.0-1.0); EOS # 0.3 10*3/uL (0.0-0.4); EOS % 2.9 % (1.0-4.0); HEMATOCRIT 24.2 % (42.0-52.0); MEAN CELL VOLUME 77.6 fl (80.0-94.0); MEAN CORPUSCULAR HGB 23.7 pg (27.0-31.0); MEAN CORPUSCULAR HGB CONC 30.6 g/dl (33.0-37.0); MEAN PLATELET VOLUME 9.9 fl (9.6-12.3); MONO # 1.1 10*3/uL (0.1-1.0); MONO % 12.3 % (3.0-9.0); NEUT # 7.2 10*3/uL (2.3-7.9); NEUT % 79.7 % (47.0-73.0); PLATELET COUNT AUTOMATED 254 10*3/uL (130-400); RED BLOOD COUNT 3.12 10*6/uL (4.50-5.90); RED CELL DISTRI WIDTH 17.2 % (0-14.5); WHITE BLOOD COUNT 9.1 10*3/uL (4.8-10.8)
[2025-01-26 14:42] LABS: POTASSIUM 4.4 mmol/L (3.4-5.1); TOTAL PROTEIN 6.1 gm/dL (6.0-8.0)
== END | disposition home or self-care (01) ==
LOC: LAB 13:18
PROVIDERS: ATTEND Nurse Practitioner Primary Care
DX: E11.22 Type 2 diabetes mellitus with diabetic chronic kidney disease (principal)

== ENCOUNTER → 2025-02-17 | Outpatient (CLI) | payer OTHER | END | disposition home or self-care (01) | LOC: WOUNDCARE 03:35 | PROVIDERS: ATTEND Nurse Practitioner Family | DX: L20.9 Atopic dermatitis, unspecified (principal); L60.2 Onychogryphosis; B35.1 Tinea unguium; I12.0 Hypertensive chronic kidney disease with stage 5 chronic kidney disease or end stage renal disease; E11.22 Type 2 diabetes mellitus with diabetic chronic kidney disease; N18.6 End stage renal disease; E11.69 Type 2 diabetes mellitus with other specified complication; M86.9 Osteomyelitis, unspecified; E11.51 Type 2 diabetes mellitus with diabetic peripheral angiopathy without gangrene; I87.2 Venous insufficiency (chronic) (peripheral); Z98.890 Other specified postprocedural states; E78.5 Hyperlipidemia, unspecified; Z99.2 Dependence on renal dialysis; Z86.16 Personal history of COVID-19; F17.290 Nicotine dependence, other tobacco product, uncomplicated; Z79.899 Other long term (current) drug therapy ==

== ENCOUNTER → 2025-02-22 | Outpatient (CLI) | payer OTHER ==
[2025-02-22 11:02] LABS: BILIRUBIN Negative (Negative); BLOOD Negative (Negative); CLARITY Clear (Clear); COLOR Yellow (Yellow); GLUCOSE 1+ (Negative); KETONE Negative (Negative); LEUKO ESTERASE Negative (Negative); NITRITE Negative (Negative); PH 6.5 (4.5-8.0); SPECIFIC GRAVITY 1.015 (1.001-1.030); UROBILINOGEN 0.2 E.U./dl (0.0-1.0)
[2025-02-22 11:18] LABS: WBC 0-2 wbc/hpf (0-5)
[2025-02-22 11:19] LABS: BACTERIA TRACE
[2025-02-22 11:24] LABS: BASO # 0.1 10*3/uL (0.0-0.1); BASO % 0.7 % (0.0-1.0); EOS # 0.8 10*3/uL (0.0-0.4); EOS % 9.8 % (1.0-4.0); HEMATOCRIT 25.7 % (42.0-52.0); MEAN CELL VOLUME 79.6 fl (80.0-94.0); MEAN CORPUSCULAR HGB 24.5 pg (27.0-31.0); MEAN CORPUSCULAR HGB CONC 30.7 g/dl (33.0-37.0); MEAN PLATELET VOLUME 9.9 fl (9.6-12.3); MONO # 0.6 10*3/uL (0.1-1.0); MONO % 7.7 % (3.0-9.0); NEUT # 5.8 10*3/uL (2.3-7.9); NEUT % 70.5 % (47.0-73.0); PLATELET COUNT AUTOMATED 303 10*3/uL (130-400); RED BLOOD COUNT 3.23 10*6/uL (4.50-5.90); RED CELL DISTRI WIDTH 17.1 % (0-14.5); WHITE BLOOD COUNT 8.2 10*3/uL (4.8-10.8)
[2025-02-22 12:11] LABS: VITAMIN D, 25-HYDROXY 31.8 ng/mL (30-100)
== END | disposition home or self-care (01) ==
LOC: LAB 10:27
PROVIDERS: ATTEND Nurse Practitioner Family
DX: E11.22 Type 2 diabetes mellitus with diabetic chronic kidney disease (principal); D63.1 Anemia in chronic kidney disease; N18.9 Chronic kidney disease, unspecified; R80.9 Proteinuria, unspecified; N25.81 Secondary hyperparathyroidism of renal origin; E55.9 Vitamin D deficiency, unspecified

== ENCOUNTER → 2025-05-04 | Outpatient (CLI) | payer OTHER | END | disposition home or self-care (01) | LOC: WOUNDCARE 01:29 | PROVIDERS: ATTEND Nurse Practitioner Family | DX: S80.812D Abrasion, left lower leg, subsequent encounter (principal); E11.622 Type 2 diabetes mellitus with other skin ulcer; L97.812 Non-pressure chronic ulcer of other part of right lower leg with fat layer exposed; I87.2 Venous insufficiency (chronic) (peripheral); E11.51 Type 2 diabetes mellitus with diabetic peripheral angiopathy without gangrene; E11.69 Type 2 diabetes mellitus with other specified complication; M86.9 Osteomyelitis, unspecified; I12.9 Hypertensive chronic kidney disease with stage 1 through stage 4 chronic kidney disease, or unspecified chronic kidney disease; E11.22 Type 2 diabetes mellitus with diabetic chronic kidney disease; N18.9 Chronic kidney disease, unspecified; E78.5 Hyperlipidemia, unspecified; F17.200 Nicotine dependence, unspecified, uncomplicated; Z99.2 Dependence on renal dialysis; Z86.16 Personal history of COVID-19; Z98.890 Other specified postprocedural states; Z79.899 Other long term (current) drug therapy; X58.XXXD Exposure to other specified factors, subsequent encounter ==

== ENCOUNTER → 2025-05-12 | Outpatient (CLI) | payer OTHER | END | disposition home or self-care (01) | LOC: WOUNDCARE 00:23 | PROVIDERS: ATTEND Nurse Practitioner Family | DX: E11.622 Type 2 diabetes mellitus with other skin ulcer (principal); L97.818 Non-pressure chronic ulcer of other part of right lower leg with other specified severity; I87.2 Venous insufficiency (chronic) (peripheral); S80.812D Abrasion, left lower leg, subsequent encounter; E11.51 Type 2 diabetes mellitus with diabetic peripheral angiopathy without gangrene; E11.69 Type 2 diabetes mellitus with other specified complication; M86.9 Osteomyelitis, unspecified; I12.9 Hypertensive chronic kidney disease with stage 1 through stage 4 chronic kidney disease, or unspecified chronic kidney disease; E11.22 Type 2 diabetes mellitus with diabetic chronic kidney disease; N18.9 Chronic kidney disease, unspecified; E78.5 Hyperlipidemia, unspecified; Z98.890 Other specified postprocedural states; Z79.899 Other long term (current) drug therapy; X58.XXXD Exposure to other specified factors, subsequent encounter ==

== ENCOUNTER → 2025-05-13 | Outpatient (CLI) | payer OTHER ==
[2025-05-13 12:21] LABS: BASO # 0.1 10*3/uL (0.0-0.1); BASO % 0.6 % (0.0-1.0); EOS # 0.3 10*3/uL (0.0-0.4); EOS % 4.0 % (1.0-4.0); MEAN CELL VOLUME 82.3 fl (80.0-94.0); MEAN CORPUSCULAR HGB 26.6 pg (27.0-31.0); MEAN PLATELET VOLUME 9.9 fl (9.6-12.3); MONO # 0.8 10*3/uL (0.1-1.0); MONO % 9.3 % (3.0-9.0); NEUT # 5.6 10*3/uL (2.3-7.9); NEUT % 68.3 % (47.0-73.0); NUCLEATED RED BLOOD CELL 0.0 % (0.0-0.0); NUCLEATED RED BLOOD CELL 0.0 10*3/uL (0.0-0.0); PLATELET COUNT AUTOMATED 178 10*3/uL (130-400); RED CELL DISTRI WIDTH 16.4 % (0-14.5)
[2025-05-13 12:33] LABS: BILIRUBIN Negative (Negative); BLOOD Negative (Negative); CLARITY Clear (Clear); COLOR Yellow (Yellow); KETONE Negative (Negative); LEUKO ESTERASE Negative (Negative); NITRITE Negative (Negative); PH 6.0 (4.5-8.0); SPECIFIC GRAVITY 1.010 (1.001-1.030); UROBILINOGEN 0.2 E.U./dl (0.0-1.0)
[2025-05-13 13:24] LABS: VITAMIN D, 25-HYDROXY 37.9 ng/mL (30-100)
[2025-05-13 14:11] LABS: BACTERIA TRACE; WBC 0-2 wbc/hpf (0-5)
== END | disposition home or self-care (01) ==
LOC: LAB 11:46
PROVIDERS: ATTEND Nurse Practitioner Family
DX: E11.22 Type 2 diabetes mellitus with diabetic chronic kidney disease (principal); N25.81 Secondary hyperparathyroidism of renal origin; R80.9 Proteinuria, unspecified; D63.1 Anemia in chronic kidney disease

== ENCOUNTER → 2025-05-23 | Outpatient (CLI) | payer OTHER ==
[2025-05-23 14:05] LABS: BUN 72.0 mg/dl (9-23)
== END ==
LOC: LAB 12:10
PROVIDERS: ATTEND Nurse Practitioner Family
DX: E87.5 Hyperkalemia (principal)

== ENCOUNTER → 2025-07-04 | Outpatient (CLI) | payer OTHER, MEDICAID ==
[2025-07-04 13:23] LABS: BASO # 0.1 10*3/uL (0.0-0.1); BASO % 0.6 % (0.0-1.0); EOS # 0.4 10*3/uL (0.0-0.4); EOS % 4.7 % (1.0-4.0); MEAN CELL VOLUME 88.9 fl (80.0-94.0); MEAN CORPUSCULAR HGB 28.4 pg (27.0-31.0); MEAN PLATELET VOLUME 9.4 fl (9.6-12.3); MONO # 0.8 10*3/uL (0.1-1.0); MONO % 9.6 % (3.0-9.0); NEUT # 5.5 10*3/uL (2.3-7.9); NEUT % 69.5 % (47.0-73.0); NUCLEATED RED BLOOD CELL 0.0 % (0.0-0.0); NUCLEATED RED BLOOD CELL 0.0 10*3/uL (0.0-0.0); PLATELET COUNT AUTOMATED 242 10*3/uL (130-400); RED CELL DISTRI WIDTH 15.5 % (0-14.5)
[2025-07-04 13:51] LABS: BUN 57.0 mg/dl (9-23); LDL CHOLESTEROL 122.0 mg/dL (9-159); SGPT/ALT 20.0 U/L (5-49)
== END | disposition home or self-care (01) ==
LOC: LAB 13:04
PROVIDERS: ATTEND Nurse Practitioner Primary Care
DX: I10 Essential (primary) hypertension (principal); E11.9 Type 2 diabetes mellitus without complications